=== PATIENT | male | born 1950 | race Caucasian/White ===

== ENCOUNTER → 2017-08-25 08:06 | Outpatient (CLI) | payer OTHER, MEDICARE, SELFPAY ==
--- NOTE | 2017-08-25 08:11 | RDU_ITS ---
Reason For Study: Stenosis Right Renal Artery Left Renal Artery Right renal artery ostium Left renal artery ostium 122.0/31.9 131.0/33.3 RSV/EDV. PSV/EDV. Right renal artery proximal Left renal artery proximal PSV/EDV 125.0/36.2 PSV/EDV. 124.0/42.9 . Right renal artery mid 130.0/35.6 Left renal artery mid 123.0/39.2 PSV/EDV. PSV/EDV . Right renal artery distal Left renal artery distal 126.0/50.2 121.0/37.4 PSV/EDV. PSV/EDV. Right Renal Parenchyma Left Renal Parenchyma Upper Pole Medula 52.4/14.1 Left upper pole medulla 44.7/15.5 PSV/EDV. PSV/EDV . Right upper pole medulla EDR .27 . Left upper pole medulla EDR .35 . Right upper pole medulla R.I. .73 . Left upper pole medulla R.I. .65 . Upper Andrey Cortx 32.1/9.5 PSV/EDV. UP Cortex 25.1/8.7 PSV/EDV. Right upper pole cortex EDR .30 . Left upper pole cortex EDR .35 . Right upper pole cortex R.I. .70 . Left upper pole cortex R.I. .65 . Right lower Pole medulla 44.0/11.3 Left lower Pole medulla 31.5/9.6 PSV/EDV . PSV/EDV . Right lower pole medulla EDR .26 . Left lower pole medulla EDR .30 . Right lower pole medulla R.I. .74 . Left lower pole medulla R.I. .70 . Lower Pole Cortex 29.6/7.6 PSV/EDV. Lower Pole Cortx 43.3/15.5 PSV/EDV. Right lower pole cortex EDR .26 . Left lower pole cortex EDR .36 . Right lower pole cortex R.I. .74 . Left lower pole cortex R.I. .64 . Right Renal Hilar Left Renal Hilar Right Hilar avg 61.6/21.4 PSV/EDV. LT Hilar avg 54.7/19.6 PSV/EDV . Right hilar acceleration time 59 Left hilar acceleration time 73 m/sec. m/sec. Right Renal Dimensions Left Renal Dimensions Right kidney size 9.1 cm . Left kidney size 9.0 cm . Right cortical dimension 1.5 cm . Left cortical dimension 1.5 cm . Procedures Technically difficult due to body habitus. Aorta not visualized. Interpretation Summary Renal artery velocities are bilaterally normal. Acceleration times are normal bilaterally. There is no evidence of hemodynamically significant renal artery stenosis on either side. Cortical dimensions are bilaterally normal. Kidneys appear normal in size bilaterally. The intra-abdominal aorta was not visualized. Ordering Physician: Tacos Sutton Performed By: Cheryl Benz RVT
== END ==
PROVIDERS: Family Provider Family Medicine; PCP Family Medicine; Visit Provider Family Medicine
DX: I70.1 Atherosclerosis of renal artery (principal); I71.4 Abdominal aortic aneurysm, without rupture
CPT/HCPCS: 93975

== ENCOUNTER → 2017-09-22 11:44 | Outpatient (CLI) | payer OTHER, MEDICARE, SELFPAY ==
[2017-09-22 15:48] LABS: Absolute Lymphocyte Count 1.04 X10^3/ul (0.83-4.51); Absolute Neutrophil Count 5.3 X10^3/uL (2.0-7.7); Basophil# 0.03 X10^3/uL; Basophil% 0.4 % (0-1); Eosinophil# 0.28 X10^3/uL; Eosinophils% 3.8 % (0-5); Hematocrit 40.9 % (40-54); Hemoglobin 13.5 g/dl (13.0-16.5); Lymphocyte # 1.04 X10^3/ul (4.0); Lymphocyte % 14.1 % (19-41); Mean Corpuscular Hgb 29.5 pg (27.0-32.0); Mean Corpuscular Volume 89.5 fL (80-94); Mean Platelet Vol. 9.4 fl (6.2-12.0); Monocyte# 0.72 X10^3/uL; Monocyte% 9.8 % (0-10); Neutrophil % 71.8 % (47-70); Platelet Count 334 K/mm3 (150-450); RBC Distribution Width CV 14.2 % (11.6-14.6); Red Blood Count 4.57 M/mm3 (4.6-6.2); White Blood Count 7.4 K/mm3 (4.4-11.0)
[2017-09-22 15:49] LABS: POSITIVE COUNT NO; POSITIVE DIFFERENTIAL NO; POSITIVE MORPHOLOGY NO
[2017-09-22 15:54] LABS: ALB/GLOB Ratio 0.7 RATIO (0.9-2.4); AST(SGOT) 12 U/L (15-37); Alanine Aminotransfer ALT/SGPT 21 U/L (16-61); Albumin, Serum 3.2 g/dL (3.2-5.0); Alkaline Phosphatase 93 U/L (45-117); Anion Gap 9 (5-15); BUN 26 mg/dL (7-18); BUN/Creat Ratio 17.7 RATIO (10-20); Calcium,Total 8.8 mg/dL (8.5-10.1); Chloride 104 mmol/L (98-107); Cholesterol 191 mg/dL (200); Creatinine, Serum 1.47 mg/dL (0.70-1.30); EST Glomerular Filtration Rate 51 mL/min (>60); Est Glom Filt Rate - Afr Amer 61 mL/min (>60); Globulin 4.3 g/dL (2.2-4.2); Glucose 128 mg/dL (74-106); High Density Lipoprotein 52 mg/dL; Potassium 3.6 mmol/L (3.5-5.1); Protein, Total 7.5 g/dL (6.4-8.2); Sodium Level 141 mmol/L (136-145); Triglycerides 109 mg/dL; Very Low Density Lipoprotein 22 mg/dL (5-40)
== END ==
PROVIDERS: Family Provider Family Medicine; PCP Family Medicine; Visit Provider Family Medicine
DX: I10 Essential (primary) hypertension (principal); E78.5 Hyperlipidemia, unspecified
CPT/HCPCS: 36415; 80053; 80061; 85025

== ENCOUNTER → 2018-03-08 06:54 | Outpatient (CLI) | payer MEDICARE, OTHER, SELFPAY ==
--- NOTE | 2018-03-08 13:50 | STRESSREP ---
Stress Test Report Date: 03/08/2018 Procedure: Pharmacologic stress nuclear imaging study Indications: Fatigue Consent: Per the patient Procedure: The patient underwent pharmacologic (Regadenoson) evaluation with a peak heart rate of 108 beats per minute (70 predicted maximal heart rate) and a peak blood pressure of 158/88 mmHg. The baseline ECG demonstrated normal sinus rhythm. The peak pharmacologic ECG demonstrated no obvious ECG changes. There were occasional PACs pretest. There was no complaint of chest discomfort during pharmacologic infusion or recovery. The examination was discontinued secondary to completion of protocol. Impression: 1. Pharmacologic (Regadenoson) evaluation 2. Peak pharmacologic ECG with with no obvious ECG changes. 3. There were no cardiac dysrhythmias pretest, during pharmacologic infusion, or recovery. 4. Nuclear images pending Myocardial perfusion imaging study: Technique: The patient was injected with 14.7 millicuries of technetium 99m Cardiolite and subsequently rest SPECT Cardiolite nuclear imaging was obtained in the horizontal long, vertical long, and short axis views. The patient underwent pharmacologic (Regadenoson) evaluation with a peak heart rate of 108 beats per minute (70 % percent predicted maximal heart rate) and a peak blood pressure of 158/88 mmHg. The patient was injected with 44.5 millicuries of technetium 99m Cardiolite and subsequently stress SPECT Cardiolite nuclear imaging was obtained in the horizontal long, vertical long, and short axis views. A gated Cardiolite study at peak stress was obtained. Interpretation: Rest and stress SPECT Cardiolite nuclear imaging status post realignment, normalization, and attenuation correction demonstrate extracardiac/gastrointestinal tracer uptake near the inferior segments and relative uniform tracer uptake and myocardial perfusion appearing within normal limits. There is end systolic thickening and brightening. The gated Cardiolite study demonstrates myocardial thickening and inward wall motion. The reported LVEF is 70 %. Impression: 1. Rest and stress SPECT Cardiolite nuclear imaging demonstrate relative uniform tracer uptake and myocardial perfusion appearing within normal limits. 2. The gated Cardiolite study reports an LVEF of 70 %. This note was generated with [email or web address] software. It may contain incorrect words, spelling, and punctuation that were not noted in checking the note before signing.
--- NOTE | 2018-03-08 13:53 | STRESSREP_ITS ---
Stress Test Report Date: 03/08/2018 Procedure: Pharmacologic stress nuclear imaging study Indications: Fatigue Consent: Per the patient Procedure: The patient underwent pharmacologic (Regadenoson) evaluation with a peak heart rate of 108 beats per minute (70 predicted maximal heart rate) and a peak blood pressure of 158/88 mmHg. The baseline ECG demonstrated normal sinus rhythm. The peak pharmacologic ECG demonstrated no obvious ECG changes. There were occasional PACs pretest. There was no complaint of chest discomfort during pharmacologic infusion or recovery. The examination was discontinued secondary to completion of protocol. Impression: 1. Pharmacologic (Regadenoson) evaluation 2. Peak pharmacologic ECG with with no obvious ECG changes. 3. There were no cardiac dysrhythmias pretest, during pharmacologic infusion, or recovery. 4. Nuclear images pending Myocardial perfusion imaging study: Technique: The patient was injected with 14.7 millicuries of technetium 99m Cardiolite and subsequently rest SPECT Cardiolite nuclear imaging was obtained in the horizontal long, vertical long, and short axis views. The patient underwent pharmacologic (Regadenoson) evaluation with a peak heart rate of 108 beats per minute (70 % percent predicted maximal heart rate) and a peak blood pressure of 158/88 mmHg. The patient was injected with 44.5 millicuries of technetium 99m Cardiolite and subsequently stress SPECT Cardiolite nuclear imaging was obtained in the horizontal long, vertical long, and short axis views. A gated Cardiolite study at peak stress was obtained. Interpretation: Rest and stress SPECT Cardiolite nuclear imaging status post realignment, normalization, and attenuation correction demonstrate extracardiac/enio rointestinal tracer uptake near the inferior segments and relative uniform tracer uptake and myocardial perfusion appearing within normal limits. There is end systolic thickening and brightening. The gated Cardiolite study demonstrates myocardial thickening and inward wall motion. The reported LVEF is 70 %. Impression: 1. Rest and stress SPECT Cardiolite nuclear imaging demonstrate relative uniform tracer uptake and myocardial perfusion appearing within normal limits. 2. The gated Cardiolite study reports an LVEF of 70 %. This note was generated with [email or web address] software. It may contain incorrect words, spelling, and punctuation that were not noted in checking the note before signing.
== END ==
PROVIDERS: Family Provider Family Medicine; PCP Family Medicine; Referring Provider Family Medicine; Visit Provider Family Medicine
DX: R07.9 Chest pain, unspecified (principal); I10 Essential (primary) hypertension; E78.5 Hyperlipidemia, unspecified
CPT/HCPCS: 78452; 93017; A9500; A4216; J2785

== ENCOUNTER → 2018-09-07 11:23 | Outpatient (CLI) | payer MEDICARE, OTHER, SELFPAY ==
[2013-07-17 12:47] VITALS: BMI 38.2
[2018-09-07 16:12] LABS: Absolute Lymphocyte Count 0.96 X10^3/ul (0.83-4.51); Absolute Neutrophil Count 5.3 X10^3/uL (2.0-7.7); Basophil# 0.05 X10^3/uL; Basophil% 0.7 % (0-1); Eosinophil# 0.21 X10^3/uL; Eosinophils% 2.9 % (0-5); Hematocrit 41.2 % (40-54); Hemoglobin 13.1 g/dl (13.0-16.5); Lymphocyte # 0.96 X10^3/ul (4.0); Lymphocyte % 13.1 % (19-41); Mean Corp Hgb Conc 31.8 g/gl (32-36); Mean Corpuscular Hgb 28.7 pg (27.0-32.0); Mean Corpuscular Volume 90.2 fL (80-94); Mean Platelet Vol. 9.1 fl (6.2-12.0); Monocyte# 0.78 X10^3/uL; Monocyte% 10.6 % (0-10); Neutrophil # 5.32 X10^3/uL (2.7-7.7); Neutrophil % 72.6 % (47-70); Platelet Count 334 K/mm3 (150-450); RBC Distribution Width CV 14.7 % (11.6-14.6); RBC Distribution Width SD 48.1 fl (35.1-43.9); Red Blood Count 4.57 M/mm3 (4.6-6.2); White Blood Count 7.3 K/mm3 (4.4-11.0)
[2018-09-07 16:20] LABS: POSITIVE COUNT NO; POSITIVE DIFFERENTIAL NO; POSITIVE MORPHOLOGY NO
[2018-09-07 16:22] LABS: ALB/GLOB Ratio 0.8 RATIO (0.9-2.4); AST(SGOT) 17 U/L (15-37); Alanine Aminotransfer ALT/SGPT 23 U/L (16-61); Albumin, Serum 3.3 g/dL (3.2-5.0); Alkaline Phosphatase 99 U/L (45-117); Anion Gap 6 (5-15); BUN 19 mg/dL (7-18); BUN/Creat Ratio 12.3 RATIO (10-20); Calcium,Total 8.7 mg/dL (8.5-10.1); Chloride 104 mmol/L (98-107); Creatinine, Serum 1.54 mg/dL (0.70-1.30); EST Glomerular Filtration Rate 48 mL/min (>60); Est Glom Filt Rate - Afr Amer 58 mL/min (>60); Globulin 4.4 g/dL (2.2-4.2); Glucose 111 mg/dL (74-106); Potassium 3.8 mmol/L (3.5-5.1); Protein, Total 7.7 g/dL (6.4-8.2); Sodium Level 140 mmol/L (136-145); Thyroid Stim Hormone (TSH) 1.25 uIU/mL (0.358-3.74)
[2018-09-07 16:29] LABS: Vitamin B12 1186 pg/mL (211-911)
[2018-09-07 16:49] LABS: Hemoglobin A1c 6.5 % (4.2-6.3)
== END ==
PROVIDERS: Family Provider Family Medicine; PCP Family Medicine; Visit Provider Family Medicine
DX: R20.2 Paresthesia of skin (principal); R09.89 Other specified symptoms and signs involving the circulatory and respiratory systems; R73.01 Impaired fasting glucose; G62.9 Polyneuropathy, unspecified
CPT/HCPCS: 36415; 80053; 82607; 83036; 84443; 85025

== ENCOUNTER → 2020-01-29 10:22 | Outpatient (CLI) | payer MEDICARE, OTHER, SELFPAY ==
[2013-07-17 12:47] VITALS: BMI 38.2
[2020-01-29 12:10] LABS: Absolute Lymphocyte Count 1.06 X10^3/uL (0.83-4.51); Absolute Neutrophil Count 5.6 X10^3/uL (2.0-7.7); Basophil# 0.05 X10^3/uL; Basophil% 0.6 % (0-1); Eosinophil# 0.26 X10^3/uL; Eosinophils% 3.4 % (0-5); Hematocrit 41.2 % (40-54); Hemoglobin 13.3 g/dL (13.0-16.5); Lymphocyte # 1.06 X10^3/ul (4.0); Lymphocyte % 13.7 % (19-41); Mean Corp Hgb Conc 32.3 g/dL (32-36); Mean Corpuscular Hgb 29.6 pg (27.0-32.0); Mean Corpuscular Volume 91.6 fL (80-94); Mean Platelet Vol. 9.4 fl (6.2-12.0); Monocyte# 0.71 X10^3/uL; Monocyte% 9.2 % (0-10); NRBC Flagged by Analyzer 0 % (0-5); Neutrophil # 5.64 X10^3/uL (2.7-7.7); Neutrophil % 72.7 % (47-70); Platelet Count 371 K/mm3 (150-450); RBC Distribution Width CV 13.5 % (11.6-14.6); RBC Distribution Width SD 44.8 fl (35.1-43.9); White Blood Count 7.8 K/mm3 (4.4-11.0)
[2020-01-29 12:31] LABS: Hemoglobin A1c 6.3 % (3.8-5.6)
[2020-01-29 12:35] LABS: ALB/GLOB Ratio 0.7 RATIO (0.9-2.4); AST(SGOT) 14 U/L (15-37); Alanine Aminotransfer ALT/SGPT 18 U/L (16-61); Albumin, Serum 3.3 g/dL (3.2-5.0); Alkaline Phosphatase 95 U/L (45-117); Anion Gap 4 (5-15); BUN 25 mg/dL (7-18); Calcium,Total 8.9 mg/dL (8.5-10.1); Chloride 106 mmol/L (98-107); Cholesterol 190 mg/dL (200); Creatinine, Serum 1.67 mg/dL (0.70-1.30); EST Glomerular Filtration Rate 44 mL/min (>60); Est Glom Filt Rate - Afr Amer 53 mL/min (>60); Globulin 4.8 g/dL (2.2-4.2); Glucose 103 mg/dL (74-106); High Density Lipoprotein 47 mg/dL; PSA,Total - Annual Screen 0.13 ng/mL (0.00-4.00); Potassium 4.1 mmol/L (3.5-5.1); Protein, Total 8.1 g/dL (6.4-8.2); Sodium Level 138 mmol/L (136-145); Triglycerides 174 mg/dL; Very Low Density Lipoprotein 35 mg/dL (5-40)
== END ==
PROVIDERS: PCP Family Medicine; Visit Provider Family Medicine
DX: E11.22 Type 2 diabetes mellitus with diabetic chronic kidney disease (principal); I12.9 Hypertensive chronic kidney disease with stage 1 through stage 4 chronic kidney disease, or unspecified chronic kidney disease; N18.3 Chronic kidney disease, stage 3 (moderate); Z12.5 Encounter for screening for malignant neoplasm of prostate; E78.5 Hyperlipidemia, unspecified
CPT/HCPCS: 36415; 80053; 80061; 83036; 84153; 85025; G0103

== ENCOUNTER 2020-03-29 14:38 | Inpatient (IN) | payer MEDICARE, OTHER, SELFPAY ==
[2020-03-29] VITALS (12 sets, daily range): BP systolic 131–180; BP diastolic 65–104; PULSE 92–121; RESP 18–21; TEMP 36.6–37.8; O2SAT 90–94; BMI 41.7; BMI 41.8
--- NOTE | 2020-03-29 14:51 | CT_ITS ---
STUDY: CT CERVICAL SPINE WITHOUT CONTRAST REASON FOR EXAM: Male, 69 years old. Syncope, fell off toilet, on blood thinners, neck pain. Hx hypertension, skin cancer. RADIATION DOSAGE (If Supplied By Facility): CTDIvol = ( 27.27 ) mGy, DLP = ( 539.73 ) mGycm TECHNIQUE: High resolution transaxial imaging was performed without contrast material. Sagittal and coronal images were reconstructed. Individualized dose optimization techniques were used for this CT. COMPARISON: None FINDINGS: Normal craniovertebral junction. Normal anterior atlantoaxial articulation. Normal odontoid process. Normal cervical lordosis. Normal vertebral bodies and posterior osseous elements. C2-3: Normal endplates. Normal disc height and morphology. Normal central canal and intervertebral neuroforamina. C3-4: Normal endplates. Normal disc height and morphology. Normal central canal and intervertebral neuroforamina. C4-5: Facet joint osteoarthritis on the right side. No significant stenosis seen. C5-6: There is evidence of uncovertebral arthrosis. Mild degree of bilateral neural foraminal stenosis. C6-7: Normal endplates. Normal disc height and morphology. Normal central canal and intervertebral neuroforamina. C7-T1: Normal endplates. Normal disc height and morphology. Normal central canal and intervertebral neuroforamina. Atherosclerotic plaque formation of the carotid bifurcations. CT/Spine Cervical without Contras IMPRESSION: Multilevel degenerative changes, as described above. Electronically Signed: Timothy Cruz, at 15:29 EDT , Service support ,
--- NOTE | 2020-03-29 14:51 | CT_ITS ---
STUDY: CT BRAIN WITHOUT CONTRAST REASON FOR EXAM: Male, 69 years old. Syncope, fell off toilet, on blood thinners, neck pain. Hx hypertension, skin cancer. RADIATION DOSAGE (If Supplied By Facility): CTDIvol = ( 44.99 ) mGy, DLP = ( 812.98 ) mGycm TECHNIQUE: Transaxial CT imaging of the brain was performed without administration of intravenous contrast material. Individualized dose optimization techniques were used for this CT. COMPARISON: 06/12/2013 FINDINGS: Normal soft tissue structures. Normal calvarium. There is mild cerebral atrophy with widening of the extra-axial spaces and ventricular dilatation. There are areas of decreased attenuation within the white matter tracts of the supratentorial brain, consistent with microvascular disease changes. There are small punctate calcifications of the basal ganglia which are seen in the aging brain as a normal variant. Normal brainstem. Normal cerebellum. There is no intracranial hemorrhage. There are no findings of an acute ischemic infarction. There is mucoperiosteal inflammatory disease of the paranasal sinuses consistent with moderate chronic sinusitis. CT/Brain/Head without Contrast IMPRESSION: Chronic involutional changes of the brain. Electronically Signed: Berry Teague MD at 15:34 EDT Tel , Service support ,
--- NOTE | 2020-03-29 14:53 | EKG12_ITS ---
Test Reason : Blood Pressure : / mmHG Vent. Rate : 112 BPM Atrial Rate : 112 BPM P-R Int : 150 ms QRS Dur : 074 ms QT Int : 324 ms P-R-T Axes : 047 -19 024 degrees QTc Int : 442 ms Sinus tachycardia Possible Inferior infarct , age undetermined Abnormal ECG Confirmed by CLIFF RODRIGUEZ, JARRETT ([id number]), material expeditor DEWEY MACHADO ([id number]) on 04/02/2020 11:14:20 AM Referred By: JACKY Confirmed By:JARRETT CORONADO MD
--- NOTE | 2020-03-29 14:54 | ED.DCSUM_ITS ---
History of Present Illness Informant: Patient Onset: Today Narrative: 69-year-old male with a past medical history of hypertension presents after syncopal episode. He was on the toilet having a bowel movement when he suddenly felt dizzy and fainted, falling forward and striking his head on the ground. He lost consciousness for an unknown duration. When he woke up he was dizzy for approximately 30 minutes. He called the squad to help him get up. He now has a mild headache, nausea, neck pain, and left-sided back pain. He states otherwise he is feeling well. He has had a productive cough for the last week. Denies fevers, chills, chest pain, shortness of breath, abdominal pain, diarrhea, or urinary symptoms. No focal neurological symptoms. <Leatha Silva - Last Filed: 03/29/20 17:53> <Victoriano Ann - Last Filed: 03/29/20 19:56> Chief Complaint: Syncope Past Medical History Past Medical History: - - hypertension Smoking Status: Former smoker <Leatha Silva - Last Filed: 03/29/20 17:53> - Family History Maternal Family History: Reports: Heart Disease Paternal Family History: Reports: Heart Disease <Victoriano Ann - Last Filed: 03/29/20 19:56> - Allergies and Home Meds Allergies/Adverse Reactions: Allergies Penicillins Allergy (Verified 07/05/13 14:39) Other DIFFICULTY BREATHING/ PASSED OUT Primary Care Physician: Tacos Sutton DO [Primary Care Provider] - Review of Systems General: Denies: Chills, Fever, Sweats Eyes: Denies: Visual changes - bilaterally, Diplopia ENT: Denies: Rhinorrhea, Sore throat Cardiovascular: Denies: Chest pain, Palpitations Respiratory: Reports: Cough, Sputum. Denies: Dyspnea, Dyspnea on exertion Gastrointestinal: Denies: Abdominal pain, Nausea, Vomiting, Diarrhea, Melena, Hematochezia Musculoskeletal: Reports: Neck pain, Back pain. Denies: Myalgias, Extremity Pain Skin: Denies: Abrasions, Wounds Neurological: Reports: Headache. Denies: Weakness, Parasthesia, Numbness <Leatha Silva - Last Filed: 03/29/20 17:53> Physical Exam Vital Signs/Narrative: Vital Signs Temp Pulse Resp BP Pulse Ox 03/29/20 14:49 100.1 F H 121 H 21 H 150/97 H 93 03/29/20 14:39 100.1 F H 120 H 20 H 150/97 H 92 General: Well nourished, Well developed, No Acute Distress Head: Normocephalic, Atraumatic - Head atraumatic, no deformity or crepitus. No racoon eyes, tabares sign, hemotympanum, septal hematoma, or CSF otorhhea/rhinorhhea. , - Eyes: Perrl, EOMI ENT: Moist mucous membranes, No rhinorrhea, TM's clear Neck: Supple, - - midline cervical tenderness, no step off or crepitus Cardiovascular: Regular rhythm, Tachycardia Respiratory: No distress, CTA bilaterally, Chest nontender Abdomen: Soft, Nontender, Nondistended Back: Normal Inspection, - - No midline spinal tenderness, no step off or crepitus. Tender over left trapezius . Negative for: Spinal tenderness Extremities: Nontender Skin: Normal color, No rash Neurological: Alert, Oriented x3, Cranial nerves II-XII grossly intact, Normal Strength, Normal Sensation Psychological: Normal affect, Normal Mood <Leatha Silva - Last Filed: 03/29/20 17:53> Vital Signs/Narrative: Vital Signs Pulse Resp BP Pulse Ox 03/29/20 19:05 99 18 141/65 H 90 03/29/20 18:10 110 H 18 168/104 H 93 03/29/20 17:03 109 H 19 H 92 03/29/20 16:18 109 H 18 177/103 H 90 03/29/20 15:58 110 H 20 H 180/100 H 92 <Victoriano Ann - Last Filed: 03/29/20 19:56> Diagnostic/Tx/Re-eval Clinical Impression(s) from Imaging Studies Brain CT 03/29/20 14:51 IMPRESSION: Chronic involutional changes of the brain. Electronically Signed: Berry Teague MD at 15:34 EDT Tel , Service support , Cervical Spine CT 03/29/20 14:51 IMPRESSION: Multilevel degenerative changes, as described above. Electronically Signed: Timothy Cruz, at 15:29 EDT , Service support , Chest X-Ray 03/29/20 15:17 IMPRESSION: Mild increased markings at the left lung base suggestive of either linear atelectasis and/or scarring. Electronically Signed: Timothy Cruz, at 15:30 EDT , Service support , Laboratory Data 03/29/20 03/29/20 03/29/20 15:30 15:30 15:30 WBC 9.3 RBC 5.10 Hgb 14.9 Hct 45.4 MCV 89.0 MCH 29.2 MCHC 32.8 RDW Std Deviation 44.0 H RDW Coeff of Ambreen 13.4 Plt Count 284 MPV 9.4 Immature Gran % (Auto) 0.200 Neut % (Auto) 82.3 H Lymph % (Auto) 7.9 L [place] % (Auto) 9.5 Eos % (Auto) 0.0 Baso % (Auto) 0.1 Absolute Neuts (auto) 7.7 Absolute Lymphs (auto) 0.74 L Nucleated RBC % 0 Sodium 136 Potassium 3.8 Chloride 100 Carbon Dioxide 30.0 Anion Gap 6 BUN 26 H Creatinine 2.03 H Estim Creat Clear Calc 34.34 Est GFR (MDRD) Af Amer 42 L Est GFR (MDRD) Non-Af 35 L BUN/Creatinine Ratio 12.8 Glucose 118 H Lactic Acid 1.1 Calcium 9.2 Troponin I < 0.015 Urine Color Urine Clarity Urine pH Ur Specific [place] Urine Protein Urine Glucose (UA) Urine Ketones Urine Occult Blood Urine Nitrite Urine Bilirubin Urine Urobilinogen Ur Leukocyte Esterase 03/29/20 16:55 WBC RBC Hgb Hct MCV MCH MCHC RDW Std Deviation RDW Coeff of [place] Plt Count MPV Immature Gran % (Auto) Neut % (Auto) Lymph % (Auto) [place] % (Auto) Eos % (Auto) Baso % (Auto) Absolute Neuts (auto) Absolute Lymphs (auto) Nucleated RBC % Sodium Potassium Chloride Carbon Dioxide Anion Gap BUN Creatinine Estim Creat Clear Calc Est GFR (MDRD) Af Amer Est GFR (MDRD) Non-Af BUN/Creatinine Ratio Glucose Lactic Acid Calcium Troponin I Urine Color Yellow Urine Clarity Clear Urine pH 6.5 Ur Specific [place] 1.010 Urine Protein 30 H Urine Glucose (UA) Normal Urine Ketones Negative Urine Occult Blood 10 H Urine Nitrite Negative Urine Bilirubin Negative Urine Urobilinogen Normal Ur Leukocyte Esterase Negative - Medical Decision Making Patient presented after syncopal episode with closed head injury and loss of consciousness with post syncopal dizziness. He appears well nontoxic. Vital signs show BP of 177/103, tachycardia in 120s, 90% on room air, 100.1 Fahrenheit. He is sitting comfortably in no respiratory distress. No signs of basilar skull fracture or obvious injuries on exam. Normal medical and neurological exam. Due to tachycardia and low grade fever, sepsis labs initiated. No leukocytosis and lactate is negative. Creatinine is 2 which is mildly elevated from 1.7 on 01/29/20. Urinalysis is normal. COVID-19 pending. EKG shows sinus tachycardia at rate of 112. No acute ischemic changes. Troponin negative. CT brain/C-spine are negative. Chest x-ray shows no acute process. Due to persistent tachycardia and 90% pulse ox, CTA will be obtained. <Leatha Silva - Last Filed: 03/29/20 17:53> Clinical Impression(s) from Imaging Studies Brain CT 03/29/20 14:51 IMPRESSION: Chronic involutional changes of the brain. Electronically Signed: Berry Teague MD at 15:34 EDT Tel , Service support , Cervical Spine CT 03/29/20 14:51 IMPRESSION: Multilevel degenerative changes, as described above. Electronically Signed: Timothy Cruz, at 15:29 EDT , Service support , Chest X-Ray 03/29/20 15:17 IMPRESSION: Mild increased markings at the left lung base suggestive of either linear atelectasis and/or scarring. Electronically Signed: Timothy Cruz, at 15:30 EDT , Service support , Chest CTA 03/29/20 17:52 IMPRESSION: Limited study. No central or segmental pulmonary embolus. No thoracic aortic aneurysm or dissection. No pulmonary infiltrates or pleural effusions. Atherosclerosis and coronary artery disease. Small hiatal hernia. Gallstones. Electronically Signed: Ehsan Alba, at 18:37 EDT Tel , Service support , - Medical Decision Making The patient presents with syncopal episode and tachycardia. He was initially borderline hypoxic with saturations of 90%. Head CT and C-spine were obtained which were negative. Patient does have mild renal insufficiency. With his low- grade fever, metabolic work-up was pursued. Labs are relatively unremarkable. I did obtain a CTA given his persistent tachycardia. This was negative. However, the patient's Covid was positive. With his borderline hypoxia and syncope, I do feel that he would benefit from admission. Impression 1. Syncope 2. Tachycardia 3. Covid infection <Victoriano Ann - Last Filed: 03/29/20 19:56> ED Disposition <Leatha Silva - Last Filed: 03/29/20 17:53> <Victoriano Ann - Last Filed: 03/29/20 19:56> - Plan for ED Patient: Disposition: Home or Assisted Living Referrals: Tacos Sutton DO [Primary Care Provider] -
--- NOTE | 2020-03-29 15:17 | RAD_ITS ---
STUDY: X-RAY CHEST REASON FOR EXAM: Male, 69 years old. SYNCOPE, DIZZINESS TECHNIQUE: Single AP portable view of the chest. COMPARISON: None. FINDINGS: EKG electrodes are seen. Minimal increased markings at the left lung base. This may represent either linear atelectasis and/or scarring. There is no demonstrated pleural abnormality. Normal size heart. Normal mediastinum and gabriela. Normal visualized pulmonary arteries. There is atherosclerotic calcification of the aortic arch with tortuosity. There are diffuse degenerative changes of the visualized thoracic spine. Normal visualized ribs, clavicles, and shoulders. There is no demonstrated abnormality of the visualized soft tissue structures of the upper abdomen. RAD/Chest 1 View (Portable) IMPRESSION: Mild increased markings at the left lung base suggestive of either linear atelectasis and/or scarring. Electronically Signed: Timothy Cruz, at 15:30 EDT , Service support ,
[2020-03-29 15:37] LABS: Absolute Lymphocyte Count 0.74 X10^3/uL (0.83-4.51); Absolute Neutrophil Count 7.7 X10^3/uL (2.0-7.7); Basophil# 0.01 X10^3/uL; Basophil% 0.1 % (0-1); Hematocrit 45.4 % (40-54); Hemoglobin 14.9 g/dL (13.0-16.5); Lymphocyte # 0.74 X10^3/ul (4.0); Lymphocyte % 7.9 % (19-41); Mean Corp Hgb Conc 32.8 g/dL (32-36); Mean Corpuscular Hgb 29.2 pg (27.0-32.0); Mean Platelet Vol. 9.4 fl (6.2-12.0); Monocyte# 0.89 X10^3/uL; Monocyte% 9.5 % (0-10); NRBC Flagged by Analyzer 0 % (0-5); Neutrophil # 7.67 X10^3/uL (2.7-7.7); Neutrophil % 82.3 % (47-70); Platelet Count 284 K/mm3 (150-450); RBC Distribution Width CV 13.4 % (11.6-14.6); White Blood Count 9.3 K/mm3 (4.4-11.0)
[2020-03-29 16:01] LABS: Anion Gap 6 (5-15); BUN 26 mg/dL (7-18); BUN/Creat Ratio 12.8 RATIO (10-20); Calcium,Total 9.2 mg/dL (8.5-10.1); Chloride 100 mmol/L (98-107); Creatinine, Serum 2.03 mg/dL (0.70-1.30); EST Glomerular Filtration Rate 35 mL/min (>60); Est Glom Filt Rate - Afr Amer 42 mL/min (>60); Estimated Creatinine Clearance 34.34 ml/min; Glucose 118 mg/dL (74-106); Potassium 3.8 mmol/L (3.5-5.1); Sodium Level 136 mmol/L (136-145)
[2020-03-29 16:08] LABS: Lactic Acid 1.1 mmol/L (0.4-1.9)
[2020-03-29] MEDS: Acetaminophen 500 MG Tablet 1000 MG PO (17:07)
[2020-03-29 17:19] LABS: Bacteria 0 SEEN /hpf (None Seen); Mucous, Urine 0 SEEN /hpf (<or=2+); Red Blood Cells-Urine 0 SEEN /hpf (0-5); Squamous Epithelial Cells - UA 0 SEEN /hpf (0-5); White Blood Cells 0 SEEN /hpf (0-5)
[2020-03-29 17:31] LABS: Color, Urine Yellow (Yellow); Glucose, Dipstick Normal (Normal); Ketone-Dipstick Negative (Negative); Leukocyte Esterase-Dipstick Negative /ul (Negative); Nitrite-Dipstick Negative (Negative); Occult Blood-Urine 10 /ul (Negative); Protein-Dipstick 30 mg/dl (Negative); Urine Bilirubin Dipstick Negative (Negative); Urine Clarity Clear (Clear); Urine Urobilinogen Normal (Normal); Urine pH 6.5 (5.0 - 8.0)
--- NOTE | 2020-03-29 17:52 | CT_ITS ---
STUDY: CTA CHEST REASON FOR EXAM: Male, 69 years old. PE/TACHYCARDIA/HYPOXIA. Per Dr. Mckeon (ER physician), inject even with creatinine of 2.03. Best images RADIATION DOSAGE (If Supplied By Facility): CTDIvol = ( 12.67 ) mGy, DLP = ( 567.05 ) mGycm TECHNIQUE: The examination was performed with the intravenous administration of IV 100mL [id number]. Post-processing of the angiographic images was performed, with multiplanar reformation and 3D reconstruction. Individualized dose optimization techniques were used for this CT. COMPARISON: None. FINDINGS: Evaluation for pulmonary embolus is limited by suboptimal contrast bolus. There is no central or segmental pulmonary embolus. The subsegmental branches are not well evaluated. There are no pulmonary infiltrates or pleural effusions. There is a calcified granuloma in the right lower lobe. The central airways are patent. There is no pneumothorax. There is no evidence of thoracic aortic aneurysm or dissection. There are atherosclerotic calcifications noted in the thoracic aorta. The heart and pericardium are within normal limits. There are coronary artery calcifications noted. Images through the upper abdomen demonstrate gallstones. There is a small hiatal hernia. There are no destructive osseous lesions. CT/CTA Chest W/WO Contrast IMPRESSION: Limited study. No central or segmental pulmonary embolus. No thoracic aortic aneurysm or dissection. No pulmonary infiltrates or pleural effusions. Atherosclerosis and coronary artery disease. Small hiatal hernia. Gallstones. Electronically Signed: Ehsan Alba, at 18:37 EDT Tel , Service support ,
--- NOTE | 2020-03-29 19:09 | ED.RN ---
called pt's and informed her that pt is being admitted.
--- NOTE | 2020-03-29 19:35 | HP.PCM_ITS ---
Problem List (1) SARS pneumonia Status: Acute (2) COVID-19 Status: Acute (3) Syncope and collapse Status: Acute (4) MADI (acute kidney injury) Status: Acute History of Present Illness Date of Admission: 03/29/20 Chief Complaint: SYNCOPE The patient is a 69 year old M with a significant history of hypertension who presents to the emergency department with syncope that occurred on the same day of presentation. Patient lost consciousness while sitting on the commode and fell forward hitting his left supraorbital area. He complains of pain at the left supraorbital area. Associated with symptoms is lightheadedness. Also he has been lethargic and fatigued for about a week. He feels nauseated. Also he has shortness of breath; chills, rigors and poor appetite. He denies a change in his smell sensation. However he has noticed a change in his taste. He reports a productive cough of greenish-yellow sputum. Patient did not check his temperature at home and is unsure whether he had a fever. Past Medical History Medical History: Medical History (Last Reviewed 03/29/20 @ 19:[address] Ajay Durham MD) Hypertension I10 Allergies Penicillins Allergy (Verified 07/05/13 14:39) Other DIFFICULTY BREATHING/ PASSED OUT Home Medications: Ambulatory Orders Medication Instructions Recorded Calcium (Elemental) [Os-Efe 500] 1,000 mg PO DAILY 07/05/13 Amlodipine [Norvasc] 10 mg PO DAILY 03/29/20 Hydrochlorothiazide [Hctz] 25 mg PO DAILY 03/29/20 Losartan Potassium [Cozaar] 100 mg PO DAILY 03/29/20 Magnesium Oxide [Magox 400] 400 mg PO DAILY 03/29/20 Vitamin E 400 units PO DAILY 03/29/20 Surgical History: total knee arthroplasty Smoking Status: Former smoker - *Family History Maternal History Items: Heart Disease Paternal History Items: Heart Disease Review of Systems Constitutional: Reports: Chills, Malaise, Weakness, Fatigue. Denies: Weight Change HEENT: Reports: Head Aches. Denies: Sinus Congestion, Sinus Drainage Cardiovascular: Reports: Light Headedness, Syncope. Denies: Chest Pain, Palpitations Respiratory: Reports: Cough, Shortness of Breath, Sputum production. Denies: Shortness of breath at rest Gastrointestinal: Reports: Nausea. Denies: Abdominal Pain, Vomiting Genitourinary: Denies: Dysuria Musculoskeletal: Denies: Joint Pain, Joint Tenderness Skin: Denies: Rash, Wounds Neurological: Denies: Numbness, Tingling, Focal weakness Psychiatric: Denies: Anxiety, Depression, Homicidal Ideations, Suicidal Ideations Hematologic/ Lymphatic: Denies: Easy Bruising, Easy Bleeding VTE Information - Inpt Only VTE Present on Admission: No VTE Mechan Device Prophylaxis: SCD's VTE Pharm Prophylaxis ordered?: No Patient Problems: Active and Suspected Problems (Last Updated 03/29/20 @ 19:[address] Ajay Durham MD) SARS pneumonia (Acute) COVID-19 (Acute) Syncope and collapse (Acute) MADI (acute kidney injury) (Acute) - Physical Exam Vitals/I&O's: Vital Signs Temp Pulse Resp BP Pulse Ox 100.1 F H 99 18 141/65 H 90 03/29/20 14:49 03/29/20 19:05 03/29/20 19:05 03/29/20 19:05 03/29/20 19:05 Oxygen Delivery Method Room Air Weight: 128.2 kg Body Mass Index (BMI) 41.7 General: Alert, Oriented x3, Cooperative HEENT: Atraumatic, PERRLA, EOMI, Normocephalic Neck: Supple, No JVD, Negative Carotid Bruits Lungs: Clear to auscultation, Normal air movement, No rhonchi, No wheeze, No rales Cardiovascular: Normal S1, Normal S2, No murmurs, Tachycardic Abdomen: Bowel Sounds Present, Soft, Non Tender Extremities: No edema, Capillary Refill Less than 3 Seconds Skin: No rashes, No breakdown, - - Ecchymosis at left periorbital area. Musculoskeletal: No Tenderness to Palpation of Joints or Extremities Neurological: Cranial nerves II-XII grossly intact Psych/Mental Status: Normal Affect, Appropriate Laboratory Results 03/29/20 15:30: WBC 9.3, RBC 5.10, Hgb 14.9, Hct 45.4, MCV 89.0, MCH 29.2, MCHC 32.8, RDW Std Deviation 44.0 H, RDW Coeff of Ambreen 13.4, Plt Count 284, MPV 9.4, Immature Gran % (Auto) 0.200, Neut % (Auto) 82.3 H, Lymph % (Auto) 7.9 L, [place] % (Auto) 9.5, Eos % (Auto) 0.0, Baso % (Auto) 0.1, Absolute Neuts (auto) 7.7, Absolute Lymphs (auto) 0.74 L, Nucleated RBC % 0 03/29/20 15:30: Sodium 136, Potassium 3.8, Chloride 100, Carbon Dioxide 30.0, Anion Gap 6, BUN 26 H, Creatinine 2.03 H, Estim Creat Clear Calc 34.34, Est GFR (MDRD) Af Amer 42 L, Est GFR (MDRD) Non-Af 35 L, BUN/Creatinine Ratio 12.8, Glucose 118 H, Calcium 9.2, Troponin I < 0.015 03/29/20 15:30: Lactic Acid 1.1 03/29/20 16:00: COVID-19 (SCOTT) Detected 03/29/20 16:55: Urine Color Yellow, Urine Clarity Clear, Urine pH 6.5, Ur Specific [place] 1.010, Urine Protein 30 H, Urine Glucose (UA) Normal, Urine Ketones Negative, Urine Occult Blood 10 H, Urine Nitrite Negative, Urine Bilirubin Negative, Urine Urobilinogen Normal, Ur Leukocyte Esterase Negative, Urine RBC 0 SEEN, Urine WBC 0 SEEN, Ur Squamous Epith Cells 0 SEEN, Urine Bacteria 0 SEEN, Urine Mucus 0 SEEN Current Medications Sodium Chloride () 1,000 mls @ 75 mls/hr IV .[id number] ROSALEE Assessment/Plan All Active Problems (Last Updated 03/29/20 @ 19:[address] Ajay Durham MD) SARS pneumonia (Acute) COVID-19 (Acute) Syncope and collapse (Acute) MADI (acute kidney injury) (Acute) SARS COVID-19 action Chest x-ray interpreted by radiologist and actual chest x-ray interpreted by mys elf: Mild increased markings at the left lung base suggestive of either linear atelectasis and/scarring. With tachycardia and hypoxia chest CTA was done at emergency department. Chest CTA did not show any aortic aneurysm or dissection. No pulmonary infiltrates or pleural effusion was noted. COVID-19 was positive. Discussed emergent department doctor to give Decadron IV. Decadron p.o. ordered. Infectious disease consult and pulmonology consult. Tylenol for fever and pain Mucinex for cough Incentive spirometer ordered. Syncope and collapse with concussion. Secondary to SARS Covid. Treatment of Covid as above. MADI Creatinine of 2.03 Baseline creatinine of 1.47-1.67. BUN of 26. BUN over creatinine is 12.8. Gentle IV hydration Trend BMP. Hypertension DVT prophylaxis Moderate to high risk of DVT/PE. Chest CT did not show PE. Because of concussion will avoid chemical chemoprophylaxis at this time. SCD ordered. Inpatient E&M: 48030 Init Hosp L3
[2020-03-29] MEDS: dexAMETHasone 10 MG/ML Vial 6 MG IV (20:30)
--- NOTE | 2020-03-29 21:01 | ED.RN ---
this nurse called pt's Saundra and informed her that pt was admitted to PCU 114.
[2020-03-29] MEDS: 0.9% Normal Saline 1,000 ML 75 ML IV (21:11)
[2020-03-30] MEDS: guaiFENesin 1,200 MG Tablet 1200 MG PO ×2 (00:15→10:33)
[2020-03-30 03:00] VITALS: PULSE 84
[2020-03-30 03:25] VITALS: BP 138/81; PULSE 81; RESP 20; TEMP 36.4; O2SAT 92
[2020-03-30 07:18] VITALS: PULSE 76
[2020-03-30 09:25] VITALS: BP 150/88; PULSE 87; RESP 18; TEMP 36.5; O2SAT 96
--- NOTE | 2020-03-30 10:20 | CASEMGMT ---
RN AUSTIN called patient in room for initial transition planning/care coordination assessment. RN AUSTIN introduced self and role at [facility]. Patient is alert and oriented. Patient willing to participate in assessment and is able to answer all questions appropriately. Care providers, pharmacy, and demographics verified. Patient wishes to discharge home, denies need for home health at this time. Patient states he has no further needs or concerns at this time. CM to follow for discharge planning needs that may arise. PCP: Herman Specialists: None Preferred Pharmacy: [facility] in [facility] retail ok at discharge Insurance: [facility] Prescription Benefit: yes Living Will/HPOA: yes, Saundra Zhu LNOK: Living Arrangements: Patient lives with in a 2 story condo with bed and bath on main level. No steps to enter the home. Patient states he is independent at home. Patient and able to self isolate at home. Transportation: self/ DME/HHC: Patient states he has shower chair, raised toilet, cane, walker, grab bars at home. Will monitor for need for home oxygen. Disposition Plan: Patient to discharge home with family support and follow-up plans in place. Geovanna HAMILTON, RN, CM
[2020-03-30 10:22] VITALS: BP 131/85; BP 150/88; BP 151/93; PULSE 101; PULSE 87; PULSE 93
[2020-03-30] MEDS: Calcium (Elemental) 500 MG Tablet 1000 MG PO (10:34)
[2020-03-30] MEDS: Magnesium Chloride 64 MG Delay Rel.Tablet 128 MG PO (10:34)
[2020-03-30] MEDS: Vitamin E 400 UNITS Capsule PO (10:34)
[2020-03-30] MEDS: dexAMETHasone 4 MG Tablet 6 MG PO (10:34)
[2020-03-30] MEDS: amLODIPine 10 MG Tablet PO (10:35)
[2020-03-30] MEDS: 0.9% Normal Saline 1,000 ML 75 ML IV (10:36)
--- NOTE | 2020-03-30 11:28 | DCINST_ITS ---
- Discharge Diagnoses Current Active Problems: Current Active and Chronic Problems (Last Reviewed 03/29/20 @ 19:[address] Ajay Duhram MD) SARS pneumonia (Acute) COVID-19 (Acute) Syncope and collapse (Acute) MADI (acute kidney injury) (Acute) You will use the following diet at home:: No restrictions Your food should be the consistency of: Regular Discharge Activity: Return to Normal Activity, - - get up slowly Call your doctor if you observe: Fever of 101 or Higher, Shortness of breath Additional Instructions: Self isolate for at least 10 days since symptoms began or the first postive COVID-19 test AND at least one day (24 hours) have passed since resolution of fever without the use of fever-reducing agents AND improvement of symptoms (e.g., cough, shortness of breath) When around people in the same room, wear a face mask. Individuals also in the room should wear a mask. If possible, use a different bathroom and bedroom. Perform adequate hand hygiene. Avoid sharing dishes, glasses, etc. Family members with close contact with you and/or postive for COVID-19 should follow these instructions. Allergies/Adverse Reactions: Allergies Penicillins Allergy (Verified 07/05/13 14:39) Other DIFFICULTY BREATHING/ PASSED OUT Medications to take at Discharge Calcium (Elemental) [Os-Efe 500] 1,000 mg PO DAILY 07/05/13 Amlodipine [Norvasc] 10 mg PO DAILY 03/29/20 Magnesium Oxide [Magox 400] 400 mg PO DAILY 03/29/20 Vitamin E 400 units PO DAILY 03/29/20 Primary Care Physician: Tacos Sutton DO [Primary Care Provider] - Within 2 Weeks Test Results: Test results from this visit will be discussed in further detail at your follow- up appointment, if applicable. Proposed Discharge Date: 03/30/20
--- NOTE | 2020-03-30 11:30 | DS.PCM_ITS ---
Discharge Date and Diagnosis - Problem List Patient Problems: Active and Suspected Problems (Last Reviewed 03/29/20 @ 19:[address] Ajay Durham MD) SARS pneumonia (Acute) COVID-19 (Acute) Syncope and collapse (Acute) MADI (acute kidney injury) (Acute) Date of Admission: 03/29/20 Date of Discharge: 03/30/20 - Primary Discharge Diagnosis Acute Problems: Active Problems (Last Reviewed 03/29/20 @ 19:[address] Ajay Durham MD) SARS pneumonia (Acute) COVID-19 (Acute) Syncope and collapse (Acute) MADI (acute kidney injury) (Acute) Hospital Course and Treatment Imaging Results: Clinical Impression(s) from Imaging Studies Brain CT 03/29/20 14:51 IMPRESSION: Chronic involutional changes of the brain. Electronically Signed: Berry Teague MD at 15:34 EDT Tel , Service support , Cervical Spine CT 03/29/20 14:51 IMPRESSION: Multilevel degenerative changes, as described above. Electronically Signed: Timothy Cruz, at 15:29 EDT , Service support , Chest X-Ray 03/29/20 15:17 IMPRESSION: Mild increased markings at the left lung base suggestive of either linear atelectasis and/or scarring. Electronically Signed: Timothy Cruz, at 15:30 EDT , Service support , Chest CTA 03/29/20 17:52 IMPRESSION: Limited study. No central or segmental pulmonary embolus. No thoracic aortic aneurysm or dissection. No pulmonary infiltrates or pleural effusions. Atherosclerosis and coronary artery disease. Small hiatal hernia. Gallstones. Electronically Signed: Ehsan Alba, at 18:37 EDT Tel , Service support , Operations: None Procedures: None Summary of Care Provided: The patient is a 69 year old M presents with a syncopal episode. Patient was on the toilet and passed out hitting his head. Patient not been feeling well for about a week was having nausea and not eating well. Patient presented she and underwent work-up, including a head CT, CTA of his chest and CT spine that were all unremarkable. Patient was positive for COVID-19. Orthostatics were checked and blood pressure did drop from sitting to standing, however, patient was otherwise asymptomatic. Creatinine is up from baseline around 2, baseline being around 1.5-1.6. Patient advised to hold off and his HCTZ and losartan for now but to continue with his amlodipine. Patient is here to follow-up with his primary care doctor in 2 weeks for further evaluation. It is felt that this episode was probably a vasovagal due to patient being on the commode but also being ill. Patient is otherwise feeling well and is comfortable returning home. Patient's also has similar symptoms. Instructions have been provided in regards to self-isolation for the COVID-19. [] From COVID-19 standpoint, patient is doing well and has no respiratory issues. Patient advised to be aware that is possible that his symptoms could get worse in the coming days and if he is having increasing shortness of breath to let his primary care doctor know or to come to the emergency room. Patient Problems: Active and Suspected Problems (Last Reviewed 03/29/20 @ 19:[address] Ajay Durham MD) SARS pneumonia (Acute) COVID-19 (Acute) Syncope and collapse (Acute) MADI (acute kidney injury) (Acute) - Physical Exam Vitals/I&O's: Vital Signs Temp Pulse Resp BP Pulse Ox 36.5 C L 87 18 150/88 H 96 03/30/20 09:25 03/30/20 10:22 03/30/20 09:25 03/30/20 10:22 03/30/20 09:25 Oxygen Delivery Method Room Air Weight: 128.4 kg Body Mass Index (BMI) 41.8 Orthostatic Vital Signs Start: 03/30/20 10:22 Freq: q24h Status: Active Protocol: Activity Type Activity Date Activity User E-Sign Co-Sign Detail Recorded Client Recorded Date Recorded By Document 03/30/20 10[id number] 03/30/20 10:24 03/30/20 10:22 Orthostatic Vitals Standing -Blood Pressure (90/60-120/80) 131/85 H -Extremity Use Right Arm -Pulse Rate (60-100) 101 H Sitting -Blood Pressure (90/60-120/80) 151/93 H -Extremity Use Right Arm -Pulse Rate (60-100) 93 Lying -Blood Pressure (90/60-120/80) 150/88 H -Extremity Use Right Arm -Pulse Rate (60-100) 87 Intake and Output for Last 24 Hours 03/28/20 03/29/20 03/30/20 23:59 23:59 23:59 Intake Total 740 / 740 1240 / 1240 Output Total 200 / 200 Balance 740 / 740 1040 / 1040 General: Alert, Cooperative, No apparent distress HEENT: Atraumatic, Normocephalic Oral: Moist Mucosa, No Gingival or Mucosal Lesions/ Ulcerations Neck: No Nodes, Thyroid Normal Size and Texture Lungs: Clear to auscultation, Normal air movement, No rhonchi, No wheeze, No rales Neurological: - - When patient was stood up, he was otherwise steady on his feet and did not sway. Laboratory Results 03/29/20 15:30: WBC 9.3, RBC 5.10, Hgb 14.9, Hct 45.4, MCV 89.0, MCH 29.2, MCHC 32.8, RDW Std Deviation 44.0 H, RDW Coeff of Ambreen 13.4, Plt Count 284, MPV 9.4, Immature Gran % (Auto) 0.200, Neut % (Auto) 82.3 H, Lymph % (Auto) 7.9 L, [place] % (Auto) 9.5, Eos % (Auto) 0.0, Baso % (Auto) 0.1, Absolute Neuts (auto) 7.7, Absolute Lymphs (auto) 0.74 L, Nucleated RBC % 0 03/29/20 15:30: Sodium 136, Potassium 3.8, Chloride 100, Carbon Dioxide 30.0, Anion Gap 6, BUN 26 H, Creatinine 2.03 H, Estim Creat Clear Calc 34.34, Est GFR (MDRD) Af Amer 42 L, Est GFR (MDRD) Non-Af 35 L, BUN/Creatinine Ratio 12.8, Glucose 118 H, Calcium 9.2, Troponin I < 0.015 03/29/20 15:30: Lactic Acid 1.1 03/29/20 16:00: COVID-19 (SCOTT) Detected 03/29/20 16:55: Urine Color Yellow, Urine Clarity Clear, Urine pH 6.5, Ur Specific [place] 1.010, Urine Protein 30 H, Urine Glucose (UA) Normal, Urine Ketones Negative, Urine Occult Blood 10 H, Urine Nitrite Negative, Urine Bilirubin Negative, Urine Urobilinogen Normal, Ur Leukocyte Esterase Negative, Urine RBC 0 SEEN, Urine WBC 0 SEEN, Ur Squamous Epith Cells 0 SEEN, Urine Bacteria 0 SEEN, Urine Mucus 0 SEEN Current Medications Acetaminophen (Acetaminophen 325 Mg Tablet) 650 mg PO Q6H PRN PRN PRN Reason: Pain Score 1-10/Temp > 100.7 F Amlodipine Besylate (Amlodipine 10 Mg Tablet) 10 mg PO DAILY [facility] Last Admin: 03/30/20 10:35 Dose: 10 mg Documented by: Calcium Carbonate (Calcium (Elemental) 500 Mg Tablet) 1,000 mg PO DAILY [facility] Last Admin: 03/30/20 10:34 Dose: 1,000 mg Documented by: Dexamethasone (Dexamethasone 4 Mg Tablet) 6 mg PO DAILY [facility] Last Admin: 03/30/20 10:34 Dose: 6 mg Documented by: Guaifenesin (Guaifenesin 1,200 Mg Tablet) 1,200 mg PO BID [facility] Last Admin: 03/30/20 10:33 Dose: 1,200 mg Documented by: Sodium Chloride () 1,000 mls @ 75 mls/hr IV .[id number] [facility] Last Admin: 03/30/20 10:36 Dose: 75 mls/hr Documented by: Labetalol HCl (Labetalol (Prefilled) 20 Mg/4 Ml) 10 mg IV Q6 PRN PRN Reason: SBP > 160 OR DBP > 120 Magnesium Chloride (Magnesium Chloride 64 Mg Delay Rel.Tablet) 128 mg PO DAILY [facility] Last Admin: 03/30/20 10:34 Dose: 128 mg Documented by: Melatonin (Melatonin 3 Mg Tablet) 3 mg PO QHS PRN PRN PRN Reason: INSOMNIA Sodium Chloride (0.9% Saline Lock 10 Ml Syringe) 10 - 40 ml IV UD PRN PRN Reason: SALINE FLUSH Vitamin E (Vitamin E 400 Units Capsule) 400 units PO DAILY [facility] Last Admin: 03/30/20 10:34 Dose: 400 units Documented by: Discharge Diet: No Restrictions Discharge Activity: Return to Normal Activity, - - get up slowly Call your doctor if you observe: Fever of 101 or Higher, Shortness of breath Home Medications: Medications to take at Discharge Calcium (Elemental) [Os-Efe 500] 1,000 mg PO DAILY 07/05/13 Amlodipine [Norvasc] 10 mg PO DAILY 03/29/20 Magnesium Oxide [Magox 400] 400 mg PO DAILY 03/29/20 Vitamin E 400 units PO DAILY 03/29/20 Primary Care Physician: Tacos Sutton DO [Primary Care Provider] - Within 2 Weeks Disposition: Home Minutes spent on discharge:: 32 Patient Condition:: Good Medical Necessity - Tobacco Use Smoking Status: Former smoker Tobacco Use: Cigarettes Meaningful Use Info Meaningful Use Diagnoses (Choose all that apply): None applicable Inpatient E&M: 65613 Disch Hosp
[2020-03-30 12:25] VITALS: BP 147/71; PULSE 80; RESP 18; TEMP 36.6; O2SAT 97
--- NOTE | 2020-04-02 16:12 | CASEMGMT ---
PAWEL AVILA COVID F/U Phone Call Discharge date: 03/30/2020 Call date: 04/02/2020 Call time: [id number] Admission dx: Dizziness, SARS COVID 19 w/ syncope Pt states 'i could be doing better' since he was discharged. Pt states he is tired and has been sleeping a lot. Pt speaks in full sentences in no distress at this time. Pt states no questions regarding discharge instructions/medications at this time. Pt states has not been symptomatic. Pt states BP was 133/80 this am and heart rate was 104 but pt did have a low grade fever still of 100. Pt states pulse ox has been running lower but pt states he was coughing a lot this am. Pt c/o no SOB at this time while at rest and states cough is now productive of yellow/green sputum and has alleviated some. Pt states has f/u phone call with Dr. Sutton tomorrow and plans to keep. Pt aware to continue to monitor vitals and notify Dr. Sutton during call, voices understanding. Pt voices no further questions/concerns/needs at this time. [place] PAWEL AVILA
== END 2020-03-30 13:22 | disposition home or self-care (01) | DRG 178 ==
LOC: ED 19:46 → PCU 20:03
PROVIDERS: Emergency Medicine; Admitting Provider Hospitalist; Emergency Provider Physician Assistant; PCP Family Medicine
DX: U07.1 COVID-19 (principal); S06.0X9A Concussion with loss of consciousness of unspecified duration, initial encounter; N17.9 Acute kidney failure, unspecified; Z68.41 Body mass index [BMI] 40.0-44.9, adult; I10 Essential (primary) hypertension; E66.01 Morbid (severe) obesity due to excess calories; W18.11XA Fall from or off toilet without subsequent striking against object, initial encounter; Y93.9 Activity, unspecified; Y92.9 Unspecified place or not applicable; Z79.899 Other long term (current) drug therapy; Z87.891 Personal history of nicotine dependence
CPT/HCPCS: 70450; 71045; 71275; 72125; 80048; 81001; 83605; 84484; 85025; 87635; 93005; 97162; 97166; 99251; 99285; J7030; J7040; Q9967; A4216; G0463; U0002

== ENCOUNTER → 2020-08-07 14:19 | Outpatient (CLI) | payer MEDICARE, OTHER, SELFPAY ==
[2020-03-29 20:55] VITALS: BMI 41.8
[2020-08-07 16:56] LABS: Absolute Lymphocyte Count 1.77 X10^3/uL (0.83-4.51); Absolute Neutrophil Count 6.7 X10^3/uL (2.0-7.7); Basophil# 0.08 X10^3/uL; Basophil% 0.8 % (0-1); Eosinophil# 0.31 X10^3/uL; Eosinophils% 3.2 % (0-5); Hematocrit 45.5 % (40-54); Hemoglobin 14.6 g/dL (13.0-16.5); Lymphocyte # 1.77 X10^3/ul (4.0); Lymphocyte % 18.3 % (19-41); Mean Corp Hgb Conc 32.1 g/dL (32-36); Mean Corpuscular Hgb 28.9 pg (27.0-32.0); Mean Corpuscular Volume 90.1 fL (80-94); Mean Platelet Vol. 9.4 fl (6.2-12.0); Monocyte# 0.84 X10^3/uL; Monocyte% 8.7 % (0-10); NRBC Flagged by Analyzer 0 % (0-5); Neutrophil # 6.65 X10^3/uL (2.7-7.7); Neutrophil % 68.8 % (47-70); Platelet Count 360 K/mm3 (150-450); RBC Distribution Width CV 13.4 % (11.6-14.6); Red Blood Count 5.05 M/mm3 (4.6-6.2); White Blood Count 9.7 K/mm3 (4.4-11.0)
[2020-08-07 17:36] LABS: ALB/GLOB Ratio 0.7 RATIO (0.9-2.4); AST(SGOT) 14 U/L (15-37); Alanine Aminotransfer ALT/SGPT 24 U/L (16-61); Albumin, Serum 3.3 g/dL (3.2-5.0); Alkaline Phosphatase 106 U/L (45-117); Anion Gap 8 (5-15); BUN 16 mg/dL (7-18); BUN/Creat Ratio 11.3 RATIO (10-20); CRP 8.41 mg/L (0.0-3.0); Chloride 103 mmol/L (98-107); Creatinine, Serum 1.41 mg/dL (0.70-1.30); EST Glomerular Filtration Rate 53 mL/min (>60); Est Glom Filt Rate - Afr Amer 64 mL/min (>60); Globulin 4.6 g/dL (2.2-4.2); Glucose 144 mg/dL (74-106); Lipase 106 U/L (73-393); Potassium 3.4 mmol/L (3.5-5.1); Protein, Total 7.9 g/dL (6.4-8.2); Sodium Level 139 mmol/L (136-145)
== END ==
PROVIDERS: PCP Family Medicine; Visit Provider Family Medicine
DX: R10.9 Unspecified abdominal pain (principal)
CPT/HCPCS: 36415; 80053; 83690; 85025; 86140

== ENCOUNTER 2020-08-12 11:14 | Emergency (ER) | payer MEDICARE, OTHER, SELFPAY ==
[2020-03-29 20:55] VITALS: BMI 41.8
[2020-08-12 11:14] VITALS: BP 183/93; PULSE 111; RESP 17; TEMP 36.2; O2SAT 96; BMI 41.3
--- NOTE | 2020-08-12 11:45 | CT_ITS ---
STUDY: CT ABDOMEN AND PELVIS WITH CONTRAST REASON FOR EXAM: Male, 70 years old. Abd pain for weeks RADIATION DOSAGE (If Supplied By Facility): CTDIvol = ( 23.75 ) mGy, DLP = ( 1649.54 ) mGycm TECHNIQUE: Transaxial images were obtained from the dome of the diaphragm to the symphysis pubis without oral contrast. IV 100mL Isovue-300 was administered. Sagittal and coronal images were reconstructed. Individualized dose optimization techniques were used for this CT. COMPARISON: None. FINDINGS: The visualized lung bases are unremarkable. The visualized portions of the heart are within normal limits. There is decreased attenuation of the liver consistent with steatosis. There are multiple gallstones. Normal spleen. Normal pancreas. Normal bilateral adrenal glands. Normal right kidney. Normal left kidney. Normal visualized stomach. Normal small intestine. Normal colon. The appendix is visualized and appears normal. Appendix best seen on coronal recon images 68 through 77 There is diffuse atherosclerotic calcification of the abdominal aorta, without a demonstrated aneurysm. Normal inferior vena cava. Normal retroperitoneum. Normal urinary bladder. There are prostatic calcifications. Normal abdominal wall. There are diffuse degenerative changes of the visualized lumbar spine, and pelvis. CT/Abdomen/Pelvis W IV Cont ONLY IMPRESSION: Fatty liver, no discrete lesion Cholelithiasis, no CT evidence of acute cholecystitis No free intraperitoneal fluid, air, or suspicious adenopathy Normal appendix visualized Diffuse atherosclerosis Electronically Signed: Jonathan Klein MD at 12:35 EDT , Service support ,
--- NOTE | 2020-08-12 11:47 | ED.DCSUM_ITS ---
- ER Visit Summary Date of Service: 08/12/20 Chief Complaint: Diffuse abdominal pain for weeks History of Present Illness: The patient is a 70 M history of hypertension, renal insufficiency and skin cancer. Patient states he has had abdominal pain for 2 to 3 weeks. Initially started the left lower quadrant and now is using. He complains of nausea and vomiting. 10 pound weight loss. Denies any dysuria. Denies any constipation nor diarrhea. No melena. Last bowel movement today. No fever or chills. No abdominal trauma. He is never had any abdominal surgeries. Physical Examination: Older male accompanied by his vital signs stable afebrile. H EENT exam unremarkable. Nontender. Lungs clear to auscultation. Heart regular rhythm rate about 110 no murmur. Abdomen soft. Diffusely tender. Left upper and lower quadrant. Epigastric region. No signs of obstruction. No pulsatile mass. No obvious hernia. No signs of trauma. Right lower quadrant is nontender. No peritoneal signs. Positive bowel sounds. Patient moving all 4 extremities. Neurovascular intact. No edema. Neurologically is awake and alert with no focal motor deficits. The Test Results: CBC normal white count of 7. Hemoglobin 14. Chemistries show mild renal insufficiency creatinine 1.5 he has been higher than that before. Normal gap. Liver enzymes normal. Lipase normal. UA normal. CAT scan abdomen pelvis with IV contrast shows cholelithiasis. Otherwise no acute abnormality. Normal appendix. This is read by the radiologist and reviewed by me. Exam unchanged at 1320. No peritoneal signs. Discussed with the patient and his . They stated been having symptoms for 2 to 3 weeks. Has had a 10 pound weight loss and they were hoping to see if at all possible he could be admitted to have this done. I will discuss with the surgeon [employer] manufacturing consultant. Emergency Department Course and Treatment: Patient treated with IV fluids and IV Zofran for nausea. Will have a CAT scan and labs. He did not want a thing right now for pain. Treatment Plan: I spoke to the general surgeon on-call Dr. Joseph Gold. He will see the patient tomorrow in his office at 9:45 AM and if appropriate patient do a cholecystectomy on him this week. Disposition: dc Impression: Acute abdominal pain Acute biliary colic secondary to cholelithiasis. This note was generated with [employer] dictation software. It may contain incorrect words, spelling, and punctuation that were not noted in review of the chart prior to signing ED Disposition - Plan for ED Patient: Referrals: Tacos Sutton DO [Primary Care Provider] -
[2020-08-12] MEDS: Ondansetron 4 MG/2 ML Vial IV (12:04)
[2020-08-12] MEDS: 0.9% Normal Saline 1,000 ML 1000 ML IV (12:04)
[2020-08-12 12:15] LABS: Bacteria 0 SEEN /hpf (None Seen); Mucous, Urine 0 SEEN /hpf (<or=2+); Squamous Epithelial Cells - UA 0 SEEN /hpf (0-5); White Blood Cells 0 SEEN /hpf (0-5)
[2020-08-12 12:22] LABS: Absolute Lymphocyte Count 1.37 X10^3/uL (0.83-4.51); Absolute Neutrophil Count 5.2 X10^3/uL (2.0-7.7); Basophil# 0.06 X10^3/uL; Basophil% 0.8 % (0-1); Color, Urine Yellow (Yellow); Eosinophil# 0.15 X10^3/uL; Glucose, Dipstick Normal (Normal); Hematocrit 46.6 % (40-54); Hemoglobin 14.9 g/dL (13.0-16.5); Ketone-Dipstick 5 mg/dl (Negative); Leukocyte Esterase-Dipstick Negative /ul (Negative); Lymphocyte # 1.37 X10^3/ul (4.0); Lymphocyte % 18.2 % (19-41); Mean Corpuscular Hgb 28.6 pg (27.0-32.0); Mean Corpuscular Volume 89.4 fL (80-94); Mean Platelet Vol. 9.2 fl (6.2-12.0); Monocyte# 0.68 X10^3/uL; Monocyte% 9.1 % (0-10); NRBC Flagged by Analyzer 0 % (0-5); Neutrophil # 5.23 X10^3/uL (2.7-7.7); Neutrophil % 69.6 % (47-70); Nitrite-Dipstick Negative (Negative); Occult Blood-Urine 10 /ul (Negative); Platelet Count 324 K/mm3 (150-450); Protein-Dipstick 30 mg/dl (Negative); RBC Distribution Width CV 13.2 % (11.6-14.6); RBC Distribution Width SD 43.2 fl (35.1-43.9); Red Blood Count 5.21 M/mm3 (4.6-6.2); Specific Gravity, Urine 1.025 (1.002-1.030); Urine Bilirubin Dipstick Negative (Negative); Urine Clarity Clear (Clear); Urine Urobilinogen Normal (Normal); White Blood Count 7.5 K/mm3 (4.4-11.0)
[2020-08-12 12:29] LABS: Red Blood Cells-Urine 0-5 SEEN /hpf (0-5)
[2020-08-12 12:39] LABS: AST(SGOT) 14 U/L (15-37); Alanine Aminotransfer ALT/SGPT 22 U/L (16-61); Albumin, Serum 3.2 g/dL (3.2-5.0); Alkaline Phosphatase 105 U/L (45-117); Anion Gap 6 (5-15); BUN 19 mg/dL (7-18); BUN/Creat Ratio 12.7 RATIO (10-20); Bilirubin, Direct 0.09 mg/dL (0.00-0.30); Calcium,Total 9.1 mg/dL (8.5-10.1); Chloride 103 mmol/L (98-107); EST Glomerular Filtration Rate 49 mL/min (>60); Est Glom Filt Rate - Afr Amer 59 mL/min (>60); Estimated Creatinine Clearance 45.82 ml/min; Globulin 4.7 g/dL (2.2-4.2); Glucose 158 mg/dL (74-106); Lipase 114 U/L (73-393); Potassium 3.7 mmol/L (3.5-5.1); Protein, Total 7.9 g/dL (6.4-8.2); Sodium Level 137 mmol/L (136-145)
--- NOTE | 2020-08-12 13:26 | DCINST.ED_ITS ---
ED Disposition - Plan for ED Patient: Disposition: Home or Assisted Living Instructions: ED Gallstones with Biliary Colic Referrals: Joseph Gold MD [STAFF PHYSICIAN] - 1 Day Additional Instructions: Dr. Joseph Gold's office tomorrow at 9:45 in the morning. He is going to evaluate you and if possible he will get you on the surgery schedule for Wednesday to have your gallbladder taken out. [place] diet. Tylenol for pain.
[2020-08-12 13:42] VITALS: BP 170/96; PULSE 87; RESP 16; TEMP 36.2; O2SAT 95
--- NOTE | 2020-08-12 13:44 | ED.RN ---
received approx 500 ml of fluids at dc
== END 2020-08-12 13:44 | disposition home or self-care (01) ==
PROVIDERS: Emergency Provider Emergency Medicine; PCP Family Medicine
DX: K80.70 Calculus of gallbladder and bile duct without cholecystitis without obstruction (principal); I10 Essential (primary) hypertension; N28.9 Disorder of kidney and ureter, unspecified; I25.10 Atherosclerotic heart disease of native coronary artery without angina pectoris; Z85.828 Personal history of other malignant neoplasm of skin; Z79.899 Other long term (current) drug therapy
CPT/HCPCS: 74177; 80048; 80076; 81001; 83690; 85025; 96361; 96374; 99284; J7030; Q9967; A4216; J2405

== ENCOUNTER 2020-08-30 06:40 | Day surgery (SDC) | payer MEDICARE, OTHER, SELFPAY ==
[2020-08-13 09:55] VITALS: BMI 42.7
[2020-08-30] VITALS (8 sets, daily range): BP systolic 102–161; BP diastolic 68–83; PULSE 84–94; RESP 18–20; TEMP 36.4–36.9; O2SAT 93–95; BMI 41.6
[2020-08-30] MEDS: Lactated Ringers 1,000 ML 100 ML IV (07:33)
--- NOTE | 2020-08-30 07:56 | PCM.HP.BLA ---
Problem List (1) Epigastric pain Status: Acute (2) Lower abdominal pain Status: Acute History and Physical Date of Admission: 08/30/20 Intake Vital Signs 08/13/20 Height 5 ft 9 in 08/13/20 Weight: 289 lb 4 oz 08/13/20 BMI 42.7 08/13/20 BP 173/93 H 08/13/20 Blood Pressure Location Rt brachial 08/13/20 Position Sitting 08/13/20 Respiration 18 08/13/20 Pulse 105 H 08/13/20 Pulse Source NIBP 08/13/20 Temp 97.7 F L 08/13/20 Temp Source Temporal 08/13/20 Pulse Oximetry (%) 94 08/13/20 Oxygen Delivery Method room air Intake Visit Reasons: Gallstones Chief Complaint: gallstones Billing And Accounting Staff Assistant Required: No Is patient in pain?: No Allergies Penicillins Adverse Reaction (Verified 08/13/20 09:57) Other Medications Calcium (Elemental) [Os-Efe 500] 1,000 mg PO DAILY 07/05/13 [History Confirmed 08/13/20] Amlodipine [Norvasc] 10 mg PO DAILY 03/29/20 [History Confirmed 08/13/20] Magnesium Oxide [Magox 400] 400 mg PO DAILY 03/29/20 [History Confirmed 08/13/20] Vitamin E 400 units PO DAILY 03/29/20 [History Confirmed 08/13/20] omeprazole 40 mg capsule,delayed release 40 mg PO DAILY #30 cap 08/13/20 [Rx Confirmed 08/13/20] [facility] Medical History (Updated 08/13/20 @ 16:[address] Joseph Gold MD) Gallstones (Acute) Melanoma in situ (Acute) Hypertension (Chronic) Surgical History (Updated 08/13/20 @ 09:53 by Yanelis Zelaya) History of colonoscopy (Acute) History of foot surgery (Acute) History of left-sided carotid endarterectomy (Acute) History of total left knee replacement (Acute) Family History (Updated 08/13/20 @ 09:55 by Yanelis Zelaya) Father Heart disease Mother Heart disease Brother Heart disease Social History (Updated 08/13/20 @ 16:[address] Joseph Gold MD) Smoking Status: Former smoker HPI HPI HPI: EDIL DONALDSON, is a 70 M who presents to the office today for HPI HPI Surgical H&P: Yes HPI: EDIL DONALDSON, is a 70 M who presents to the office today for abdominal pain. The patient reports has been having abdominal pain which have been very diffuse. He has pain in his lower abdomen and his upper abdomen. He says is been going on for about a month. The patient reports pain with eating as well as vomiting. His pain does not localize anywhere and is not localized to the right upper quadrant. Patient is not experiencing any diarrhea. He reports his last colonoscopy was in 2009 and was normal. ROS General General: No weight change, appetite, fatigue, colon cancer, breast cancer or weakness HEENT HEENT: No difficulty swallowing, eye injury, eye surgery, swollen glands or hoarseness Endo Endocrine: No thyroid disease, diabetes mellitus, thyroid cancer, Hair loss, heat intolerance or cold intolerance Musc Musculoskeletal: No back problems, arthritis, rheumatoid arthritis, gout or joint pain Cardio Cardiovascular: Yes high blood pressure; no murmur, pacemaker, heart disease, atrial fibrillation, heart attack, heart stent, palpitations, shortness of breat with exertion or chest pain Psych Psychiatric: No depression, anxiety or hearing voices Resp Respiratory: No shortness of breath, No sleep apnea, No cough, No COPD, No asthma, No emphysema, No wheezing Gastro Gastrointestinal: Yes abdominal pain, Yes nausea or vomiting, No diarrhea, No constipation, No blood in stool, No acid reflux, No hemorrhoids, No ulcers, Yes gallbladder problem, No black,tarry stools Gino Hematologic: No blood thinners, No blood disorders, No bleeding, No anemia, No blood clots Neuro Neurologic: No weakness Exam Const General: cooperative Orientation: alert, oriented x3 Resp Effort & Inspection: normal respiratory effort Auscultation: clear to auscultation bilaterally Cardio Rate: regular rate Rhythm: regular rhythm Heart Sounds: no murmurs GI Inspection: non-distended Palpation: soft, nontender Assessment & Plan Problems 1. Epigastric pain R10.13 2. Lower abdominal pain R10.30 Plan The patient is having abdominal pain which is diffuse. He is also having vomiting occasionally but his pain does not suggestive of cholecystitis. The patient reports that his pain is diffuse and is in his lower abdomen as well. I do not believe a cholecystectomy would benefit him. I would recommend starting with EGD and colonoscopy. EGD would allow me to ensure he is not having any gastritis and I have asked him to start a PPI and Carafate as well. The patient is overdue for colonoscopy his last one was 11 years ago. The patient needs a colonoscopy as well this will clarify if any of his lower abdominal pain is due to his colon and will also serve as a screening colonoscopy. I explained endoscopy in detail to the patient. I explained the risks including but not limited to stroke or heart attack with anesthesia, perforation of the GI tract, bleeding, infection. I explained that any of these could necessitate further emergency surgery. The patient understands and all questions were answered sufficiently. The patient wishes to proceed with procedure. Joseph Gold MD Pager: [facility] [address] [place] [address], [address] [place] [address] Office: I have re-examined the patient. There are no clinical changes since date of exam.
--- NOTE | 2020-08-30 08:00 | EGD_PTH ---
PATIENT: EDIL DONALDSON LOC: EN U#:[id number] AGE/SX: 70/M ROOM: RE08/30/[address]: Dr. Joseph Gold MD : 1950 BED: DIS: 08/30/2020 SPEC #: [id number] RECD: 08/30/20 12:11 STATUS: MARIO MATTEO #: [id number] MINE: 08/30/20 08:[address]: Joseph Gold DEPT: SURGICAL PATHOLOGY RECD BY: Aida Whitmore ENTERED: 08/30/20 12:33 SP TYPE: EGD BIOPSY OT DR: Dr. Tacos Sutton, DO Tissues: A - Gastric mucous membrane B - Gastric mucous membrane Procedures: Surgery Specimen Level IV HEADER OPERATION: Colonoscopy, EGD ([facility] [place]) PRE-OP DIAGNOSIS: Epigastric pain, lower abdominal pain TISSUE SUBMITTED: A - Antrum biopsy and H. pylori and path, B - Gastric body MICROSCOPIC DIAGNOSIS A. Antrum biopsy: Mild gastritis. See microscopic description and comment. B. Gastric body, biopsy: Minimal gastritis. See microscopic description. SJ:donya 09/02/2020 COMMENT A. The results of immunohistochemistry for Helicobacter pylori will be reported separately ([id number]). MICROSCOPIC DESCRIPTION Slides are reviewed. A. The specimen shows fragments of gastric mucosa with chronic inflammatory cell infiltrates in the lamina propria consisting of lymphocytes and plasma cells, consistent with mild chronic gastritis. A few lymphoid aggregates are noted, favor benign. B. The specimen shows fragments of gastric mucosa with chronic inflammatory cell infiltrates in the lamina propria consisting of lymphocytes and plasma cells, consistent with minimal chronic gastritis. GROSS DESCRIPTION A - Received in fixative is one container labeled with the patient's name and designated antrum biopsy. The specimen consists of multiple irregular fragments of light gupta soft tissue that in aggregate measure 0.5 x 0.3 x 0.1 cm. The specimen is totally submitted in one cassette. B - Received in fixative is one container labeled with the patient's name and designated gastric body. The specimen consists of multiple irregular fragments of light gupta soft tissue that in aggregate measure 0.6 x 0.5 x 0.1 cm. The specimen is totally submitted in one cassette. / ISIDRO:donya 08/30/20 TC:3 CPT: 99061 x2
--- NOTE | 2020-08-30 08:00 | IMM_PTH ---
PATIENT: EDIL DONALDSON LOC: EN U#:[id number] AGE/SX: 70/M ROOM: RE08/30/[address]: Dr. Joseph Gold MD : 1950 BED: DIS: 08/30/2020 SPEC #: [id number] RECD: 08/30/20 12:57 STATUS: MARIO RECarolina #: [id number] MINE: 08/30/20 08:[address]: Joseph Gold DEPT: IMMUNOHISTOCHEMISTRY RECD BY: Hellen Rich ENTERED: 08/30/20 12:57 SP TYPE: IMMUNO OTHR DR: Dr. Tacos Sutton, DO Tissues: A - Stomach, NOS Procedures: H Pylori (initial) PHYSICIAN & INSTITUTION [place] [address] SPECIMEN INFORMATION: Tissue Source: Colonoscopy, EGD ([facility] [place] Clinical Info: Epigastric pain, lower abdominal pain Specimen Number: [id number] CPT code: 70455 METHODOLOGY: Deparaffinized sections of prefer/formalin-fixed tissue or PAP/DQ stained slides are incubated with monoclonal/polyclonal antibodies/oligonucleotide probes. Localization is made via biotin free immunoperoxidase method. Appropriate controls are performed and reacted as expected. Results on target cell population are indicated in the following table: RESULTS: ANTIBODY / CLONE RESULT Block A H Pylori (polyclonal) negative These tests were developed and their performance characteristics determined by [facility]. They may not have been cleared or approved by the U.S. Food and Drug Administration. The FDA has determined that such clearance or approval is not necessary. INTERPRETATION: A. Antrum biopsy: Negative for Helicobacter pylori organisms. SJ:donya 09/02/2020
--- NOTE | 2020-08-30 08:35 | OP.CCLET_ITS ---
08/30/2020 Tacos Sutton [address] [place] [address] Re : Upper GI endoscopy procedure for Bethel Zhu Dear Dr. Sutton This procedure was performed on Sunday, August 30, 2020. My impressions and recommendations are as follows: Impressions : - Normal esophagus. - Normal examined duodenum. - Gastritis. Biopsied. Recommendations : - Await pathology results. - Return to my office in 4 weeks. - Discharge patient to home. - Resume previous diet. - Continue present medications. My findings are described in the full procedure note, which is enclosed. If I can be of further assistance, please feel free to contact me at Doctor phone number(s): , Work: . Sincerely, Joseph Gold MD 08/30/2020 8:34:57 AM This report has been signed electronically.
--- NOTE | 2020-08-30 08:35 | OP.EGD_ITS ---
Patient Name: Bethel Zhu Procedure Date: 08/30/2020 7:59 AM Date of : 1950 Age: 70 Procedure: Upper GI endoscopy Indications: Epigastric abdominal pain Providers: Joseph Gold MD Referring MD: Tacos Sutton Medicines: Monitored Anesthesia Care Patient Profile: This is a 70 year old male. Refer to note in patient chart for documentation of history and physical. Complications: No immediate complications. Estimated blood loss: Minimal. Procedure: Pre-Anesthesia Assessment: - Prior to the procedure, a History and Physical was performed, and patient medications and allergies were reviewed. The patient's tolerance of previous anesthesia was also reviewed. The risks and benefits of the procedure and the sedation options and risks were discussed with the patient. All questions were answered, and informed consent was obtained. Prior Anticoagulants: The patient has taken no previous anticoagulant or antiplatelet agents. After reviewing the risks and benefits, the patient was deemed in satisfactory condition to undergo the procedure. After obtaining informed consent, the endoscope was passed under direct vision. Throughout the procedure, the patient's blood pressure, pulse, and oxygen saturations were monitored continuously. The gastroscope was introduced through the mouth, and advanced to the second part of duodenum. The upper GI endoscopy was accomplished without difficulty. The patient tolerated the procedure well. Scope In: 8:10:10 AM Scope Out: 8:13:50 AM Total Procedure Duration Time 0 hours 3 minutes 40 seconds Findings: The esophagus was normal. The examined duodenum was normal. Diffuse moderate inflammation characterized by erythema and friability was found in the stomach. Biopsies were taken with a cold forceps for Helicobacter pylori testing. Impression: - Normal esophagus. - Normal examined duodenum. - Gastritis. Biopsied. Recommendation: - Await pathology results. - Return to my office in 4 weeks. - Discharge patient to home. - Resume previous diet. - Continue present medications. Procedure Code(s): --- Professional --- 90728, Esophagogastroduodenoscopy, flexible, transoral; with biopsy, single or multiple Diagnosis Code(s): --- Professional --- K29.70, Gastritis, unspecified, without bleeding R10.13, Epigastric pain CPT copyright 2017 [employer]. All rights reserved. The codes documented in this report are preliminary and upon pipe smoker machine operator review may be revised to meet current compliance requirements. Joseph Gold MD 08/30/2020 8:34:57 AM This report has been signed electronically. Number of Addenda: 0 Note Initiated On: 08/30/2020 7:59 AM
--- NOTE | 2020-08-30 08:39 | OP.CCLET_ITS ---
08/30/2020 Tacos Sutton [address] [place] [address] Re : Colonoscopy procedure for Bethel Zhu Dear Dr. Sutton This procedure was performed on Sunday, August 30, 2020. My impressions and recommendations are as follows: Impressions : - The entire examined colon is normal on direct and retroflexion views. - Stricture in the sigmoid colon. - The examination was otherwise normal. - No specimens collected. Recommendations : - Discharge patient to home. - Resume previous diet. - Continue present medications. - Repeat colonoscopy is not recommended due to current age (66 years or older) for screening purposes. My findings are described in the full procedure note, which is enclosed. If I can be of further assistance, please feel free to contact me at Doctor phone number(s): , Work: . Sincerely, Joseph Gold MD 08/30/2020 8:39:04 AM This report has been signed electronically.
--- NOTE | 2020-08-30 08:39 | OP.COLON_ITS ---
Patient Name: Bethel Zhu Procedure Date: 08/30/2020 8:15 AM Date of : 1950 Age: 70 Procedure: Colonoscopy Indications: Generalized abdominal pain Providers: Joseph Gold MD Referring MD: Tacos Sutton Medicines: Monitored Anesthesia Care Patient Profile: This is a 70 year old male. Refer to note in patient chart for documentation of history and physical. Last Colonoscopy: 10 years ago. Complications: No immediate complications. Estimated blood loss: Minimal. Procedure: Pre-Anesthesia Assessment: - Prior to the procedure, a History and Physical was performed, and patient medications and allergies were reviewed. The patient's tolerance of previous anesthesia was also reviewed. The risks and benefits of the procedure and the sedation options and risks were discussed with the patient. All questions were answered, and informed consent was obtained. Prior Anticoagulants: The patient has taken no previous anticoagulant or antiplatelet agents. After reviewing the risks and benefits, the patient was deemed in satisfactory condition to undergo the procedure. After I obtained informed consent, the scope was passed under direct vision. Throughout the procedure, the patient's blood pressure, pulse, and oxygen saturations were monitored continuously. The colonoscope was introduced through the anus and advanced to the cecum, identified by appendiceal orifice and ileocecal valve. The colonoscopy was performed without difficulty. The patient tolerated the procedure well. The quality of the bowel preparation was good. Scope In: 8:15:53 AM Scope Withdrawal Time 0 hours 6 minutes 24 seconds Scope Out: 8:26:09 AM Total Procedure Duration Time 0 hours 10 minutes 16 seconds Findings: The entire examined colon appeared normal on direct and retroflexion views. A benign-appearing, intrinsic mild stenosis was found in the sigmoid colon and was traversed. The exam was otherwise without abnormality. Impression: - The entire examined colon is normal on direct and retroflexion views. - Stricture in the sigmoid colon. - The examination was otherwise normal. - No specimens collected. Recommendation: - Discharge patient to home. - Resume previous diet. - Continue present medications. - Repeat colonoscopy is not recommended due to current age (66 years or older) for screening purposes. Procedure Code(s): --- Professional --- 93824, Colonoscopy, flexible; diagnostic, including collection of specimen(s) by brushing or washing, when performed (separate procedure) Diagnosis Code(s): --- Professional --- K56.699, Other intestinal obstruction unspecified as to partial versus complete obstruction R10.84, Generalized abdominal pain CPT copyright 2017 [employer]. All rights reserved. The codes documented in this report are preliminary and upon behavioral intervention specialist review may be revised to meet current compliance requirements. Joseph Gold MD 08/30/2020 8:39:04 AM This report has been signed electronically. Number of Addenda: 0 Note Initiated On: 08/30/2020 8:15 AM
== END 2020-08-30 09:22 | disposition home or self-care (01) ==
LOC: EN 06:40 → AC 06:40
PROVIDERS: PCP Family Medicine; Referring Provider Family Medicine; Visit Provider Surgery
PROC: 0DJD8ZZ Inspection of Lower Intestinal Tract, Via Natural or Artificial Opening Endoscopic (ICD-10-PCS; CPT 45378; principal; 2020-08-30 07:55)
DX: K29.70 Gastritis, unspecified, without bleeding (principal); K56.699 Other intestinal obstruction unspecified as to partial versus complete obstruction; Z20.828 Contact with and (suspected) exposure to other viral communicable diseases; I10 Essential (primary) hypertension; K21.9 Gastro-esophageal reflux disease without esophagitis; Z87.19 Personal history of other diseases of the digestive system; Z86.73 Personal history of transient ischemic attack (TIA), and cerebral infarction without residual deficits; Z85.828 Personal history of other malignant neoplasm of skin; Z79.899 Other long term (current) drug therapy; Z87.891 Personal history of nicotine dependence
CPT/HCPCS: 43239; 45378; 87426; 88305; 88342; C9803; J7120; J2405

== ENCOUNTER 2020-09-18 11:12 | Day surgery (SDC) | payer MEDICARE, OTHER, SELFPAY ==
[2020-09-11 13:59] VITALS: BMI 41.5
--- NOTE | 2020-09-17 11:54 | EKG12_ITS ---
Test Reason : PRE OP Blood Pressure : / mmHG Vent. Rate : 104 BPM Atrial Rate : 104 BPM P-R Int : 156 ms QRS Dur : 080 ms QT Int : 360 ms P-R-T Axes : 052 000 006 degrees QTc Int : 473 ms Sinus tachycardia Otherwise normal ECG Confirmed by JERALD RODRIGUEZ, SENG ([id number]), purchase request editor TAMIKA GOODMAN ([id number]) on 09/18/2020 9:58:02 AM Referred By: Joseph Gold Confirmed By:SENG MARQUES MD
[2020-09-17 13:42] LABS: Partial Thromboplast Time 27.5 Seconds (24.1-36.2)
[2020-09-18] VITALS (11 sets, daily range): BP systolic 148–181; BP diastolic 61–89; PULSE 85–98; RESP 16–20; TEMP 36.3–37.2; O2SAT 92–98; BMI 41.1
--- NOTE | 2020-09-18 | GALL_PTH ---
PATIENT: EDIL DONALDSON LOC: [facility] [place] U#:[id number] AGE/SX: 70/M ROOM: RE09/18/[address]: Dr. Joseph Gold MD : 1950 BED: DIS: 09/18/2020 SPEC #: [id number] RECD: 09/18/20 15:21 STATUS: MARIO RECarolina #: [id number] MINE: 09/18/20 00:[address]: Joseph Gold DEPT: SURGICAL PATHOLOGY RECD BY: Howie Li ENTERED: 09/19/20 07:43 SP TYPE: ARACELIS SALGADO DR: Dr. Tcaos Sutton DO Tissues: Gallbladder, NOS Procedures: Surgery Specimen Level III HEADER OPERATION: Laparoscopic cholecystectomy with IOC PRE-OP DIAGNOSIS: Cholelithiasis TISSUE SUBMITTED: Gallbladder MICROSCOPIC DIAGNOSIS Gallbladder, cholecystectomy: Chronic cholecystitis and cholelithiasis. AM:donya 09/20/2020 MICROSCOPIC DESCRIPTION Slides are reviewed. GROSS DESCRIPTION Received is one container labeled with the patient's name and designated gallbladder. The specimen consists of a gallbladder measuring 8 cm in length and up to 4 cm in diameter. The external surface is pink-gupta, smooth and glistening for the most part. Focally it is granular, hemorrhagic and contains cautery artifact. The gallbladder contains green-yellow mucoid bile and multiple greenish-yellow stones measuring in aggregate 2.5 x 1.5 x 1 cm and 0.2 to 1 cm in greatest dimension. The mucosa is bile-stained and without any mass lesions. The gallbladder wall measures up to 0.5 cm in thickness. A focal area shows increased amount of subserosal fat. Entry Level Accounting Clerk sections from the gallbladder and the cystic duct are submitted in one cassette. / SJ:donya 09/19/20 TC:3 CPT: 78090
[2020-09-18] MEDS: Lactated Ringers 1,000 ML 100 ML IV (12:12)
--- NOTE | 2020-09-18 12:36 | HP.PCM_ITS ---
Problem List (1) Cholelithiasis Status: Acute Qualifiers: Cholelithiasis location: gallbladder Cholecystitis presence: without cholecystitis Biliary obstruction: without biliary obstruction Qualified Code(s): K80.20 - Calculus of gallbladder without cholecystitis without obstruction (2) Epigastric pain Status: Acute History and Physical Date of Admission: 09/18/20 Intake Vital Signs 09/11/20 Height 5 ft 9 in 09/11/20 Weight: 281 lb 09/11/20 BMI 41.5 09/11/20 Respiration 16 Intake Visit Reasons: DISCUSS CHOLECYSTECTOMY Chief Complaint: gallstones Dining Room Helper Required: No Is patient in pain?: Yes (abdomen) Allergies Penicillins Adverse Reaction (Verified 09/11/20 13:59) Other Medications Calcium (Elemental) [Os-Efe 500] 1,000 mg PO DAILY 07/05/13 [History Confirmed 09/11/20] Amlodipine [Norvasc] 10 mg PO DAILY 03/29/20 [History Confirmed 09/11/20] Magnesium Oxide [Magox 400] 400 mg PO DAILY 03/29/20 [History Confirmed 09/11/20] Vitamin E 400 units PO DAILY 03/29/20 [History Confirmed 09/11/20] Sucralfate 1 gm PO BID 08/26/20 [History Confirmed 09/11/20] omeprazole 40 mg capsule,delayed release See Rx Instructions .ROUTE .COMPLEX #30 cap 09/09/20 [Rx Confirmed 09/11/20] [facility] Medical History (Updated 08/30/20 @ 07:[address] Joseph Gold MD) Gallstones (Acute) Melanoma in situ (Acute) Hypertension (Chronic) Surgical History (Updated 08/30/20 @ 07:[address] Joseph Gold MD) History of colonoscopy (Acute) History of foot surgery (Acute) History of left-sided carotid endarterectomy (Acute) History of total left knee replacement (Acute) Family History (Updated 08/13/20 @ 09:55 by Yanelis Zelaya) Father Heart disease Mother Heart disease Brother Heart disease Social History (Updated 09/11/20 @ 15:[address] Joseph Gold MD) Smoking Status: Former smoker HPI HPI HPI: EDIL DONALDSON, is a 70 M who presents to the office today for HPI HPI Surgical H&P: Yes HPI: EDIL DONALDSON, is a 70 M who presents to the office today for right abdominal pain. The patient reports that he is still having ongoing right upper quadrant pain which radiates to the back. He says this especially happens postprandial. The patient has been on a PPI and Carafate now and has not had any relief. I did perform an EGD and colonoscopy on him which were normal. The patient does not have any vomiting. The pain radiates to the back. ROS General General: No weight change, appetite, fatigue, colon cancer, breast cancer or we akness HEENT HEENT: No difficulty swallowing, eye injury, eye surgery, swollen glands or hoarseness Endo Endocrine: No thyroid disease, diabetes mellitus, thyroid cancer, Hair loss, heat intolerance or cold intolerance Musc Musculoskeletal: No back problems, arthritis, rheumatoid arthritis, gout or joint pain Cardio Cardiovascular: Yes high blood pressure; no murmur, pacemaker, heart disease, atrial fibrillation, heart attack, heart stent, palpitations, shortness of breat with exertion or chest pain Psych Psychiatric: No depression, anxiety or hearing voices Resp Respiratory: No shortness of breath, No sleep apnea, No cough, No COPD, No asthm a, No emphysema, No wheezing Gastro Gastrointestinal: Yes abdominal pain, Yes nausea or vomiting, No diarrhea, No constipation, No blood in stool, No acid reflux, No hemorrhoids, No ulcers, Yes gallbladder problem, No black,tarry stools Gino Hematologic: No blood thinners, No blood disorders, No bleeding, No anemia, No blood clots Neuro Neurologic: No weakness Exam Const General: cooperative Orientation: alert, oriented x3 Resp Effort & Inspection: normal respiratory effort Auscultation: clear to auscultation bilaterally Cardio Rate: regular rate Rhythm: regular rhythm Heart Sounds: no murmurs GI Inspection: non-distended Palpation: soft, nontender Assessment & Plan Problems 1. Calculus of gallbladder without cholecystitis without obstruction K80.20 2. Biliary colic K80.50 Plan The patient has right upper quadrant pain suggestive of biliary colic. The patient has had a trial of PPI and Carafate with no improvement. I also perf ormed an EGD and colonoscopy. The patient does have gallstones on CT scan and I recommend laparoscopic cholecystectomy. discussed the procedure in detail with the patient. I discussed the risks, benefits, and alternatives of the procedure. I discussed the risks including but not limited to bleeding, infection, injury to surrounding organs such as the liver, bile duct, bowels. I did discuss the possibility of having to convert to an open procedure as well as the possibility that if any injuries occurred this may necessitate further surgery at a tertiary care center. Joseph Gold MD Pager: [facility] [address] [place] [address], [address] [place] [address] Office: I have seen and reexamined the patient and there are no changes.
--- NOTE | 2020-09-18 13:25 | RAD_ITS ---
STUDY: INTRAOPERATIVE GLANDULAR. REASON FOR EXAM: Male, 70 years old. PAIN FLUOROSCOPY TIME (if supplied): ( 12 seconds ) minutes/seconds. A single loop of 66 images was submitted. TECHNIQUE: And intrahepatic glandular was performed by the surgeon. Imaging was submitted. COMPARISON: None. FINDINGS: The intra and extrahepatic biliary ducts are unremarkable. No intraluminal filling defect is seen. There is free flow of contrast into the duodenum. RAD/Cholangiogram/ O R,Initial IMPRESSION: Unremarkable intraoperative cholangiogram. Electronically Signed: Timothy Cruz MD at 15:30 EDT , Service support ,
[2020-09-18] MEDS: Bupiv/Epi 0.25% 30 ML Vial (14:00)
--- NOTE | 2020-09-18 14:11 | OP.PCM_ITS ---
Problem List (1) Cholelithiasis Status: Acute Qualifiers: Cholelithiasis location: gallbladder Cholecystitis presence: without cholecystitis Biliary obstruction: without biliary obstruction Qualified Code(s): K80.20 - Calculus of gallbladder without cholecystitis without obstruction (2) Epigastric pain Status: Acute Report of Operation Date of Procedure: 09/18/20 Pre-Operative Diagnosis: Cholelithiasis and biliary colic Post-Operative Diagnosis: Same Surgery/Procedure Performed:: Laparoscopic cholecystectomy with cholangiogram Specimen's removed: Gallbladder and contents Description of Procedure: After obtaining informed consent patient was brought back to the operating room. General anesthesia was induced. The abdomen was prepped and draped in usual sterile fashion. A small midline incision was made superior to the umbilicus. Using a 5 mm port a Visiport technique was used to enter the abdomen. The abdomen was inflated to 15 mmHg. Next a camera was reintroduced into the abdomen and the abdomen was inspected. There were no injuries from entry. Next under direct visualization three 5-mm ports were placed one subxiphoid and 2 subcostal. The umbilical port was upsized to a 12 mm port. Next the gallbladder was elevated and retracted toward the right shoulder. The peritoneum was stripped from the gallbladder. There were adhesions from the omentum to the gallbladder wall. The infundibulum was located and retracted laterally. Next the triangle of Calot was dissected and the cystic duct and cystic artery were identified. Cholangiograms were performed. The Perez clamp was used to clamp across the infundibulum and the catheter needle was inserted into the gallbladder. Under fluoroscopy contrast was instilled into the gallbladder and the common duct, cystic duct as well as proximal hepatic ducts were identified. There was good filling of the duodenum. There were no filling defects noted in the common bile duct. The clamp was removed as well as the needle and the infundibulum was grasped once more. Three hemolock clips were placed across the cystic duct. The cystic duct was then divided leaving 2 clips on the stump. The cystic artery was clipped and divided in the same fashion. The hook cautery was then used to take the gallbladder off of the gallbladder bed. Hemostasis was obtained. Gallbladder fossa was irrigated and no active bleeding or bile leakage was noted. Next the camera was introduced in the subxiphoid port. An Endopouch bag was placed through the umbilical port and the gallbladder was placed into it. The gallbladder was then removed through the umbilical incision. The camera was then reinserted through the umbilical port. The gallbladder fossa was inspected once more and noted to be hemostatic with no leaking bile. The abdomen was suctioned dry. The 5 mm ports were removed under direct visualization. The umbilical port was then removed and the air was removed from the abdomen. Next using an 0 Vicryl suture the umbilical fascia was closed in a [id number] fashion. The umbilical port site was irrigated local anesthetic was administered to all the incisions. All the incisions were closed with interrupted subcuticular 4-0 Monocryl sutures followed by Steri- Strips and dressings. The patient was awoken and taken to PACU in stable condition. - Admit VTE Documentation VTE Mechan Device Prophylaxis: SCD's
--- NOTE | 2020-09-18 14:16 | PCM.DC.GB ---
Discharge Diet: Light diet - advance as tolerated Discharge Activity: Return to Normal Activity, May Not Drive - for 2-3 days or while taking narcotic pain medicataions., - - Do not drive, work heavy equipment or sign legal documents for 24 hours. May shower in (days): 1 - with the bandage in place. Lifting Restrictions: 20 lbs for 3 weeks Additional Activity Instructions:: Pain medication may cause nausea. You should typically eat light foods as you take your pain medications. Pain medication may also cause constipation. If this is a problem for you, please discuss with your doctor. Call your doctor if your incision/area has: Continuous Slow Oozing, Sudden Increased Bleeding, Increased Pain/ Swelling, Increased Redness, Foul Smelling Discharge, Fever of 101 or Higher Call your doctor if you observe: Fever of 101 or Higher Suture Line Care: Avoid Pulling/Pushing, Avoid Pinching/Bending Additional Dressing/Incision Instructions:: Leave operative bandaids on for 2 days. When you remove dressing, leave Steri-Strips on until your follow-up appointment, or until the Steri-Strips fall off on their own. Allergies/Adverse Reactions: Allergies Penicillins Adverse Reaction (Verified 09/16/20 11:13) Other PASSED OUT Medications to take at Discharge Calcium (Elemental) [Os-Efe 500] 1,000 mg PO DAILY 07/05/13 Amlodipine [Norvasc] 10 mg PO DAILY 03/29/20 Magnesium Oxide [Magox 400] 400 mg PO DAILY 03/29/20 Vitamin E 400 units PO DAILY 03/29/20 Sucralfate 1 gm PO BID 08/26/20 omeprazole 40 mg capsule,delayed release See Rx Instructions .ROUTE .COMPLEX #30 cap 09/09/20 Acetaminophen/Codeine #3 [Tylenol#3] 1 - 2 tablet PO Q4H PRN PRN 5 Days #20 tablet 09/18/20 The following prescriptions were given: Acetaminophen/Codeine #3 [Tylenol#3] 1 - 2 tablet PO Q4H PRN PRN 5 Days #20 tablet PRN Reason: Pain Score 4-10 Transmission Status: Sent to [facility] Primary Care Physician: Tacos Sutton DO [Primary Care Provider] - Test Results: Test results from this visit will be discussed in further detail at your follow-up appointment, if applicable. Please Follow Up With: Joseph Gold MD When: Please call to schedule 2 week follow up appointment. [phone]
== END 2020-09-18 17:59 | disposition home or self-care (01) ==
LOC: SDC 11:13 → AC 11:15
PROVIDERS: Anesthesiology; PCP Family Medicine; Referring Provider Surgery; Visit Provider Surgery
PROC: (CPT 47610; principal; 2020-09-18 12:45)
DX: K80.64 Calculus of gallbladder and bile duct with chronic cholecystitis without obstruction (principal); Z20.822 Contact with and (suspected) exposure to COVID-19; I10 Essential (primary) hypertension; K21.9 Gastro-esophageal reflux disease without esophagitis; Z86.73 Personal history of transient ischemic attack (TIA), and cerebral infarction without residual deficits; Z79.899 Other long term (current) drug therapy; Z87.891 Personal history of nicotine dependence
CPT/HCPCS: 47563; 36415; 74300; 76000; 85610; 85730; 87426; 88304; 93005; C9803; J7120; J2405

== ENCOUNTER → 2020-11-06 11:14 | Outpatient (CLI) | payer MEDICARE, OTHER, SELFPAY ==
[2020-09-18 11:45] VITALS: BMI 41.1
[2020-11-04 15:01] LABS: CREATININE FINGERSTICK 2.3 mg/dL (0.70-1.30)
--- NOTE | 2020-11-06 11:20 | CT_ITS ---
STUDY: CT ABDOMEN AND PELVIS WITH CONTRAST REASON FOR EXAM: Male, 70 years old. GENERALIZED ABD PAIN, ABNORMAL WEIGHT LOSS RADIATION DOSAGE (If Supplied By Facility): CTDIvol = ( 29.53 ) mGy, DLP = ( 1213.06 ) mGycm TECHNIQUE: Transaxial images were obtained from the dome of the diaphragm to the symphysis pubis without oral contrast. IV 75mL Isovue-370 was administered. Sagittal and coronal images were reconstructed. Individualized dose optimization techniques were used for this CT. COMPARISON: Comparison is made with prior examination dated 08/12/2020. FINDINGS: There is a 5.7 mm calcified granuloma in the posterior medial segment of the right lower lobe. There is also evidence of a 5.4 mm calcified granuloma in the medial posterior aspect of the lingular segment of the left upper lobe. Coronary artery calcification. Normal liver. The patient is status post cholecystectomy. Normal spleen. Normal pancreas. Normal bilateral adrenal glands. Normal right kidney. Normal left kidney. There is a small hiatal hernia. Normal small intestine. There is a fusiform infrarenal abdominal aortic aneurysm with a transverse dimension of 3.3 cm. Densely calcified plaque seen at the origin of the celiac artery. There is decreased size of the splenic artery as well as the common hepatic artery. Dense calcific plaque is also seen at the origin of the superior mesenteric artery. Atherosclerotic calcific plaque seen throughout the branches of the superior mesenteric artery. Decreased flow in the distal branches. There is evidence of mural thrombus. Calcific plaque seen in the right and left common iliac arteries. Normal colon. The appendix is visualized and appears normal. There is diffuse atherosclerotic calcification of the abdominal aorta.Normal inferior vena cava. Normal retroperitoneum. Normal urinary bladder. There are prostatic calcifications. Normal abdominal wall. Normal osseous structures. CT/CT ANGIO ABD&PEL W/O&W/DYE IMPRESSION: Fusiform infrarenal abdominal aortic aneurysm with a transverse dimension of 3.3 cm. There is evidence of a mural thrombus. Stenotic plaque at the origin of the superior mesenteric artery and celiac artery with narrowing of the distal branches. Mesenteric ischemia should BE ruled out. The patient is status post cholecystectomy. Electronically Signed: Timothy Cruz MD at 13:42 EDT , Service support ,
[2020-11-06 11:39] VITALS: BP 184/88; PULSE 90; RESP 18; TEMP 37; O2SAT 96; BMI 38.2
== END ==
PROVIDERS: PCP Family Medicine; Referring Provider Internal Medicine; Visit Provider Internal Medicine
DX: R10.84 Generalized abdominal pain (principal); R63.4 Abnormal weight loss
CPT/HCPCS: 74174; J7040; Q9967

== ENCOUNTER → 2020-11-07 11:09 | Outpatient (CLI) | payer MEDICARE, OTHER, SELFPAY ==
[2020-09-18 11:45] VITALS: BMI 41.1
[2020-11-06 11:39] VITALS: BMI 38.2
--- NOTE | 2020-11-07 11:10 | NM_ITS ---
Gastric imaging study INDICATION: Abdominal pain, weight loss. TECHNIQUE: After the ministration 1.1 mCi of technetium 99m sulfur colloid in a meal of oatmeal orally, multiple scintigraphic images of the abdomen were obtained. Furthermore, counts were obtained and a gastric emptying curve was plotted. FINDINGS: Normal uptake within the stomach with passage through the duodenum into the small bowel. Next After 1 hour, there is 85 % emptying, which is normal. Next T1 half is 30 minutes which is a the lower limits of normal. IMPRESSION: Normal gastric emptying. Electronically Signed: Berry Teague MD at 14:05 EDT Tel , Service support , NM/Gastric Emptying Study
== END ==
PROVIDERS: PCP Family Medicine; Referring Provider Internal Medicine; Visit Provider Internal Medicine
DX: R10.84 Generalized abdominal pain (principal); R63.4 Abnormal weight loss
CPT/HCPCS: 78264; A9541

== ENCOUNTER → 2022-07-27 | Outpatient (CLI) | payer MEDICARE, OTHER, SELFPAY ==
[2022-07-27 11:57] LABS: Absolute Lymphocyte Count 1.32 X10^3/uL (0.83-4.51); Absolute Neutrophil Count 5.6 X10^3/uL (2.0-7.7); Basophil# 0.05 X10^3/uL; Basophil% 0.6 % (0-1); Eosinophil# 0.29 X10^3/uL; Eosinophils% 3.6 % (0-5); Hematocrit 44.3 % (40-54); Lymphocyte # 1.32 X10^3/ul (0.83-4.51); Lymphocyte % 16.4 % (19-41); Mean Corp Hgb Conc 31.6 g/dL (32-36); Mean Corpuscular Hgb 29.2 pg (27.0-32.0); Mean Corpuscular Volume 92.5 fL (80-94); Mean Platelet Vol. 9.7 fl (6.2-12.0); Monocyte# 0.78 X10^3/uL; Monocyte% 9.7 % (0-10); NRBC Flagged by Analyzer 0 % (0-5); Neutrophil # 5.58 X10^3/uL (2.7-7.7); Neutrophil % 69.5 % (47-70); Platelet Count 313 K/mm3 (150-450); RBC Distribution Width CV 14.6 % (11.6-14.6); RBC Distribution Width SD 50.1 fl (35.1-43.9); Red Blood Count 4.79 M/mm3 (4.6-6.2)
[2022-07-27 12:22] LABS: ALB/GLOB Ratio 0.8 RATIO (0.9-2.4); AST(SGOT) 16 U/L (15-37); Alanine Aminotransfer ALT/SGPT 17 U/L (16-61); Albumin, Serum 3.3 g/dL (3.2-5.0); Alkaline Phosphatase 93 U/L (45-117); Anion Gap 7 (5-15); BUN 20 mg/dL (7-18); BUN/Creat Ratio 15.9 RATIO (10-20); Chloride 106 mmol/L (98-107); Cholesterol 189 mg/dL (200); Creatinine, Serum 1.26 mg/dL (0.70-1.30); EST Glomerular Filtration Rate 60 mL/min (>60); Est Glom Filt Rate - Afr Amer 72 mL/min (>60); Globulin 4.4 g/dL (2.2-4.2); Glucose 115 mg/dL (74-106); High Density Lipoprotein 54 mg/dL; Potassium 4.4 mmol/L (3.5-5.1); Protein, Total 7.7 g/dL (6.4-8.2); Sodium Level 141 mmol/L (136-145); Thyroid Stim Hormone (TSH) 1.34 uIU/mL (0.358-3.74); Triglycerides 87 mg/dL; Very Low Density Lipoprotein 17 mg/dL (5-40)
[2022-07-27 12:25] LABS: Hemoglobin A1c 5.8 % (3.8-5.6)
[2022-07-27 12:26] LABS: BNP,B-Type NATRIURETIC PEPTIDE 110.9 pg/mL (0-100)
== END | disposition home or self-care (01) ==
LOC: BFHLAB 09:39
PROVIDERS: PCP Family Medicine; Visit Provider Family Medicine
DX: E11.9 Type 2 diabetes mellitus without complications (principal); I10 Essential (primary) hypertension; R06.09 Other forms of dyspnea
CPT/HCPCS: 36415; 80053; 80061; 83036; 83880; 84443; 85025

== ENCOUNTER → 2022-07-29 | Outpatient (CLI) | payer MEDICARE, OTHER, SELFPAY ==
--- NOTE | 2022-07-29 10:03 | RAD_ITS ---
STUDY: X-RAY CHEST REASON FOR EXAM: Male, 72 years old. Cough. TECHNIQUE: Frontal and lateral views of the chest. COMPARISON: February 2020. FINDINGS: Mild hyperinflation unchanged. There is no demonstrated pleural abnormality. Stable cardiomegaly. Normal mediastinum and gabriela. Normal visualized pulmonary arteries. Stable aortic tortuosity with calcification. Thoracic osteopenia with spondylosis, anterior wedge compression deformities and increased kyphosis. Normal visualized ribs, clavicles, and shoulders. There is no demonstrated abnormality of the visualized soft tissue structures of the upper abdomen. RAD/Chest PA and Lateral IMPRESSION: Cardiomegaly with hyperinflation. No active or acute cardiopulmonary disease. Electronically Signed: Liborio Ceja, at 10:39 EST ,
== END | disposition home or self-care (01) ==
LOC: MTRAD 10:02
PROVIDERS: PCP Family Medicine; Visit Provider Family Medicine
DX: R06.09 Other forms of dyspnea (principal); R05.9 Cough, unspecified
CPT/HCPCS: 71046

== ENCOUNTER 2022-07-31 14:21 | Emergency (ER) | payer MEDICARE, OTHER, SELFPAY ==
[2022-07-31 14:22] VITALS: BP 163/97; PULSE 95; RESP 16; TEMP 36.4; O2SAT 98
--- NOTE | 2022-07-31 14:51 | EKG12_ITS ---
Test Reason : PALP Blood Pressure : / mmHG Vent. Rate : 090 BPM Atrial Rate : 090 BPM P-R Int : 156 ms QRS Dur : 078 ms QT Int : 358 ms P-R-T Axes : 059 -11 022 degrees QTc Int : 437 ms Normal sinus rhythm Low voltage QRS (Precordial Leads) Cannot rule out Inferior infarct , age undetermined Abnormal ECG Confirmed by JERALD RODRIGUEZ, SENG ([id number]), market editor DEWEY MACHADO ([id number]) on 08/03/2022 1:48:35 PM Referred By: TORIBIO Confirmed By:SENG MARQUES MD
[2022-07-31 15:23] VITALS: O2SAT 94
[2022-07-31 15:24] VITALS: BMI 45.3
[2022-07-31 15:28] LABS: Absolute Lymphocyte Count 1.08 X10^3/uL (0.83-4.51); Absolute Neutrophil Count 6.1 X10^3/uL (2.0-7.7); Basophil# 0.06 X10^3/uL; Basophil% 0.7 % (0-1); Eosinophil# 0.15 X10^3/uL; Eosinophils% 1.8 % (0-5); Hemoglobin 14.9 g/dL (13.0-16.5); Lymphocyte # 1.08 X10^3/ul (0.83-4.51); Lymphocyte % 13.3 % (19-41); Mean Corp Hgb Conc 31.7 g/dL (32-36); Mean Corpuscular Hgb 28.9 pg (27.0-32.0); Mean Corpuscular Volume 91.1 fL (80-94); Mean Platelet Vol. 9.2 fl (6.2-12.0); Monocyte# 0.73 X10^3/uL; NRBC Flagged by Analyzer 0 % (0-5); Neutrophil # 6.07 X10^3/uL (2.7-7.7); Neutrophil % 74.8 % (47-70); Platelet Count 301 K/mm3 (150-450); RBC Distribution Width CV 14.5 % (11.6-14.6); RBC Distribution Width SD 48.4 fl (35.1-43.9); Red Blood Count 5.16 M/mm3 (4.6-6.2); White Blood Count 8.1 K/mm3 (4.4-11.0)
--- NOTE | 2022-07-31 15:40 | RAD_ITS ---
EXAM: XR CHEST, 1 VIEW CLINICAL INDICATION: chest pain TECHNIQUE: Frontal view of the chest. This report was created using [employer] report generation technology. COMPARISON: 07/29/2022 FINDINGS: LUNGS AND PLEURAL SPACES: There is mild left basilar scarring. There is no focal consolidation or effusion. No pneumothorax. HEART: Unremarkable. Cardiac silhouette not enlarged. MEDIASTINUM: Central airways and mediastinal contour are unremarkable. BONES/JOINTS: See above. SOFT TISSUES: Unremarkable. RAD/Chest 1 View (Portable) IMPRESSION: Mild scarring with no acute pulmonary abnormality. Electronically Signed: Reece Henry MD at 16:50 EST ,
--- NOTE | 2022-07-31 15:42 | EDS_ITS ---
HPI History of Present Illness Chief Complaint: Palpitations Narrative Narrative: Patient presenting from cardiology after having a stress test done today as an outpatient. He states this was ordered by his primary care physician. Apparently during his stress test he went into atrial fibrillation/a flutter. He states that this is resolved now. He never reported any chest pain. He does state that he has been short of breath for the last few weeks. He describes dyspnea on exertion. He has some lower extremity edema. He believes he has gained about 15 to 20 pounds over the last month. He does not have orthopnea. He is not having chest pain. He does not have a history of A-fib. He is not on any anticoagulation. He states his only medical problem is hypertension and he takes amlodipine 10 mg. He also takes aspirin 325 mg daily. [facility] Medical History COVID-19 Gallstones Hypertension Melanoma in situ SARS pneumonia Home Medications amlodipine 10 mg tablet 10 mg PO DAILY bp 03/29/20 [History Last Taken 09/18/20] apixaban 5 mg (74 tabs) tablets in a dose pack (Eliquis DVT-PE Treat 30D Start) 5 mg PO BID #74 tabs 07/31/22 [Rx Last Taken Unknown] aspirin 325 mg tablet 325 mg PO DAILY 07/31/22 [History Last Taken Unknown] furosemide 20 mg tablet (Lasix) 20 mg PO QODAY #30 tabs 07/31/22 [Rx Last Taken Unknown] metoprolol tartrate 25 mg tablet 25 mg PO BID #60 tabs 07/31/22 [Rx Last Taken Unknown] Allergy/AdvReac Type Severity Reaction Status Date / Time Penicillins AdvReac Other Verified 07/31/22 14:22 Family History Father Heart disease Mother Heart disease Brother Heart disease Surgical History History of colonoscopy History of foot surgery History of left-sided carotid endarterectomy History of total left knee replacement S/P cholecystectomy Social History Smoking Status: Former smoker ROS ROS ED Constitutional Constitutional ED: Denies chills, fever(s) or sweats Eyes Eyes: Denies blurry vision or change in vision ENT ENT ED: Denies ear pain or sore throat Cardiovascular Cardiovascular: Reports racing heartbeat; Denies chest pain, orthopnea or palpitations Respiratory/Chest Respiratory/Chest: Reports dyspnea on exertion; Denies dyspnea or orthopnea Gastrointestinal Gastrointestinal: Denies abdominal pain, constipation, diarrhea, nausea or vomiting Genitourinary Genitourinary ED: Denies dysuria, hematuria or urinary frequency Musculoskeletal Musculoskeletal: Denies arthralgias, myalgias or neck pain Integumentary Denies abscess, Abrasions or rash Neurologic Neurologic: Denies headache(s), paresthesias or weakness Psychiatric Psychiatric: Denies anxiety, depression, suicidal ideation or suicidal thoughts Endocrine Endocrinology: Denies polydipsia or polyuria EXAM Physical Exam Const Vital Signs: 07/31/22 14:22 07/31/22 15:23 Temperature 97.6 F L Temperature Source Temporal Pulse Rate 95 Respiratory Rate 16 Blood Pressure 163/97 H Blood Pressure Mean 119 Pulse Ox 98 94 Oxygen Delivery Method Room Air Room Air Positive well nourished and obese General Appearance ED: NAD Nutritional Appearance: obese HEENT Reports moist mucous membranes atraumatic Eyes PERRL and EOMs intact bilaterally Resp normal respiratory effort and clear to auscultation bilaterally Auscultation: Negative for rales, rhonchi or wheezes Cardio regular rate and regular rhythm GI non-tender Extremity Extremity Narrative: 1+ pitting edema bilaterally. Calves are soft. No cords palpated. Neuro oriented x3 Skin no wounds MDM MDM MDM Narrative Medical decision making narrative: Well-appearing 72-year-old male presenting after having episode of atrial fibrillation/flutter during a stress test. He states that stress test was or dered because he has dyspnea on exertion which has been ongoing for about a month. He also complains of lower extremity edema and 15 to 20 pound weight gain. Differential diagnosis includes but not limited to ACS, CHF, pneumonia, PE, pneumothorax. CBC to assess white blood cell count, hemoglobin, differential. BMP to assess renal function, electrolytes, glucose, anion gap. High-sensitivity troponin and BNP will be assessed since he is giving a history consistent with CHF. Patient currently is not tachycardic but given he has new onset A-fib I will obtain D-dimer because I cannot PERC him out chest x-ray is also obtained. EKG was performed on my interpretation shows a normal sinus rhythm with a ventricular rate of 90 bpm without sign of ischemic change. There is no evidence of A-fib on this EKG. CBC shows a normal white blood cell count of 8.1. Hemoglobin stable at 14.9. Platelets normal at 301. Creatinine slightly elevated today at 1.33 which is not far off the patient's baseline. There is no prerenal azotemia. High-sensitivity troponin 16. BNP 104.1 delta troponin came back at 33 and the patient is not having any chest pain. This is likely due to going into A-fib/flutter but it does not meet criteria for admission. Age-adjusted D-dimer is normal. I spoke with Dr. Thibodeaux regarding the patient. He did state that his stress test did not show any obvious wall motion abnormalities or reversible ischemia. He states that he watched him for 45 minutes or so and he continually was in A-fib and flutter but when he was sent to the emergency room he has been in a normal sinus rhythm here. He is not tachycardic. He is well-appearing. Dr. Thibodeaux did feel as if this is a good candidate for outpatient follow-up with cardiology. Dr. Thibodeaux did state that he was not sure if this is why the patient was getting short of breath with exertion because it seemed as if while he was walking he went into A-fib and flutter. I did discuss with him that his story is more consistent with CHF with weight gain, lower extremity edema, dyspnea on exertion. He will need a formal echocardiogram. Dr. Thibodeaux recommended a Holter monitor which was placed. This will be for 24 hours. He recommended putting the patient on metoprolol tartrate 25 mg p.o. twice daily, Eliquis, Lasix 20 mg daily. Patient was given the first dose of each in the ER. I discussed this with Dr. Sutton so he was aware. Patient will follow-up with both Dr. Sutton and Dr. Thibodeaux on an outpatient basis. Patient given thorough education on anticoagulation and bleeding and reasons to return to the ER for this. He was also given return precautions otherwise. Patient stable for discharge at this time. Impression: 1. Paroxysmal A-fib 2. Paroxysmal atrial flutter 3. Dyspnea on exertion Lab Data Attestation: I reviewed the patient's lab results. Labs: Laboratory Results - last 24 hr 07/31/22 07/31/22 07/31/22 15:15 15:15 15:15 WBC 8.1 RBC 5.16 Hgb 14.9 Hct 47.0 MCV 91.1 MCH 28.9 MCHC 31.7 L RDW Std Deviation 48.4 H RDW Coeff of Ambreen 14.5 Plt Count 301 MPV 9.2 Immature Gran % (Auto) 0.400 Neut % (Auto) 74.8 H Lymph % (Auto) 13.3 L Banner % (Auto) 9.0 Eos % (Auto) 1.8 Baso % (Auto) 0.7 Absolute Neuts (auto) 6.1 Absolute Lymphs (auto) 1.08 Nucleated RBC % 0 D-Dimer Quant (PE/DVT) Sodium 141 Potassium 4.2 Chloride 105 Carbon Dioxide 27.0 Anion Gap 9 BUN 18 Creatinine 1.33 H Estim Creat Clear Calc 50.20 Est GFR (MDRD) Af Amer 68 Est GFR (MDRD) Non-Af 56 L BUN/Creatinine Ratio 13.5 Glucose 112 H Calcium 8.9 Troponin I High Sens 16 B-Natriuretic Peptide 104.1 H 07/31/22 07/31/22 15:51 18:13 WBC RBC Hgb Hct MCV MCH MCHC RDW Std Deviation RDW Coeff of Ambreen Plt Count MPV Immature Gran % (Auto) Neut % (Auto) Lymph % (Auto) Banner % (Auto) Eos % (Auto) Baso % (Auto) Absolute Neuts (auto) Absolute Lymphs (auto) Nucleated RBC % D-Dimer Quant (PE/DVT) 0.65 H* Sodium Potassium Chloride Carbon Dioxide Anion Gap BUN Creatinine Estim Creat Clear Calc Est GFR (MDRD) Af Amer Est GFR (MDRD) Non-Af BUN/Creatinine Ratio Glucose Calcium Troponin I High Sens 33 B-Natriuretic Peptide Radiography Diagnostic Testing: Clinical Impression(s) from Imaging Studies Chest X-Ray 07/31/22 15:40 IMPRESSION: Mild scarring with no acute pulmonary abnormality. Electronically Signed: Reece Henry MD at 16:50 EST , Discharge Plan Triage Chief Complaint: Palpitations Other Complaint: Shortness of Breath ED Provider: Pete Vargas Dx/Rx/DC Orders Clinical Impression: A-fib Instructions: ED AFIB, ED Atrial Flutter, ED Heart Failure, Congestive (CHF), ED Holter Monitor Prescriptions: New Eliquis DVT-PE Treat 30D Start 5 mg (74 tabs) tablets,dose pack 5 mg PO BID Qty: 74 0RF metoprolol tartrate 25 mg tablet 25 mg PO BID Qty: 60 0RF furosemide [Lasix] 20 mg tablet 20 mg PO QODAY Qty: 30 0RF No Action amlodipine 10 MG tablet 10 mg PO DAILY aspirin 325 mg Tablet 325 mg PO DAILY Primary Care Provider: Tacos Sutton Referrals: Tacos Sutton DO [Primary Care Provider] - Yoel Thibodeaux MD [Med Staff - Active Staff] - As soon as possible Disposition Disposition: Home, Self Care
[2022-07-31 15:45] LABS: Anion Gap 9 (5-15); BUN 18 mg/dL (7-18); BUN/Creat Ratio 13.5 RATIO (10-20); Calcium,Total 8.9 mg/dL (8.5-10.1); Chloride 105 mmol/L (98-107); Creatinine, Serum 1.33 mg/dL (0.70-1.30); EST Glomerular Filtration Rate 56 mL/min (>60); Est Glom Filt Rate - Afr Amer 68 mL/min (>60); Glucose 112 mg/dL (74-106); Potassium 4.2 mmol/L (3.5-5.1); Sodium Level 141 mmol/L (136-145); Troponin-I HS 16 pg/mL (3.0-78.0)
[2022-07-31 16:30] LABS: D-Dimer Quantitative (DVT/PE) 0.65 FEU/ug/m (0.27-0.49)
[2022-07-31 16:31] LABS: BNP,B-Type NATRIURETIC PEPTIDE 104.1 pg/mL (0-100)
[2022-07-31 18:38] LABS: Troponin-I HS 33 pg/mL (3.0-78.0)
[2022-07-31] MEDS: Metoprolol Tartrate 25 MG Tablet PO (19:27)
[2022-07-31] MEDS: APIXABAN 5 MG TABLET 10 MG PO (19:27)
[2022-07-31] MEDS: Furosemide 20 MG/2 ML VIAL IV (19:28)
[2022-07-31 19:39] VITALS: BP 179/100; PULSE 83; RESP 18; O2SAT 94
== END 2022-07-31 19:45 | disposition home or self-care (01) ==
PROVIDERS: Emergency Provider Student in an Organized Health Care Education/Training Program; PCP Family Medicine; Visit Provider Student in an Organized Health Care Education/Training Program
DX: I48.0 Paroxysmal atrial fibrillation (principal); I48.92 Unspecified atrial flutter; I10 Essential (primary) hypertension; R06.09 Other forms of dyspnea; E66.9 Obesity, unspecified; Z79.82 Long term (current) use of aspirin; Z79.899 Other long term (current) drug therapy; Z87.891 Personal history of nicotine dependence
CPT/HCPCS: 71045; 80048; 83880; 84484; 85025; 85379; 93005; 93017; 93225; 93226; 93350; 96374; 99283; Q9957; A4216; C8928; J1940

== ENCOUNTER → 2022-07-31 | Outpatient (CLI) | payer MEDICARE, OTHER, SELFPAY | END | disposition home or self-care (01) | LOC: CVS 19:01 | PROVIDERS: PCP Family Medicine; Visit Provider Student in an Organized Health Care Education/Training Program | DX: I49.9 Cardiac arrhythmia, unspecified (principal) | CPT/HCPCS: 93225; 93226 ==

== ENCOUNTER → 2022-07-31 | Outpatient (CLI) | payer MEDICARE, OTHER, SELFPAY ==
--- NOTE | 2022-07-31 12:31 | STEWCON_ITS ---
Reason For Study: SOB Stress Results Protocol: Mario Protocol WITH DEFINITY Maximum Predicted HR: 148 bpm Target HR: 126 bpm % Maximum Predicted HR: 101 % Heart Stage Duration Rate BP Comment (mm:ss) (bpm) BASELINE 95 152/76 3 ml Definity STAGE 1 3:00 135 182/1002 ml Definity STAGE 2 0:25 136 / LEG HEAVINESS, SOB ARIAL FIB/FLUTTER NOTED ON ECG,DR MARQUES AT BEDSIDE, TRANSFERRED RECOVERY 150 138/82 TO ER VIA WHEELCHAIR. REPORT GIVEN TO NURSE Stress Duration: 3:25 mm:ss Maximum Stress HR: 150 bpm METS: 4 Baseline Echocardiogram Findings Stress Echo Wall motion Data Resting WM Intermediate WM Stress WM Stress Results Heart rate response: Technically adequate: Percent predicted maximal heart rate greater than 85%) Blood pressure response: Resting hypertension-appropriate response Cardiac rhythm: Rare PVC during exercise and recovery; atrial flutter with rapid ventricular response during recovery with intermittent return to sinus rhythm with subsequent return to atrial flutter with rapid ventricular response Functional capacity: Fair Stopped secondary to: Dyspnea and leg fatigue. EKG Data Baseline ECG: Sinus rhythm. Peak exercise ECG: Somatic/motion artifact with no obvious ECG changes. Symptoms with Stress No complaint of chest discomfort during exercise or recovery. ECHO/Stress Test Echo W/Contrast Interpretation Summary 1: Contrast injection performed 2. Negative (technically adequate: Percent predicted maximal heart rate greater than 85%) stress echocardiogram 3. Cardiac dysrhythmia: Recovery ECG demonstrating atrial flutter with rapid ve ntricular response with intermittent episodes of sinus rhythm with subsequent return to atrial flu tter with rapid ventricular response Comment: The patient's case was discussed and reviewed with the patient. Based upon the patient's ongoing atrial dysrhythmia the recommendation was made for the patient to be fu rther evaluated by the [facility] emergency department staff. The patient was subs equently transported to the [facility] emergency department by the cardiovascular nu rsing staff. Ordering Physician: Herman, Tacos Performed By: Enriqueta Mcghee RCS
== END | disposition home or self-care (01) ==
LOC: CVS 12:29
PROVIDERS: PCP Family Medicine; Visit Provider Family Medicine
DX: R06.09 Other forms of dyspnea (principal)
CPT/HCPCS: 93017; 93350; Q9957; A4216; C8928

== ENCOUNTER → 2022-09-03 | Outpatient (CLI) | payer MEDICARE, OTHER, SELFPAY ==
--- NOTE | 2022-09-03 09:51 | ECHOCS_ITS ---
Reason For Study: Afib Procedure This was a 2D Doppler, Color Flow transthoracic echocardiogram. The study was technically difficult. Contrast injection was performed. Exam performed in department. Left Ventricle Normal size and thickness. The left ventricular ejection fraction is 60 %. Normal diastology for age. Right Ventricle Normal right ventricle. Atria The left and right atria are normal. Mitral Valve Mild mitral annular calcification. Mild mitral valve stenosis. Mild (1+) mitral valve insufficiency. Tricuspid Valve Mild tricuspid valve insufficiency. Pulmonary artery systolic pressure is 41 mmHg. Mild pulmonary hypertension. Aortic Valve The aortic valve is not well visualized in the short axis view. Moderate diffuse aortic valve calcification. Mild aortic stenosis. Pulmonic Valve The pulmonic valve is not well visualized. Great Vessels The aortic root is not well visualized. Pericardium/Pleural No pericardial effusion. Medication 22 gauge I.V. with prn adaptor inserted into right arm. Diluted definity 3.5ml given slow IV push to enhance endocardial definition. MMode/2D Measurements & Calculations RVDd: 3.5 cm LVOT diam: 2.0 cm LA dimension: 4.2 cm LVOT area: 3.1 cm2 LAV(MOD-bp): 65.9 ml LA A4 area: 24.3 cm2 RA A4 area: 18.1 cm2 LAV(MOD-bp) Indexed: 26.6 ml/m2 LAV(MOD-sp2): 61.1 ml LAV(MOD-sp4): 70.5 ml Time Measurements MV dec time: 0.22 sec Doppler Measurements & Calculations MV E max bola: 145.4 cm/sec Lat Peak E' Bola: 8.9 cm/sec Med Peak E' Bola: 11.3 cm/sec MV A max bola: 120.8 cm/sec E/E' lat: 16.4 E/E' med: 12.9 MV E/A: 1.2 MV V2 max: 158.8 cm/sec MV P1/2t max bola: 160.1 cm/sec Ao V2 max: 224.3 cm/sec MV max P.1 mmHg MV P1/2t: 80.9 msec Ao max P.2 mmHg MV V2 mean: 94.0 cm/sec Ao V2 mean: 155.7 cm/sec MV mean P.1 mmHg MV dec slope: 579.9 cm/sec2 Ao mean P.9 mmHg MV V2 VTI: 48.0 cm MVA(P1/2t): 2.7 cm2 Ao V2 VTI: 56.1 cm AV (velocity ratio): 0.44 MVA(VTI): 1.6 cm2 NOA(I,D): 1.3 cm2 NOA(V,D): 1.4 cm2 LV V1 max: 100.7 cm/sec SV(LVOT): 75.3 ml PA V2 max: 96.8 cm/sec LV V1 max P.1 mmHg LV V1 mean P.1 mmHg LV V1 mean: 68.5 cm/sec LV V1 VTI: 24.5 cm TR max bola: 301.5 cm/sec TR max P.4 mmHg ECHO/Echo Complete W/ Contrast Interpretation Summary The study was technically difficult. The left ventricular ejection fraction is 60 %. Mild mitral annular calcification. Mild (1+) mitral valve insufficiency. Mild mitral valve stenosis. Mild tricuspid valve insufficiency. Mild pulmonary hypertension. Mild aortic stenosis. Ordering Physician: Alexandrea Anderson Referring Physician: Tacos Sutton Performed By: Fernando Way RCS
== END | disposition home or self-care (01) ==
LOC: CVS 09:50
PROVIDERS: PCP Family Medicine; Referring Provider Internal Medicine Cardiovascular Disease; Visit Provider Internal Medicine Cardiovascular Disease
DX: R06.09 Other forms of dyspnea (principal)
CPT/HCPCS: 93306; Q9957; A4216; C8929

== ENCOUNTER → 2022-12-02 | Outpatient (CLI) | payer MEDICARE, OTHER, SELFPAY ==
[2022-12-02 17:53] LABS: Absolute Lymphocyte Count 1.23 X10^3/uL (0.83-4.51); Absolute Neutrophil Count 5.3 X10^3/uL (2.0-7.7); Basophil# 0.07 X10^3/uL; Basophil% 0.9 % (0-1); Eosinophil# 0.36 X10^3/uL; Eosinophils% 4.6 % (0-5); Hematocrit 42.8 % (40-54); Hemoglobin 13.9 g/dL (13.0-16.5); Lymphocyte # 1.23 X10^3/ul (0.83-4.51); Lymphocyte % 15.8 % (19-41); Mean Corp Hgb Conc 32.5 g/dL (32-36); Mean Corpuscular Hgb 29.1 pg (27.0-32.0); Mean Corpuscular Volume 89.7 fL (80-94); Mean Platelet Vol. 9.6 fl (6.2-12.0); Monocyte% 10.3 % (0-10); NRBC Flagged by Analyzer 0 % (0-5); Neutrophil # 5.33 X10^3/uL (2.7-7.7); Neutrophil % 68.3 % (47-70); Platelet Count 312 K/mm3 (150-450); RBC Distribution Width CV 14.2 % (11.6-14.6); RBC Distribution Width SD 46.4 fl (35.1-43.9); Red Blood Count 4.77 M/mm3 (4.6-6.2); White Blood Count 7.8 K/mm3 (4.4-11.0)
[2022-12-02 18:36] LABS: ALB/GLOB Ratio 0.7 RATIO (0.9-2.4); AST(SGOT) 11 U/L (15-37); Alanine Aminotransfer ALT/SGPT 17 U/L (16-61); Albumin, Serum 3.1 g/dL (3.2-5.0); Alkaline Phosphatase 92 U/L (45-117); Anion Gap 5 (5-15); BUN 35 mg/dL (7-18); BUN/Creat Ratio 18.5 RATIO (10-20); Calcium,Total 8.9 mg/dL (8.5-10.1); Chloride 108 mmol/L (98-107); Creatinine, Serum 1.89 mg/dL (0.70-1.30); EST Glomerular Filtration Rate 37 mL/min (>60); Est Glom Filt Rate - Afr Amer 45 mL/min (>60); Globulin 4.7 g/dL (2.2-4.2); Glucose 97 mg/dL (74-106); Magnesium 2.3 mg/dL (1.6-2.6); PSA,Total - Annual Screen 0.14 ng/mL (0.00-4.00); Potassium 4.7 mmol/L (3.5-5.1); Protein, Total 7.8 g/dL (6.4-8.2); Sodium Level 139 mmol/L (136-145)
== END | disposition home or self-care (01) ==
LOC: BFHLAB 14:32
PROVIDERS: PCP Nurse Practitioner Family; Referring Provider Nurse Practitioner Family; Visit Provider Nurse Practitioner Family
DX: I10 Essential (primary) hypertension (principal); Z12.5 Encounter for screening for malignant neoplasm of prostate; R35.0 Frequency of micturition
CPT/HCPCS: 36415; 80053; 83735; 84153; 85025; G0103

== ENCOUNTER → 2023-03-16 | Outpatient (CLI) | payer MEDICARE, OTHER, SELFPAY | END | disposition home or self-care (01) | LOC: SL 19:36 | PROVIDERS: PCP Family Medicine; Referring Provider Nurse Practitioner Acute Care; Visit Provider Nurse Practitioner Acute Care | DX: G47.10 Hypersomnia, unspecified (principal) | CPT/HCPCS: 95811 ==

== ENCOUNTER → 2023-03-31 | Outpatient (CLI) | payer MEDICARE, OTHER, SELFPAY | END | disposition home or self-care (01) | LOC: SL 11:52 | PROVIDERS: PCP Family Medicine; Visit Provider Nurse Practitioner Acute Care | DX: G47.33 Obstructive sleep apnea (adult) (pediatric) (principal) ==

== ENCOUNTER → 2023-04-27 | Outpatient (CLI) | payer MEDICARE, OTHER, SELFPAY ==
[2023-04-27 11:43] LABS: AST(SGOT) 8 U/L (15-37); Alanine Aminotransfer ALT/SGPT 15 U/L (16-61); Alkaline Phosphatase 98 U/L (45-117); Bilirubin, Direct 0.09 mg/dL (0.00-0.30); Cholesterol 195 mg/dL (200); Globulin 4.5 g/dL (2.2-4.2); High Density Lipoprotein 49 mg/dL; Protein, Total 7.5 g/dL (6.4-8.2); Triglycerides 103 mg/dL; Very Low Density Lipoprotein 21 mg/dL (5-40)
== END | disposition home or self-care (01) ==
LOC: LAB 10:13
PROVIDERS: PCP Family Medicine; Referring Provider Internal Medicine Cardiovascular Disease; Visit Provider Internal Medicine Cardiovascular Disease
DX: E78.00 Pure hypercholesterolemia, unspecified (principal)
CPT/HCPCS: 36415; 80061; 80076

== ENCOUNTER → 2023-05-11 | Outpatient (CLI) | payer MEDICARE, OTHER, SELFPAY ==
[2023-05-11 17:41] LABS: Absolute Lymphocyte Count 1.03 X10^3/uL (0.83-4.51); Absolute Neutrophil Count 8.2 X10^3/uL (2.0-7.7); Basophil# 0.11 X10^3/uL; Eosinophil# 0.32 X10^3/uL; Lymphocyte # 1.03 X10^3/ul (0.83-4.51); Lymphocyte % 9.6 % (19-41); Mean Corp Hgb Conc 31.4 g/dL (32-36); Mean Corpuscular Hgb 28.1 pg (27.0-32.0); Mean Corpuscular Volume 89.5 fL (80-94); Mean Platelet Vol. 9.4 fl (6.2-12.0); Monocyte# 1.05 X10^3/uL; Monocyte% 9.8 % (0-10); NRBC Flagged by Analyzer 0 % (0-5); Neutrophil # 8.18 X10^3/uL (2.7-7.7); Neutrophil % 76.4 % (47-70); Platelet Count 354 K/mm3 (150-450); RBC Distribution Width CV 13.3 % (11.6-14.6); RBC Distribution Width SD 43.8 fl (35.1-43.9); Red Blood Count 3.91 M/mm3 (4.6-6.2); White Blood Count 10.7 K/mm3 (4.4-11.0)
[2023-05-11 18:10] LABS: BNP,B-Type NATRIURETIC PEPTIDE 411.9 pg/mL (0-100)
[2023-05-11 18:25] LABS: Anion Gap 7 (5-15); BUN 23 mg/dL (7-18); BUN/Creat Ratio 11.1 RATIO (10-20); Calcium,Total 8.6 mg/dL (8.5-10.1); Chloride 104 mmol/L (98-107); Creatinine, Serum 2.08 mg/dL (0.70-1.30); EST Glomerular Filtration Rate 33 mL/min (>60); Est Glom Filt Rate - Afr Amer 41 mL/min (>60); Glucose 96 mg/dL (74-106); Potassium 3.7 mmol/L (3.5-5.1); Sodium Level 138 mmol/L (136-145)
== END | disposition home or self-care (01) ==
LOC: MTLAB 13:28
PROVIDERS: PCP Family Medicine; Referring Provider Family Medicine; Visit Provider Family Medicine
DX: R06.00 Dyspnea, unspecified (principal); I42.9 Cardiomyopathy, unspecified; N18.32 Chronic kidney disease, stage 3b
CPT/HCPCS: 36415; 80048; 83880; 85025

== ENCOUNTER → 2023-11-02 | Outpatient (CLI) | payer MEDICARE, OTHER, SELFPAY | END | disposition home or self-care (01) | LOC: PSN 12:19 | PROVIDERS: PCP Family Medicine; Referring Provider Nurse Practitioner Acute Care; Visit Provider Nurse Practitioner Acute Care | DX: R06.09 Other forms of dyspnea (principal) | CPT/HCPCS: 94060; 94726; 94729 ==

== ENCOUNTER → 2023-11-08 | Outpatient (CLI) | payer MEDICARE, OTHER, SELFPAY ==
--- NOTE | 2023-11-08 14:25 | RAD_ITS ---
STUDY: X-RAY CHEST REASON FOR EXAM: Male, 73 years old. Shortness of breath and cough TECHNIQUE: PA and lateral views of the chest. COMPARISON: 07/31/2022 FINDINGS: Lungs are hyperexpanded, show chronic interstitial changes with superimposed diffuse interstitial edema. There are small bilateral pleural effusions. Findings suggest CHF. Follow-up recommended to ensure complete resolution. Normal size heart. Normal mediastinum and gabriela. Normal visualized pulmonary arteries. There is atherosclerotic calcification of the aortic arch with tortuosity. There are diffuse degenerative changes of the visualized thoracic spine. There is degenerative osteoarthritis of the bilateral shoulders. There is no demonstrated abnormality of the visualized soft tissue structures of the upper abdomen. RAD/Chest PA and Lateral IMPRESSION: Hyperexpanded lungs with chronic interstitial changes and superimposed interstitial edema with bilateral pleural effusions. Follow-up recommended to ensure complete resolution Electronically Signed: Jonathan Klein MD at 23:21 EDT ,
[2023-11-08 15:58] LABS: Absolute Lymphocyte Count 0.67 X10^3/uL (0.83-4.51); Absolute Neutrophil Count 7.1 X10^3/uL (2.0-7.7); Basophil# 0.08 X10^3/uL; Basophil% 0.9 % (0-1); Eosinophil# 0.22 X10^3/uL; Eosinophils% 2.5 % (0-5); Hematocrit 26.7 % (40-54); Hemoglobin 7.8 g/dL (13.0-16.5); Lymphocyte # 0.67 X10^3/ul (0.83-4.51); Lymphocyte % 7.5 % (19-41); Mean Corp Hgb Conc 29.2 g/dL (32-36); Mean Corpuscular Hgb 24.8 pg (27.0-32.0); Mean Corpuscular Volume 84.8 fL (80-94); Mean Platelet Vol. 8.9 fl (6.2-12.0); Monocyte# 0.89 X10^3/uL; NRBC Flagged by Analyzer 0 % (0-5); Neutrophil # 7.05 X10^3/uL (2.7-7.7); Neutrophil % 78.8 % (47-70); Platelet Count 455 K/mm3 (150-450); RBC Distribution Width CV 15.8 % (11.6-14.6); RBC Distribution Width SD 48.4 fl (35.1-43.9); Red Blood Count 3.15 M/mm3 (4.6-6.2); White Blood Count 8.9 K/mm3 (4.4-11.0)
[2023-11-08 16:22] LABS: BNP,B-Type NATRIURETIC PEPTIDE 435.5 pg/mL (0-100)
[2023-11-08 16:38] LABS: Anion Gap 5 (5-15); BUN 27 mg/dL (7-18); BUN/Creat Ratio 12.8 RATIO (10-20); Calcium,Total 8.9 mg/dL (8.5-10.1); Chloride 104 mmol/L (98-107); Creatinine, Serum 2.11 mg/dL (0.70-1.30); EST Glomerular Filtration Rate 33 mL/min (>60); Est Glom Filt Rate - Afr Amer 40 mL/min (>60); Glucose 102 mg/dL (74-106); Potassium 3.8 mmol/L (3.5-5.1); Sodium Level 137 mmol/L (136-145)
== END | disposition home or self-care (01) ==
PROVIDERS: PCP Family Medicine; Referring Provider Nurse Practitioner Family; Visit Provider Nurse Practitioner Family
DX: M79.89 Other specified soft tissue disorders (principal); I48.0 Paroxysmal atrial fibrillation; R05.8 Other specified cough; R06.02 Shortness of breath; I25.10 Atherosclerotic heart disease of native coronary artery without angina pectoris; R06.09 Other forms of dyspnea
CPT/HCPCS: 36415; 71046; 80048; 83880; 85025

== ENCOUNTER 2023-11-10 10:29 | Inpatient (IN) | payer MEDICARE, OTHER, SELFPAY ==
[2023-11-10] VITALS (17 sets, daily range): BP systolic 102–201; BP diastolic 80–99; PULSE 80–92; RESP 18–24; TEMP 36.4–37; O2SAT 92–98; BMI 43.5; BMI 44.6
--- NOTE | 2023-11-10 10:48 | EKG12_ITS ---
Test Reason : Blood Pressure : / mmHG Vent. Rate : 083 BPM Atrial Rate : 083 BPM P-R Int : 156 ms QRS Dur : 084 ms QT Int : 402 ms P-R-T Axes : 060 014 108 degrees QTc Int : 472 ms Normal sinus rhythm Possible Inferior infarct (cited on or before 31-JUL-2022) Abnormal ECG Confirmed by CLIFF RODRIGUEZ, JARRETT ([id number]), editorial specialist ALISSA PÉREZ ([id number]) on 11/12/2023 7:28:12 AM Referred By: GEOFF Confirmed By:JARRETT CORONADO MD
--- NOTE | 2023-11-10 10:49 | EDS_ITS ---
HPI History of Present Illness Chief Complaint: Shortness of Breath Narrative Narrative: 72-year-old male, past medical history of obstructive sleep apnea, presents from Dr. Sutton's office with increasing shortness of breath and hypoxia. He relates history that he wears oxygen at night to help him sleep for his sleep apnea. Over the last few weeks, he has had increasing shortness of breath. He quit smoking remotely around 2005. He has occasional cough with white phlegm production. He complains of bilateral leg swelling as well but denies any history of CHF. No chest pain. It was reported that his pulse ox was in the 60s at his primary care provider's office. [facility] Medical History Daytime hypersomnia Morbid obesity Carotid artery disease Paroxysmal atrial fibrillation Atrial fibrillation CAD (coronary artery disease) Dyspnea on exertion Melanoma in situ Gallstones Hypertension MADI (acute kidney injury) Syncope and collapse COVID-19 SARS pneumonia Home Medications ?Medication ?Instructions ?Recorded ?Last Taken ?Type amlodipine 10 mg tablet 10 mg PO DAILY bp 03/29/20 09/18/20 History magnesium 250 mg tablet 250 mg PO QPM 08/14/22 Unknown History vitamin E mixed 400 unit tablet 400 unit PO DAILY 08/14/22 Unknown History psyllium husk 0.4 gram capsule 0.4 g PO BID 08/24/22 Unknown History (Metamucil) metoprolol succinate 25 mg 25 mg PO DAILY #90 tabs 02/08/23 Unknown Rx tablet,extended release 24 hr albuterol sulfate 90 mcg/actuation inhalation 10/28/23 Unknown History aerosol inhaler aspirin 81 mg tablet,delayed 81 mg PO DAILY 10/28/23 Unknown History release potassium chloride 10 mEq 10 meq PO BID 10/28/23 Unknown History tablet,extended release umeclidinium 62.5 mcg-vilanterol 1 ea inhalation QDAY #60 ea 10/28/23 Unknown Rx 25 mcg/actuation powdr for inhalation (Anoro Ellipta) furosemide 20 mg tablet 40 mg PO QDAY 11/08/23 Unknown History Allergy/AdvReac Type Severity Reaction Status Date / Time shellfish derived Allergy Severe Other Verified 10/28/23 07:53 Penicillins AdvReac Severe Other Verified 10/28/23 07:53 lisinopril AdvReac Intermediate Other Verified 10/28/23 07:53 beclomethasone (From Qvar) AdvReac Mild Nausea Verified 10/28/23 07:53 Family History Father Heart disease Mother Heart disease Brother Heart disease Surgical History Hx of bilateral cataract extraction S/P cholecystectomy History of colonoscopy History of foot surgery History of total left knee replacement History of left-sided carotid endarterectomy (~11/10/15) Social History Smoking Status: Former smoker Tobacco: How many years used: 40 how long ago did patient quit smokin alcohol intake: current alcohol intake frequency: a few times a month substance use type: does not use caffeine: Yes (very little) ROS ROS ED ROS Narrative Constitutional: No fever, no chills. HEENT: No sore throat. No neck pain. No loss of vision. No rhinorrhea. Cardiovascular: No chest pain. No palpitations. Bilateral pedal edema. Respiratory: Occasionally productive cough, increasing shortness of breath. Abdominal: No abdominal pain. No nausea. No vomiting. Genitourinary: No dysuria. No hematuria. Musculoskeletal: No myalgias. No arthralgias. Neurologic: No headaches. No dizziness. No lightheadedness. Skin: No rash. No change in color. Psychiatric: No depression. No anxiety. EXAM Physical Exam Narrative Exam Narrative: Afebrile. Vital signs noted. HEENT: Normocephalic. Atraumatic. PERRL, EOMI. Neck soft and supple. No point tenderness or step off. Cardiovascular: Regular rate and rhythm. No murmurs, rubs, or gallops appreciated. Respiratory: Mild tachypnea. Decreased breath sounds bilateral bases. Moving a fair amount of air. No overt wheezing or stridor. Prolonged expiratory phase. Gastrointestinal: Abdomen soft, nontender, with normoactive bowel sounds. No rebound or guarding. Neurological: Awake. Alert. Nonfocal, nonlateralizing. Skin: No rash. Normal color. No pallor. Musculoskeletal: No pedal edema. Full range of motion extremities. Const Vital Signs: 11/10/23 10:30 11/10/23 10:35 11/10/23 10:42 Temperature 98.3 F 98.3 F Temperature Source Temporal Temporal Pulse Rate 88 88 Respiratory Rate 24 H 24 H Respiratory Effort Short of Breath Respiratory Pattern Tachypnea Blood Pressure 201/88 H 201/88 H Blood Pressure Mean 125 125 Pulse Ox 95 95 Oxygen Delivery Method Room Air Room Air Room Air Oxygen Flow Rate (L/min) 11/10/23 10:43 11/10/23 10:48 11/10/23 10:58 Temperature Temperature Source Pulse Rate 89 Respiratory Rate 20 H Respiratory Effort Respiratory Pattern Normal Blood Pressure Blood Pressure Mean Pulse Ox 93 98 Oxygen Delivery Method Nasal Cannula Nasal Cannula Oxygen Flow Rate (L/min) 3 3 11/10/23 11:27 11/10/23 11:45 11/10/23 11:56 Temperature Temperature Source Pulse Rate 81 84 80 Respiratory Rate 19 H 18 18 Respiratory Effort Respiratory Pattern Blood Pressure 132/82 H 142/85 H 143/88 H Blood Pressure Mean 98 104 106 Pulse Ox 98 98 98 Oxygen Delivery Method Nasal Cannula Nasal Cannula Nasal Cannula Oxygen Flow Rate (L/min) 3 3 3 11/10/23 13:00 Temperature 97.6 F L Temperature Source Temporal Pulse Rate 87 Respiratory Rate 21 H Respiratory Effort Respiratory Pattern Blood Pressure 150/87 H Blood Pressure Mean 108 Pulse Ox 94 Oxygen Delivery Method Nasal Cannula Oxygen Flow Rate (L/min) 3 MDM MDM MDM Narrative Medical decision making narrative: In the differential diagnosis is COPD exacerbation versus CHF versus a combination. Also in the differential would be pneumonia versus pneumothorax. History and physical does not necessarily support pneumothorax and possibly pneumonia but he has not had fever or yellow phlegm production. Comprehensive workup was pursued. He was given a DuoNeb aerosolized treatment and Solu-Medrol 125 mg intravenously. I do feel chest x-ray in 1 view is indicated along with basic laboratory work including CBC, CMP, troponin, and BNP, EKG was obtained and interpreted by myself as normal sinus rhythm at 83 bpm without ectopy or acute ST changes. No STEMI. I reviewed his laboratory work and he has normal white count of 10.8, his hemoglobin is low at 8.0 but I do not feel he requires transfusion. He was anemic a few days ago as well, but it has improved slightly. He has had significant drop from a hemoglobin of around 11, but this was in 2022, last year. Platelet count is elevated at 474 which I think is nonspecific may be acute phase reactant. Coagulation studies were negative with an INR of 1.2 and a PTT of 28.5. These were obtained because of an elevated troponin of 199. While this may be considered an NSTEMI, he does have a history of CKD with a creatinine today of 2.1. However, in comparison to prior laboratory values said troponins of the single digits with only slightly elevated creatinine. Patient was administered aspirin orally. Chest x-ray 1 view interpreted by myself independently shows mild CHF but no evidence of pneumonia or pneumothorax. I reviewed the radiology report which confirms my independent interpretation. Further review of his CMP shows slightly low sodium of 135. BUN of 24 and glucose of 126. His BNP is elevated above 400, but this appears to be his baseline. Given his elevated troponin and mild CHF, I discussed patient with Dr. Petersen, who will admit the patient to the PCU. The elevated troponin may be secondary to his CKD as he was not having chest pain so heparin was deferred in discussion with the hospitalist. Disposition is admit in stable condition. History & Record Review Discussion w/independent historian: Patient Additional record(s) reviewed:: Prior inpatient record (Echocardiogram from 2022 shows mild pulmonary hypertension with an ejection fraction of 60%.) and Prior ED visit Lab Data Attestation: I reviewed the patient's lab results. Labs: Laboratory Results - last 24 hr 11/10/23 10:45 WBC 10.6 RBC 3.28 L Hgb 8.0 L Hct 26.9 L MCV 82.0 MCH 24.4 L MCHC 29.7 L RDW Std Deviation 46.5 H RDW Coeff of Ambreen 15.6 H Plt Count 474 H MPV 8.7 Immature Gran % (Auto) 0.400 Neut % (Auto) 79.5 H Lymph % (Auto) 7.2 L [place] % (Auto) 9.5 Eos % (Auto) 2.4 Baso % (Auto) 1.0 Absolute Neuts (auto) 8.4 H Absolute Lymphs (auto) 0.76 L Nucleated RBC % 0 PT 15.0 H INR 1.2 APTT 28.5 Sodium 135 L Potassium 3.5 Chloride 103 Carbon Dioxide 27.0 Anion Gap 5 BUN 24 H Creatinine 2.19 H Estim Creat Clear Calc 40.77 Est GFR (MDRD) Af Amer 38 L Est GFR (MDRD) Non-Af 32 L BUN/Creatinine Ratio 11.0 Glucose 126 H Calcium 8.6 Total Bilirubin 0.50 AST 15 ALT 16 Alkaline Phosphatase 125 H Troponin I High Sens 199 H* B-Natriuretic Peptide 419.1 H Total Protein 7.9 Albumin 3.1 L Globulin 4.8 H Albumin/Globulin Ratio 0.6 L Radiography Chest X-Ray - ED: 1 View, Read by ED Physician and Read by Radiologist Diagnostic Testing: Clinical Impression(s) from Imaging Studies Chest X-Ray 11/10/23 11:20 IMPRESSION: Mild degree of CHF. There has been improvement as compared to prior study. Borderline cardiomegaly. Electronically Signed: Timothy Cruz MD at 12:12 EDT , Management Discussion w/another healthcare provider: Hospitalist (Dr. Gerardo) Discharge Plan Dx/Rx/DC Orders Clinical Impression: Non-ST elevation IL (NSTEMI), SOB (shortness of breath), CKD (chronic kidney disease), Anemia Disposition Disposition: Acute Care Hospital [facility]
[2023-11-10] MEDS: MethylPREDNISolone 125 MG/2 ML Vial IV (10:55)
[2023-11-10 10:56] LABS: Absolute Lymphocyte Count 0.76 X10^3/uL (0.83-4.51); Absolute Neutrophil Count 8.4 X10^3/uL (2.0-7.7); Basophil# 0.11 X10^3/uL; Eosinophil# 0.25 X10^3/uL; Eosinophils% 2.4 % (0-5); Hematocrit 26.9 % (40-54); Lymphocyte # 0.76 X10^3/ul (0.83-4.51); Lymphocyte % 7.2 % (19-41); Mean Corp Hgb Conc 29.7 g/dL (32-36); Mean Corpuscular Hgb 24.4 pg (27.0-32.0); Mean Platelet Vol. 8.7 fl (6.2-12.0); Monocyte# 1.01 X10^3/uL; Monocyte% 9.5 % (0-10); NRBC Flagged by Analyzer 0 % (0-5); Neutrophil # 8.42 X10^3/uL (2.7-7.7); Neutrophil % 79.5 % (47-70); Platelet Count 474 K/mm3 (150-450); RBC Distribution Width CV 15.6 % (11.6-14.6); RBC Distribution Width SD 46.5 fl (35.1-43.9); Red Blood Count 3.28 M/mm3 (4.6-6.2); White Blood Count 10.6 K/mm3 (4.4-11.0)
[2023-11-10] MEDS: Ipratropium/Albuterol Sulfate 3 ML AMPUL.NEB INHALATION ×2 (10:58→19:25)
--- NOTE | 2023-11-10 11:20 | RAD_ITS ---
STUDY: X-RAY CHEST REASON FOR EXAM: Male, 73 years old. Shortness of breath TECHNIQUE: Single AP portable view of the chest. COMPARISON: Comparison is made with prior study dated November 08, 2023. FINDINGS: EKG electrodes are seen. Increased bilateral interstitial markings slightly improved. Residual CHF persists. Blunting of both costophrenic angles. There is borderline cardiomegaly. Normal mediastinum and gabriela. Normal visualized pulmonary arteries. There is atherosclerotic calcification of the aortic arch with tortuosity. There are diffuse degenerative changes of the visualized thoracic spine. Normal visualized ribs, clavicles, and shoulders. Hiatal hernia. RAD/Chest 1 View (Portable) IMPRESSION: Mild degree of CHF. There has been improvement as compared to prior study. Borderline cardiomegaly. Electronically Signed: Timothy Cruz MD at 12:12 EDT ,
[2023-11-10 11:25] LABS: BNP,B-Type NATRIURETIC PEPTIDE 419.1 pg/mL (0-100)
--- NOTE | 2023-11-10 12:15 | ED.RN ---
This RN called lab to inquire about delay in CMP and trop result. Lab stated they were training an they are still working on it.
[2023-11-10 12:34] LABS: ALB/GLOB Ratio 0.6 RATIO (0.9-2.4); AST(SGOT) 15 U/L (15-37); Alanine Aminotransfer ALT/SGPT 16 U/L (16-61); Albumin, Serum 3.1 g/dL (3.2-5.0); Alkaline Phosphatase 125 U/L (45-117); Anion Gap 5 (5-15); BUN 24 mg/dL (7-18); Calcium,Total 8.6 mg/dL (8.5-10.1); Chloride 103 mmol/L (98-107); Creatinine, Serum 2.19 mg/dL (0.70-1.30); EST Glomerular Filtration Rate 32 mL/min (>60); Est Glom Filt Rate - Afr Amer 38 mL/min (>60); Estimated Creatinine Clearance 40.77 ml/min; Globulin 4.8 g/dL (2.2-4.2); Glucose 126 mg/dL (74-106); Potassium 3.5 mmol/L (3.5-5.1); Protein, Total 7.9 g/dL (6.4-8.2); Sodium Level 135 mmol/L (136-145); Troponin-I HS 199 pg/mL (3.0-78.0)
--- NOTE | 2023-11-10 12:40 | ED.RN ---
Dr. Evelyn palmer notified of critical trop of 199
[2023-11-10] MEDS: Aspirin 81 MG TAB.CHEW 324 MG PO (12:48)
[2023-11-10 12:58] LABS: International Normalized Ratio 1.2
[2023-11-10 12:59] LABS: Partial Thromboplast Time 28.5 Seconds (24.1-36.2)
--- NOTE | 2023-11-10 13:22 | CT_ITS ---
STUDY: CTA CHEST REASON FOR EXAM: Male, 73 years old. Back pain, r/o aortic dissection RADIATION DOSAGE (If Supplied By Facility): CTDIvol = ( 11.47 ) mGy, DLP = ( 525.90 ) mGycm TECHNIQUE: The examination was performed with the intravenous administration of IV 100mL Isovue-370. Post-processing of the angiographic images was performed, with multiplanar reformation and 3D reconstruction. Individualized dose optimization techniques were used for this CT. COMPARISON: Comparison is made with prior examination dated March 29, 2020. FINDINGS: Normal enhancement of the main pulmonary artery and right and left pulmonary arteries. Normal enhancement of the bilateral peripheral pulmonary arteries. There is no demonstrated pulmonary embolism. There is atherosclerotic calcification of the aortic arch with tortuosity. There is no demonstrated aortic dissection. There are calcifications of the coronary arteries. Prior aortic valve replacement. There are visualized small mediastinal lymph nodes, which are within normal size limits, and with normal morphology. Normal hilar regions. Normal visualized trachea and bronchi. Bilateral pleural effusions with bibasilar pulmonary infiltrates slightly worse on the left side. Increased interstitial markings. An element of CHF should be ruled out. Calcified granuloma in the right middle lobe. Normal pleura. Normal chest wall structures. There are degenerative changes of thoracic spine. Normal visualized upper abdomen. CT/CTA Chest W/WO Contrast IMPRESSION: Bilateral pleural effusions with bibasilar pulmonary infiltration and/or atelectasis. Mild degree of CHF. Electronically Signed: Timothy Cruz MD at 14:37 EDT ,
[2023-11-10] MEDS: Furosemide 20 MG/2 ML VIAL IV ×2 (13:26→21:43)
--- NOTE | 2023-11-10 13:28 | EKG12_ITS ---
Test Reason : Blood Pressure : / mmHG Vent. Rate : 113 BPM Atrial Rate : 113 BPM P-R Int : 094 ms QRS Dur : 074 ms QT Int : 334 ms P-R-T Axes : -11 030 023 degrees QTc Int : 458 ms Sinus tachycardia with short AL with Premature supraventricular complexes Confirmed by CLIFF RODRIGUEZ, JARRETT ([id number]), editor city ALISSA PÉREZ ([id number]) on 11/15/2023 11:35:33 AM Referred By: ANDRESSA Confirmed By:JARRETT CORONADO MD
--- NOTE | 2023-11-10 13:28 | EKG12_ITS ---
Test Reason : REPEAT Blood Pressure : / mmHG Vent. Rate : 099 BPM Atrial Rate : 099 BPM P-R Int : 142 ms QRS Dur : 084 ms QT Int : 392 ms P-R-T Axes : 026 023 061 degrees QTc Int : 503 ms Normal sinus rhythm Possible Inferior infarct , age undetermined Confirmed by CLIFF RODRIGUEZ, JARRETT ([id number]), newspaper or periodical editor ALISSA PÉREZ ([id number]) on 11/15/2023 11:35:11 AM Referred By: Confirmed By:JARRETT CORONADO MD
[2023-11-10] MEDS: Morphine 4 MG/ML Syringe IV (13:44)
--- NOTE | 2023-11-10 15:14 | ECHOCS_ITS ---
Reason For Study: DYSPNEA Procedure This was a 2D Doppler, Color Flow transthoracic echocardiogram. The study was technically difficult. Contrast injection was performed. Exam performed portable in patient room. Left Ventricle Normal LV size. Left ventricular systolic function is normal. Stage 1 diastolic dysfunction. The left ventricular ejection fraction is 60 %. No regional wall motion abnormalities noted. Right Ventricle Normal RV size. Normal systolic function. Atria Normal left atrium. Normal right atrium. Mitral Valve Normal mitral valve. Tricuspid Valve Normal tricuspid valve. Mild to moderate (1-2+) tricuspid valve insufficiency. Pulmonary artery systolic pressure is 40 mmHg. Great Vessels Normal aortic root. The pulmonary artery is normal size. Normal inferior vena cava. Pericardium/Pleural No pericardial effusion. Medication Diluted definity 2.5ml given slow IV push to enhance endocardial definition. MMode/2D Measurements & Calculations RVDd: 3.7 cm LVOT diam: 2.0 cm Ao root diam: 3.4 cm LVOT area: 3.2 cm2 LAV(MOD-bp): 81.2 ml LVAd ap4: 39.8 cm2 LVAd ap2: 32.2 cm2 LAV(MOD-bp) Indexed: 33.3 ml/m2 LVLd ap4: 9.5 cm LVLd ap2: 8.7 cm LAV(MOD-sp2): 114.6 ml EDV(MOD-sp4): 133.9 ml EDV(MOD-sp2): 95.4 ml LAV(MOD-sp4): 56.6 ml EDV(sp4-el): 142.0 ml EDV(sp2-el): 101.4 ml LVAs ap4: 22.8 cm2 LVAs ap2: 19.7 cm2 LVLs ap4: 8.7 cm LVLs ap2: 7.5 cm ESV(MOD-sp4): 48.3 ml ESV(MOD-sp2): 42.8 ml ESV(sp4-el): 51.0 ml ESV(sp2-el): 43.7 ml EF(MOD-sp4): 63.9 % EF(MOD-sp2): 55.1 % EF(sp4-el): 64.1 % SV(MOD-sp4): 85.6 ml SV(MOD-sp2): 52.6 ml SV(sp4-el): 91.0 ml LA A4 area: 21.9 cm2 LA dimension(2D): 5.1 cm RA A4 area: 19.6 cm2 TAPSE: 2.2 cm Doppler Measurements & Calculations Lat Peak E' Bola: 11.2 cm/sec Med Peak E' Bola: 7.4 cm/sec MV V2 max: 174.9 cm/sec MV max P.2 mmHg MV V2 mean: 118.5 cm/sec MV mean P.0 mmHg MV V2 VTI: 35.4 cm MVA(VTI): 2.3 cm2 Ao V2 max: 235.3 cm/sec LV V1 max: 97.4 cm/sec SV(LVOT): 82.5 ml Ao max P.2 mmHg LV V1 max P.8 mmHg Ao V2 mean: 178.0 cm/sec LV V1 mean P.2 mmHg Ao mean P.6 mmHg LV V1 mean: 70.5 cm/sec Ao V2 VTI: 56.1 cm LV V1 VTI: 26.0 cm AV (velocity ratio): 0.46 NOA(I,D): 1.5 cm2 NOA(V,D): 1.3 cm2 PA V2 max: 77.6 cm/sec TR max bola: 298.1 cm/sec TR max P.5 mmHg ECHO/Echo Complete W/ Contrast Interpretation Summary Normal LV size. Left ventricular systolic function is normal. Stage 1 diastolic dysfunction. The left ventricular ejection fraction is 60 %. Contrast injection was performed. Ordering Physician: Tacos Gerardo Referring Physician: Tacos Sutton Performed By: Kika Freed RDCS and Student
[2023-11-10 17:19] LABS: Troponin-I HS 202 pg/mL (3.0-78.0)
[2023-11-10] MEDS: Potassium Chloride Oral Tablet 20 MEQ PO (17:27)
--- NOTE | 2023-11-10 17:57 | PCM.HP.STD ---
HPI - General General Date of Admission: 11/10/23 Date of Service: 11/10/23 Chief Complaint: Shortness of breath HPI Narrative EDIL DONALDSON, is a 73 M who presents to the emergency room at [facility] after being sent from his PCPs office due to shortness of breath and hypoxia. Patient states he wears oxygen at night to help him sleep due to sleep apnea, over the last few weeks he has had increasing dyspnea. Patient is an ex-smoker, he has not smoked since 2005. The report the emergency room received was that the patient's pulse ox was in the 60s on room air at his primary care's office. Workup in the emergency room included a CBC which showed normal white blood cell count, hemoglobin was 8, patient's chemistry panel was remarkable for creatinine of 2.19 and a BUN of 24. Patient's troponin was 199, his beta natruretic peptide was 419. Patient's EKG showed no evidence of ischemic changes. Chest x-ray showed mild degree of CHF, patient also had a CTA of the chest performed due to complaints of mid back pain in the thoracic area and increased shortness of breath while in the emergency room, CT of the chest did not show any evidence of pulmonary embolism or aortic dissection, there was noted to be pulmonary congestion. Patient will be admitted to PCU for acute CHF, echocardiogram will be ordered, patient will be given IV Lasix and labs will be monitored. Patient also has an anemia which is unexplained, I will place him on a PPI and he will ultimately need to undergo endoscopic procedures to verify he does not have any GI pathology. I will recheck patient's CBC tomorrow morning. I feel the patient's troponin is elevated due to demand ischemia, I do not feel the patient has had a type II SD. [facility] Medical History Daytime hypersomnia Morbid obesity Carotid artery disease Paroxysmal atrial fibrillation Atrial fibrillation CAD (coronary artery disease) Dyspnea on exertion Melanoma in situ Gallstones Hypertension MADI (acute kidney injury) Syncope and collapse COVID-19 SARS pneumonia Home Medications ?Medication ?Instructions ?Recorded ?Last Taken ?Type amlodipine 10 mg tablet 10 mg PO DAILY bp 03/29/20 11/10/23 History vitamin E mixed 400 unit tablet 400 unit PO DAILY 08/14/22 11/10/23 History psyllium husk 0.4 gram capsule 0.4 g PO BID 08/24/22 11/10/23 History (Metamucil) metoprolol succinate 25 mg 25 mg PO DAILY #90 tabs 02/08/23 11/10/23 Rx tablet,extended release 24 hr albuterol sulfate 90 mcg/actuation inhalation 10/28/23 Unknown History aerosol inhaler aspirin 81 mg tablet,delayed 81 mg PO DAILY 10/28/23 11/10/23 History release potassium chloride 10 mEq 10 meq PO BID 10/28/23 Unknown History tablet,extended release umeclidinium 62.5 mcg-vilanterol 1 ea inhalation QDAY #60 ea 10/28/23 11/10/23 Rx 25 mcg/actuation powdr for inhalation (Anoro Ellipta) furosemide 20 mg tablet 40 mg PO QDAY 11/08/23 Unknown History Allergy/AdvReac Type Severity Reaction Status Date / Time shellfish derived Allergy Severe Other Verified 10/28/23 07:53 Penicillins AdvReac Severe Other Verified 10/28/23 07:53 lisinopril AdvReac Intermediate Other Verified 10/28/23 07:53 beclomethasone (From Qvar) AdvReac Mild Nausea Verified 10/28/23 07:53 Family History Father Heart disease Mother Heart disease Brother Heart disease Surgical History Hx of bilateral cataract extraction S/P cholecystectomy History of colonoscopy History of foot surgery History of total left knee replacement History of left-sided carotid endarterectomy (~11/10/15) Social History Smoking Status: Former smoker Tobacco: How many years used: 40 how long ago did patient quit smokin alcohol intake: current alcohol intake frequency: a few times a month substance use type: does not use caffeine: Yes (very little) ROS Constitutional Constitutional: Reports fatigue; Denies anorexia, change in weight, chills, fever(s), night sweats or weakness Eyes Eyes: Denies blurry vision, change in vision, discharge from eye(s) or eye pain Cardiovascular Cardiovascular: Reports dyspnea on exertion; Denies chest pain, claudication, edema or palpitations Respiratory/Chest Respiratory/Chest: Reports shortness of breath at rest and shortness of breath with exertion; Denies cough or hemoptysis Gastrointestinal Gastrointestinal: Denies abdominal pain, constipation, diarrhea, hematemesis, hematochezia, melena, nausea or vomiting Genitourinary Genitourinary: Denies dysuria, hematuria, urinary frequency, urinary hesitancy, urinary incontinence or urinary urgency Musculoskeletal Musculoskeletal: Denies back pain, joint pain, joint stiffness, joint swelling, myalgias or neck pain Neurologic Neurologic: Denies abnormal gait, abnormal speech, dizziness, focal weakness, headache(s), loss of vision, numbness, other visual disturbances, paresthesias, syncope or tingling Psychiatric Psychiatric: Denies anxiety, cognitive impairment, depression, irritability, mood swings or suicidal ideation Endocrine Endocrinology: Denies change in body appearance, cold intolerance, excessive sweating, heat intolerance, polydipsia or polyuria Hematologic/Lymphatic Hematologic/Lymphatic: Denies none, anemia, easy bleeding, easy bruising or lymphadenopathy Allergic/Immunologic Allergic/Immunologic: Denies rhinitis, urticaria, eczemia or asthma Vital Signs Vital Signs Vital Signs: 11/10/23 10:30 11/10/23 10:35 11/10/23 10:42 Temperature 98.3 F 98.3 F Temperature Source Temporal Temporal Pulse Rate 88 88 Respiratory Rate 24 H 24 H Respiratory Effort Short of Breath Respiratory Depth Respiratory Pattern Tachypnea Blood Pressure 201/88 H 201/88 H Blood Pressure Mean 125 125 Blood Pressure Source Blood Pressure Position Blood Pressure Location Pulse Ox 95 95 Oxygen Delivery Method Room Air Room Air Room Air Oxygen Flow Rate (L/min) 11/10/23 10:43 11/10/23 10:48 11/10/23 10:58 Temperature Temperature Source Pulse Rate 89 Respiratory Rate 20 H Respiratory Effort Respiratory Depth Respiratory Pattern Normal Blood Pressure Blood Pressure Mean Blood Pressure Source Blood Pressure Position Blood Pressure Location Pulse Ox 93 98 Oxygen Delivery Method Nasal Cannula Nasal Cannula Oxygen Flow Rate (L/min) 3 3 11/10/23 11:27 11/10/23 11:45 11/10/23 11:56 Temperature Temperature Source Pulse Rate 81 84 80 Respiratory Rate 19 H 18 18 Respiratory Effort Respiratory Depth Respiratory Pattern Blood Pressure 132/82 H 142/85 H 143/88 H Blood Pressure Mean 98 104 106 Blood Pressure Source Blood Pressure Position Blood Pressure Location Pulse Ox 98 98 98 Oxygen Delivery Method Nasal Cannula Nasal Cannula Nasal Cannula Oxygen Flow Rate (L/min) 3 3 3 11/10/23 13:00 11/10/23 13:31 11/10/23 13:31 Temperature 97.6 F L 98 F Temperature Source Temporal Oral Pulse Rate 87 88 88 Respiratory Rate 21 H 22 H 22 H Respiratory Effort Respiratory Depth Respiratory Pattern Blood Pressure 150/87 H 143/99 H 143/99 H Blood Pressure Mean 108 113 113 Blood Pressure Source Blood Pressure Position Blood Pressure Location Pulse Ox 94 97 97 Oxygen Delivery Method Nasal Cannula Nasal Cannula Nasal Cannula Oxygen Flow Rate (L/min) 3 6 6 11/10/23 13:32 11/10/23 15:00 11/10/23 15:29 Temperature 98.6 F 97.6 F L Temperature Source Oral Pulse Rate 88 87 Respiratory Rate 20 H 18 Respiratory Effort Normal Non-Labored Respiratory Depth Normal Respiratory Pattern Normal Blood Pressure 143/97 H 177/83 H Blood Pressure Mean 112 114 Blood Pressure Source Blood Pressure Position Blood Pressure Location Pulse Ox 97 96 Oxygen Delivery Method Nasal Cannula Nasal Cannula Oxygen Flow Rate (L/min) 3 3 11/10/23 16:15 Temperature Temperature Source Pulse Rate 87 Respiratory Rate Respiratory Effort Respiratory Depth Respiratory Pattern Blood Pressure 102/88 H Blood Pressure Mean 92 Blood Pressure Source Monitor Blood Pressure Position Supine Blood Pressure Location Right Arm Pulse Ox Oxygen Delivery Method Oxygen Flow Rate (L/min) Weight Weight: 133 kg Body Mass Index (BMI) 44.6 Physical Exam Const alert, oriented x3 and no apparent distress Constitutional Narrative: Patient is morbidly obese General Appearance: cooperative, well kempt and well developed Orientation / Consciousness: awake, oriented to person, oriented to place and oriented to time HEENT normocephalic, head/scalp atraumatic, hearing grossly normal bilaterally and moist oral mucous membranes Eyes PERRL, EOMs intact bilaterally and conjunctivae normal Neck supple, no JVD, thyroid normal and no carotid bruits General: trachea midline Resp normal respiratory effort, no retractions and no use of accessory muscles Resp Narrative: Patient appears comfortable on supplemental oxygen, auscultation of lungs reveals inspiratory rales scattered over both lung ortiz Auscultation: rales bilateral; Negative for rhonchi or wheezes Cardio regular rate, regular rhythm, S1 normal heart sound, S2 normal heart sound, no murmurs, no rub and no gallops GI normal to inspection, nondistended, normoactive bowel sounds, soft to palpation, non-tender and non-distended Extremity Extremity Narrative: Moderate bilateral lower extremity edema is noted in the lower legs Skin no rashes or lesions noted General Skin Exam: no breakdown Neuro oriented x3, CN's II-XII intact bilaterally, moves all extremities, no focal motor deficits and no sensory deficits noted Sensorium / Orientation: awake and alert Speech: speech normal Psych affect normal Results Lab / Micro Data 11/10/23 10:45 11/10/23 10:45 Labs: Laboratory Results - last 24 hr 11/10/23 10:45: WBC 10.6, RBC 3.28 L, Hgb 8.0 L, Hct 26.9 L, MCV 82.0, MCH 24.4 L, MCHC 29.7 L, RDW Std Deviation 46.5 H, RDW Coeff of Ambreen 15.6 H, Plt Count 474 H, MPV 8.7, Immature Gran % (Auto) 0.400, Neut % (Auto) 79.5 H, Lymph % (Auto) 7.2 L, Tillman % (Auto) 9.5, Eos % (Auto) 2.4, Baso % (Auto) 1.0, Absolute Neuts (auto) 8.4 H, Absolute Lymphs (auto) 0.76 L, Nucleated RBC % 0, PT 15.0 H, INR 1.2, APTT 28.5, Sodium 135 L, Potassium 3.5, Chloride 103, Carbon Dioxide 27.0, Anion Gap 5, BUN 24 H, Creatinine 2.19 H, Estim Creat Clear Calc 40.77, Est GFR (MDRD) Af Amer 38 L, Est GFR (MDRD) Non-Af 32 L, BUN/Creatinine Ratio 11.0, Glucose 126 H, Calcium 8.6, Total Bilirubin 0.50, AST 15, ALT 16, Alkaline Phosphatase 125 H, Troponin I High Sens 199 H*, B-Natriuretic Peptide 419.1 H, Total Protein 7.9, Albumin 3.1 L, Globulin 4.8 H, Albumin/Globulin Ratio 0.6 L 11/10/23 15:32: Troponin I High Sens 202 H* Imaging Radiology Impression Chest X-Ray 11/10/23 11:20 IMPRESSION: Mild degree of CHF. There has been improvement as compared to prior study. Borderline cardiomegaly. Electronically Signed: Timothy Cruz MD at 12:12 EDT , Chest CTA 11/10/23 13:22 IMPRESSION: Bilateral pleural effusions with bibasilar pulmonary infiltration and/or atelectasis. Mild degree of CHF. Electronically Signed: Timothy Cruz MD at 14:37 EDT , Echocardiogram 11/10/23 15:14 Interpretation Summary Normal LV size. Left ventricular systolic function is normal. Stage 1 diastolic dysfunction. The left ventricular ejection fraction is 60 %. Contrast injection was performed. Ordering Physician: Tacos Gerardo Referring Physician: Tacos Sutton Performed By: Kika Fered RDCS and Student Assessment & Plan Assessment/Plan (1) SOB (shortness of breath): PLAN: Plan 1. Acute congestive heart failure-exact type unknown at this time, patient will be admitted to PCU, IV Lasix will be administered, patient will have an echocardiogram done tomorrow, medications will be adjusted, labs will be monitored #2 hypoxia secondary to #1-pulse ox will be monitored #3 anemia-etiology unclear, I placed the patient on oral Protonix, he will need to undergo endoscopic procedures to rule out a GI issue, patient is not stable at this time to undergo a GI workup due to his heart failure. Labs will be monitored. I will get iron studies and ferritin #4 chronic kidney disease stage IIIb-complicates care, management, recovery, and prognosis #5 morbid obesity-complicates care, management, recovery, and prognosis #6 demand ischemia-patient's cardiac enzymes will be cycled, I do not believe he has had a type II SD #7 probable COPD-patient denies any history of COPD although he was using inhalers as an outpatient, he will need further workup as an outpatient. Total clinical time spent by myself addressing the patient's medical issues, reviewing all of the data, and collaborating with patient's care team: 75 minutes Charges/Coding Visit Charges Inpatient E&M: 71496 Init Hosp L3
[2023-11-10 19:26] LABS: Ferritin 37 ng/mL (26-388); Iron 22 ug/dL (65-175); Iron Binding Capacity,Total 453 ug/dL (250-450); PERCENT IRON SATURATION 4.9 % (15.0-55.0); Troponin-I HS 167 pg/mL (3.0-78.0)
[2023-11-10] MEDS: Pantoprazole Sodium 40 MG Tablet PO (21:43)
[2023-11-10] MEDS: Heparin Injection (Vial) 5,000 UNIT/ML VIAL 5000 UNIT SC (21:43)
[2023-11-11] VITALS (14 sets, daily range): BP systolic 109–176; BP diastolic 73–91; PULSE 85–124; RESP 14–18; TEMP 36.2–36.9; O2SAT 93–99
[2023-11-11] MEDS: Furosemide 20 MG/2 ML VIAL IV ×3 (06:03→21:48)
[2023-11-11] MEDS: Ipratropium/Albuterol Sulfate 3 ML AMPUL.NEB INHALATION ×2 (07:08→19:20)
[2023-11-11 07:11] LABS: Anion Gap 10 (5-15); BUN 33 mg/dL (7-18); BUN/Creat Ratio 14.6 RATIO (10-20); Calcium,Total 8.8 mg/dL (8.5-10.1); Chloride 101 mmol/L (98-107); Creatinine, Serum 2.26 mg/dL (0.70-1.30); EST Glomerular Filtration Rate 30 mL/min (>60); Est Glom Filt Rate - Afr Amer 37 mL/min (>60); Glucose 146 mg/dL (74-106); Potassium 3.6 mmol/L (3.5-5.1); Sodium Level 138 mmol/L (136-145)
[2023-11-11] MEDS: Aspirin E.C. 81 MG Tablet PO (09:29)
[2023-11-11] MEDS: Heparin Injection (Vial) 5,000 UNIT/ML VIAL 5000 UNIT SC ×2 (09:30→21:48)
[2023-11-11] MEDS: Metoprolol(XL)Succ 25 MG Tablet PO ×2 (09:30→12:10)
[2023-11-11] MEDS: amLODIPine 10 MG Tablet PO (09:30)
[2023-11-11] MEDS: Pantoprazole Sodium 40 MG Tablet PO ×2 (09:30→21:48)
[2023-11-11] MEDS: Potassium Chloride Oral Tablet 20 MEQ PO ×2 (09:30→18:01)
--- NOTE | 2023-11-11 11:16 | EKG12_ITS ---
Test Reason : AM EKG Blood Pressure : / mmHG Vent. Rate : 075 BPM Atrial Rate : 075 BPM P-R Int : 168 ms QRS Dur : 084 ms QT Int : 426 ms P-R-T Axes : 063 025 101 degrees QTc Int : 475 ms Sinus rhythm with Premature atrial complexes Nonspecific ST and T wave abnormality Abnormal ECG When compared with ECG of 11-NOV-2023 11:21, MANUAL COMPARISON REQUIRED, DATA IS UNCONFIRMED Confirmed by CLIFF RODRIGUEZ, JARRETT ([id number]), dictionary editor DEWEY MACHADO ([id number]) on 11/16/2023 9:26:33 AM Referred By: SMILEY Confirmed By:JARRETT CORONADO MD
--- NOTE | 2023-11-11 12:00 | CASEMGMT ---
PAWEL AVILA Assessment Face to Face with patient for initial transition planning/care coordination assessment. PAWEL AVILA introduced self and role at [facility], pt voices understanding. Pt is A&Ox4 and is resting comfortably in the chair and is calm. Care providers, pharmacy, and demographics verified. Admitting dx: CHF/ Elevated Troponin/ CKD PCP: Tacos Sutton Specialists: Denies. Pt given a list of resources Preferred Pharmacy: [facility] Insurance: AARBharati GAMBLE ADV, [employer] Prescription Benefit: Yes LNOK: Saundra Greeneyer (W) Living Arrangements: Pt lives with his in a 2 story condo with a flat entrance ADLs/IADLs: Ind Transportation: Self, DME: Shower chair. Raised toilet. Cane. FWW. Grab bars. Pt states that he has home oxygen through [facility]. Pt states that he only wears @ HS through his CPAP. E-Mail sent to [facility] to verify current Rx. Pt states that he has a concentrator as well as a pulse ox. Pt states that he does not have any portability. CM to follow. HHC/SNF: Denies history or needs Pt?s goal: Home Plan: Home no needs. Follow oxygen requirements. 6-Click is 23. No PT/OT ordered. Pt denies home going concerns. Pt denies the need for HHC or OP therapy and states that he feels safe at home with his . CM to follow. Linda Mendez RN, CM
[2023-11-11] MEDS: Sodium Ferric Gluconat/Sucrose 250 MG in 0.9% Normal Saline (250mL Bag) 250 ML 135 MG IV (12:11)
--- NOTE | 2023-11-11 14:24 | CHAPLAIN ---
Type of Pastoral Visit _x__ Initial Visit ___ Follow-up Visit ___ On-call Visit ___ General Patient Visit ___ Spiritual Assessment ___ Family Conference ___ Bereavement ___ Rapid Response ___ Code Blue ___ Other (describe below) Pastoral Care Referral From _x__ Patient ___ Family ___ Nurse ___ Physician ___ Senior Chemical Process Engineer ___ Enterprise Architect ___ Other (describe below) Sacrament/Intervention _x__ Active listening ___ Anointing ___ Tenriism ___ Bereavement ___ Communion ___ Bethany exploration ___ ___ Life review _x__ Prayer ___ Reconciliation ___ Sacrament of Sick _x__ Supportive presence ___ Wedding ___ Other (describe below) Pastoral Comments patient and spouse are in the room; pt talks about coming to the ED and how scared he was with the breathing difficulties; pt was glad to be admitted and received help for his now improved status; spouse also speaks of her fear at how the day went yesterday with 's inability to breath; pt is receiving treatment now and is happy about it; pt speaks of how he might have to say no' to requests for his work and care; pt welcomes a prayer for support
--- NOTE | 2023-11-11 16:54 | PN.HOSP_ITS ---
Reason for Visit Reason for Visit: Diagnoses Shortness of breath (11/10/23) Subjective Subjective Patient was seen and examined today, I had a long discussion with the patient and his , I had to repeat things many times to his to remind her of what I said. Patient's hemoglobin remained stable at this time, I talked with Dr. Gold by phone who stated that he would rather perform endoscopy as an outpatient on the patient in the last he had a bleeding episode. Patient's serum iron is low in the iron binding capacity is high, I elected to give the patient IV Venofer today, patient appears to be diuresing slowly, and may have to increase the patient's furosemide. Patient's creatinine bumped up slightly today, I will recheck it tomorrow Objective Data Objective Data Vital Signs: Vital Signs Temp Pulse Resp BP Pulse Ox O2 Del Method O2 Flow Rate 98.1 F 93 16 109/73 99 Nasal Cannula 3 11/11/23 14:12 11/11/23 14:12 11/11/23 14:12 11/11/23 14:12 11/11/23 14:12 11/11/23 15:57 11/11/23 15:57 Oxygen Flow Rate (L/min) 3 Oxygen Delivery Method Nasal Cannula Weight: 133 kg Body Mass Index (BMI) 44.6 Intake & Output: Intake and Output for Last 24 Hours 11/09/23 11/10/23 11/11/23 23:59 23:59 23:59 Intake Total 420 / 420 790 / 790 Output Total 250 / 250 350 / 350 Balance 170 / 170 440 / 440 Lab / Micro Data 11/10/23 10:45 11/11/23 05:30 Labs: Laboratory Results - last 24 hr 11/10/23 15:32: Troponin I High Sens 202 H* 11/10/23 18:30: Iron 22 L, TIBC 453 H, Iron Saturation 4.9 L, Ferritin 37, T roponin I High Sens 167 H* 11/11/23 05:30: Sodium 138, Potassium 3.6, Chloride 101, Carbon Dioxide 27.0, Anion Gap 10, BUN 33 H, Creatinine 2.26 H, Estim Creat Clear Calc 38.80, Est GFR (MDRD) Af Amer 37 L, Est GFR (MDRD) Non-Af 30 L, BUN/Creatinine Ratio 14.6, G lucose 146 H, Calcium 8.8 Physical Exam Narrative alert, oriented x3 and no apparent distress Constitutional Narrative: Patient is morbidly obese General Appearance: cooperative, well kempt and well developed Orientation / Consciousness: awake, oriented to person, oriented to place and oriented to time HEENT normocephalic, head/scalp atraumatic, hearing grossly normal bilaterally and moist oral mucous membranes Eyes PERRL, EOMs intact bilaterally and conjunctivae normal Neck supple, no JVD, thyroid normal and no carotid bruits General: trachea midline Resp normal respiratory effort, no retractions and no use of accessory muscles Resp Narrative: Patient appears comfortable on supplemental oxygen, auscultation of lungs reveals inspiratory rales scattered over both lung ortiz Auscultation: rales bilateral; Negative for rhonchi or wheezes Cardio regular rate, regular rhythm, S1 normal heart sound, S2 normal heart sound, no murmurs, no rub and no gallops GI normal to inspection, nondistended, normoactive bowel sounds, soft to palpation, non-tender and non-distended Extremity Extremity Narrative: Moderate bilateral lower extremity edema is noted in the lower legs Skin no rashes or lesions noted General Skin Exam: no breakdown Neuro oriented x3, CN's II-XII intact bilaterally, moves all extremities, no focal motor deficits and no sensory deficits noted Sensorium / Orientation: awake and alert Speech: speech normal Psych affect normal Assessment & Plan Assessment/Plan (1) SOB (shortness of breath): PLAN: Plan 1. Acute diastolic congestive heart failure-patient will remain on IV Lasix, I's and O's will be monitored #2 hypoxia secondary to #1-pulse ox will be monitored #3 anemia-etiology unclear, I placed the patient on oral Protonix, he will need to undergo endoscopic procedures to rule out a GI issue, unless the patient has a bleeding episode during his hospitalization, these test can be done as an outpatient. Patient was given an infusion of Venofer today. #4 chronic kidney disease stage IIIb-complicates care, management, recovery, and prognosis, labs will be monitored #5 morbid obesity-complicates care, management, recovery, and prognosis #6 demand ischemia secondary to hypoxia #7 probable COPD-patient denies any history of COPD although he was using inhalers as an outpatient, he will need further workup as an outpatient. #8 pulmonary hypertension-again patient is on IV Lasix Total clinical time spent by myself addressing the patient's medical issues, reviewing all of the data, and collaborating with patient's care team: 35 minutes Charges/Coding Visit Charges Inpatient E&M: 48745 Subs Hosp L2
--- NOTE | 2023-11-11 16:58 | CASEMGMT ---
Advance Directive Validation Received notice from validation of advance directive. Noted in chart that patient is indicated to have a living will but no power of corporate attorney. Met with patient to clarify. Patient's in the room, and patient open to social work having discussion. Patient reported belief to have at least one of the documents filled to for clarification. reports belief there is paperwork at home for both the power of corporate attorney for healthcare and living will. agrees to bring the paperwork in tomorrow 11/12/2023. Patient and expressed the directives may need to be updated. Left this race and sports book writer's contact information for the to call upon arrival to the hospital could help look over the paperwork with the patient and to determine whether would like the directives to be redone. Plan: Social work to follow for advance directive validation -CORDELIA Rowan, EBEN *This note was generated with OnLive dictation software. It may contain incorrect words, spelling, and punctuation that were not noted in review of the chart prior to signing*
[2023-11-11] MEDS: Psyllium 1 PACKET PO (21:48)
[2023-11-11] MEDS: Acetaminophen 325 MG Tablet 650 MG PO (22:04)
[2023-11-12] VITALS (9 sets, daily range): BP systolic 115–154; BP diastolic 77–95; PULSE 63–120; RESP 16–18; TEMP 35.9–36.8; O2SAT 94–99; BMI 44.7
[2023-11-12] MEDS: Furosemide 20 MG/2 ML VIAL IV (05:33)
[2023-11-12 05:57] LABS: Absolute Lymphocyte Count 0.89 X10^3/uL (0.83-4.51); Absolute Neutrophil Count 7.8 X10^3/uL (2.0-7.7); Basophil# 0.06 X10^3/uL; Basophil% 0.6 % (0-1); Eosinophil# 0.32 X10^3/uL; Eosinophils% 3.2 % (0-5); Hematocrit 23.3 % (40-54); Hemoglobin 6.9 g/dL (13.0-16.5); Lymphocyte # 0.89 X10^3/ul (0.83-4.51); Lymphocyte % 8.9 % (19-41); Mean Corp Hgb Conc 29.6 g/dL (32-36); Mean Corpuscular Hgb 24.6 pg (27.0-32.0); Mean Corpuscular Volume 82.9 fL (80-94); Mean Platelet Vol. 8.9 fl (6.2-12.0); Monocyte# 0.93 X10^3/uL; Monocyte% 9.3 % (0-10); NRBC Flagged by Analyzer 0 % (0-5); Neutrophil # 7.79 X10^3/uL (2.7-7.7); Neutrophil % 77.5 % (47-70); Platelet Count 414 K/mm3 (150-450); RBC Distribution Width CV 15.7 % (11.6-14.6); RBC Distribution Width SD 47.4 fl (35.1-43.9); Red Blood Count 2.81 M/mm3 (4.6-6.2)
[2023-11-12 06:42] LABS: Anion Gap 10 (5-15); BUN 35 mg/dL (7-18); BUN/Creat Ratio 14.8 RATIO (10-20); Calcium,Total 8.2 mg/dL (8.5-10.1); Chloride 102 mmol/L (98-107); Creatinine, Serum 2.37 mg/dL (0.70-1.30); EST Glomerular Filtration Rate 29 mL/min (>60); Est Glom Filt Rate - Afr Amer 35 mL/min (>60); Estimated Creatinine Clearance 37.07 ml/min; Glucose 108 mg/dL (74-106); Potassium 3.1 mmol/L (3.5-5.1); Sodium Level 140 mmol/L (136-145)
[2023-11-12] MEDS: Ipratropium/Albuterol Sulfate 3 ML AMPUL.NEB INHALATION (06:55)
[2023-11-12] MEDS: Pantoprazole Sodium 40 MG Tablet PO ×2 (08:29→21:46)
[2023-11-12] MEDS: Potassium Chloride Oral Tablet 20 MEQ PO ×2 (08:29→17:54)
[2023-11-12] MEDS: Aspirin E.C. 81 MG Tablet PO (08:29)
[2023-11-12] MEDS: Metoprolol(XL)Succ 50 MG Tablet PO ×2 (08:30→10:51)
[2023-11-12] MEDS: amLODIPine 10 MG Tablet PO (08:30)
[2023-11-12] MEDS: Psyllium 1 PACKET PO ×2 (08:30→21:45)
--- NOTE | 2023-11-12 10:23 | RAD_ITS ---
STUDY: X-RAY CHEST REASON FOR EXAM: Male, 73 years old. Hypoxia TECHNIQUE: PA and lateral views of the chest. COMPARISON: Comparison is made with prior study dated November 10, 2023. FINDINGS: EKG electrodes are seen. Mild degree of vascular congestion and CHF with bibasilar atelectasis. There is been essentially no change. There is blunting of both costophrenic angles. There is borderline cardiomegaly. Normal mediastinum and gabriela. Normal visualized pulmonary arteries. There is atherosclerotic calcification of the aortic arch with tortuosity. There are diffuse degenerative changes of the visualized thoracic spine. Normal visualized ribs, clavicles, and shoulders. There is no demonstrated abnormality of the visualized soft tissue structures of the upper abdomen. RAD/Chest PA and Lateral IMPRESSION: Vascular congestion and a mild degree of CHF with bibasilar atelectasis more prominent the left lung base. There has been essentially no change. Electronically Signed: Timothy Cruz MD at 14:15 EDT ,
[2023-11-12] MEDS: Sodium Ferric Gluconat/Sucrose 250 MG in 0.9% Normal Saline (250mL Bag) 250 ML 135 MG IV (10:46)
--- NOTE | 2023-11-12 12:43 | CON.PCM.SX_ITS ---
Assessment & Plan Assessment/Plan (1) Anemia: PLAN: The patient has iron deficiency anemia. He is being transfused today for this anemia and his hemoglobin dropped 1 g since yesterday. He is not having any gross blood in his stool or signs of overt bleeding. Plan for EGD and colonoscopy on Wednesday. Bowel prep over the weekend. I will order clear liquid diet to start tomorrow as he is constipated and this may take 2 days. I will order some Dulcolax for tomorrow and then a full bowel prep for Wednesday. N.p.o. after midnight Wednesday morning and plan for EGD and colonoscopy Wednesday at 11 I explained endoscopy in detail to the patient. I explained the risks including but not limited to stroke or heart attack with anesthesia, perforation of the GI tract, bleeding, infection. I explained that any of these could necessitate further emergency surgery. The patient understands and all questions were answered sufficiently. The patient wishes to proceed with procedure. Joseph Gold MD Pager: [facility] [address] [place] [address] [address] [place] [address] Office: HPI Consult Data Date of Consult: 11/12/23 HPI Narrative HPI Narrative: EDIL DONALDSON, is a 73 M who presents with CHF exacerbation. Patient was also found to have iron deficiency anemia. He denies abdominal pain or blood in the stool. He says he has been having constipation ever since he had gallbladder surgery. The patient's last EGD and colonoscopy were in 2020 and were normal. [facility] Medical History Daytime hypersomnia Morbid obesity Carotid artery disease Paroxysmal atrial fibrillation Atrial fibrillation CAD (coronary artery disease) Dyspnea on exertion Melanoma in situ Gallstones Hypertension MADI (acute kidney injury) Syncope and collapse COVID-19 SARS pneumonia Home Medications ?Medication ?Instructions ?Recorded ?Last Taken ?Type amlodipine 10 mg tablet 10 mg PO DAILY bp 03/29/20 11/10/23 History vitamin E mixed 400 unit tablet 400 unit PO DAILY suppliment 08/14/22 11/10/23 History psyllium husk 0.4 gram capsule 0.4 g PO BID constipation 08/24/22 11/10/23 History (Metamucil) metoprolol succinate 25 mg 25 mg PO DAILY heart #90 tabs 02/08/23 11/10/23 Rx tablet,extended release 24 hr albuterol sulfate 90 mcg/actuation 2 puff inhalation Q4H PRN sob 10/28/23 Unknown History aerosol inhaler aspirin 81 mg tablet,delayed 81 mg PO DAILY preventative 10/28/23 11/10/23 History release potassium chloride 10 mEq 10 meq PO BID suppliment 10/28/23 Unknown History tablet,extended release furosemide 20 mg tablet 40 mg PO DAILY diuretic 11/08/23 Unknown History umeclidinium 62.5 mcg-vilanterol 1 ea inhalation QDAY PRN sob 11/11/23 11/10/23 History 25 mcg/actuation powdr for inhalation (Anoro Ellipta) Allergy/AdvReac Type Severity Reaction Status Date / Time shellfish derived Allergy Severe Other Verified 10/28/23 07:53 Penicillins AdvReac Severe Other Verified 10/28/23 07:53 lisinopril AdvReac Intermediate Other Verified 10/28/23 07:53 beclomethasone (From Qvar) AdvReac Mild Nausea Verified 10/28/23 07:53 Family History Father Heart disease Mother Heart disease Brother Heart disease Surgical History Hx of bilateral cataract extraction S/P cholecystectomy History of colonoscopy History of foot surgery History of total left knee replacement History of left-sided carotid endarterectomy (~11/10/15) Social History Smoking Status: Former smoker Tobacco: How many years used: 40 how long ago did patient quit smokin alcohol intake: current alcohol intake frequency: a few times a month substance use type: does not use caffeine: Yes (very little) ROS Constitutional Constitutional: Denies anorexia, chills or fatigue Eyes Eyes: Denies blurry vision ENT HEENT: Denies abnormal hearing Cardiovascular Cardiovascular: Denies chest pain Respiratory/Chest Respiratory/Chest: Reports dyspnea Gastrointestinal Gastrointestinal: Reports constipation; Denies abdominal pain, diarrhea, melena, nausea, rectal bleeding or vomiting Genitourinary Genitourinary: Denies change in urinary stream Neurologic Neurologic: Denies abnormal gait Psychiatric Psychiatric: Denies anxiety Physical Exam Const alert and oriented x3 HEENT normocephalic Eyes PERRL Lymph Lymphatic: no lymphadenopathy noted Cardio Rate: regular rate Rhythm: regular rhythm GI normal to inspection, nondistended, normoactive bowel sounds Lab / Micro Data 11/12/23 05:16 11/12/23 05:16 Labs: Laboratory Results - last 24 hr 11/12/23 05:16: WBC 10.0, RBC 2.81 L, Hgb 6.9 L, Hct 23.3 L, MCV 82.9, MCH 24.6 L, MCHC 29.6 L, RDW Std Deviation 47.4 H, RDW Coeff of Ambreen 15.7 H, Plt Count 414, MPV 8.9, Immature Gran % (Auto) 0.500, Neut % (Auto) 77.5 H, Lymph % (Auto) 8.9 L, [place] % (Auto) 9.3, Eos % (Auto) 3.2, Baso % (Auto) 0.6, Absolute Neuts (auto) 7.8 H, Absolute Lymphs (auto) 0.89, Nucleated RBC % 0, Sodium 140, P otassium 3.1 L, Chloride 102, Carbon Dioxide 28.0, Anion Gap 10, BUN 35 H, C reatinine 2.37 H, Estim Creat Clear Calc 37.07, Est GFR (MDRD) Af Amer 35 L, Est GFR (MDRD) Non-Af 29 L, BUN/Creatinine Ratio 14.8, Glucose 108 H, Calcium 8.2 L 11/12/23 08:33: Blood Type O POSITIVE, Antibody Screen NEGATIVE, Crossmatch See Detail
--- NOTE | 2023-11-12 12:52 | PN.HOSP_ITS ---
Reason for Visit Reason for Visit: Diagnoses Anemia, unspecified (11/10/23) Shortness of breath (11/10/23) Subjective Subjective Patient was seen and examined today, he remains in atrial fibrillation, I increased his metoprolol today to bring his rate under better control. Patient does not seem to be diuresing very much, I increased his Lasix dosage to 40 mg every 8 hours. Patient's hemoglobin today was 6.9, I elected to give him 1 unit of packed red blood cells and I talked with general surgery about performing an upper and a lower endoscopy-they are able to do this on Wednesday, I told the patient he would need to remain in the hospital through the weekend. Objective Data Objective Data Vital Signs: Vital Signs Temp Pulse Resp BP Pulse Ox O2 Del Method O2 Flow Rate 97.8 F 97 17 128/91 H 99 Nasal Cannula 3 11/12/23 08:16 11/12/23 10:51 11/12/23 08:16 11/12/23 10:51 11/12/23 08:16 11/12/23 08:16 11/12/23 08:16 Oxygen Flow Rate (L/min) 3 Oxygen Delivery Method Nasal Cannula Weight: 133.4 kg Body Mass Index (BMI) 44.7 Intake & Output: Intake and Output for Last 24 Hours 11/10/23 11/11/23 11/12/23 23:59 23:59 23:59 Intake Total 420 / 420 1265 / 1565 650 / 650 Output Total 250 / 250 1000 / 1750 1400 / 1400 Balance 170 / 170 265 / -185 -750 / -750 Lab / Micro Data 11/12/23 05:16 11/12/23 05:16 Labs: Laboratory Results - last 24 hr 11/12/23 05:16: WBC 10.0, RBC 2.81 L, Hgb 6.9 L, Hct 23.3 L, MCV 82.9, MCH 24.6 L, MCHC 29.6 L, RDW Std Deviation 47.4 H, RDW Coeff of Ambreen 15.7 H, Plt Count 414, MPV 8.9, Immature Gran % (Auto) 0.500, Neut % (Auto) 77.5 H, Lymph % (Auto) 8.9 L, [place] % (Auto) 9.3, Eos % (Auto) 3.2, Baso % (Auto) 0.6, Absolute Neuts (auto) 7.8 H, Absolute Lymphs (auto) 0.89, Nucleated RBC % 0, Sodium 140, P otassium 3.1 L, Chloride 102, Carbon Dioxide 28.0, Anion Gap 10, BUN 35 H, C reatinine 2.37 H, Estim Creat Clear Calc 37.07, Est GFR (MDRD) Af Amer 35 L, Est GFR (MDRD) Non-Af 29 L, BUN/Creatinine Ratio 14.8, Glucose 108 H, Calcium 8.2 L 11/12/23 08:33: Blood Type O POSITIVE, Antibody Screen NEGATIVE, Crossmatch See Detail Physical Exam Narrative alert, oriented x3 and no apparent distress Constitutional Narrative: Patient is morbidly obese General Appearance: cooperative, well kempt and well developed Orientation / Consciousness: awake, oriented to person, oriented to place and oriented to time HEENT normocephalic, head/scalp atraumatic, hearing grossly normal bilaterally and moist oral mucous membranes Eyes PERRL, EOMs intact bilaterally and conjunctivae normal Neck supple, no JVD, thyroid normal and no carotid bruits General: trachea midline Resp normal respiratory effort, no retractions and no use of accessory muscles Resp Narrative: Patient appears comfortable on supplemental oxygen, auscultation of lungs reveals inspiratory rales scattered over both lung ortiz Auscultation: rales bilateral at the bases; Negative for rhonchi or wheezes Cardio irregular rate, irregular rhythm, S1 normal heart sound, S2 normal heart sound, no murmurs, no rub and no gallops GI normal to inspection, nondistended, normoactive bowel sounds, soft to palpation, non-tender and non-distended Extremity Extremity Narrative: Moderate bilateral lower extremity edema is noted in the lower legs Skin no rashes or lesions noted General Skin Exam: no breakdown Neuro oriented x3, CN's II-XII intact bilaterally, moves all extremities, no focal motor deficits and no sensory deficits noted Sensorium / Orientation: awake and alert Speech: speech normal Psych affect normal Assessment & Plan Assessment/Plan (1) Paroxysmal atrial fibrillation: (2) SOB (shortness of breath): PLAN: Plan 1. Acute diastolic congestive heart failure-patient will remain on IV Lasix, I's and O's will be monitored, I have elected to increase patient's Lasix to 40 mg every 8 hours #2 hypoxia secondary to #1-pulse ox will be monitored, oxygen will be weaned if possible #3 anemia-etiology unclear, I placed the patient on oral Protonix, he will need to undergo endoscopic procedures to rule out a GI issue, general surgery saw the patient today and the plan is for the patient undergo endoscopy on Wednesday. I give the patient 1 unit of packed red blood cells today, labs will be monitored #4 chronic kidney disease stage IIIb-complicates care, management, recovery, and prognosis, labs will be monitored #5 morbid obesity-complicates care, management, recovery, and prognosis #6 demand ischemia secondary to hypoxia #7 probable COPD-patient denies any history of COPD although he was using inhalers as an outpatient, he will need further workup as an outpatient. #8 pulmonary hypertension-again patient is on IV Lasix #9 hypokalemia-patient will be given additional potassium today Total clinical time spent by myself addressing the patient's medical issues, reviewing all of the data, and collaborating with patient's care team: 35 minutes Charges/Coding Visit Charges Inpatient E&M: 79892 Subs Hosp L2
--- NOTE | 2023-11-12 13:39 | CPS ---
Pt stated he is breathing fine. Said he didn't see the need for a treatment. Rt will check on pt later.
--- NOTE | 2023-11-12 14:32 | CASEMGMT ---
Care Mgmt. Copies of HC POA and Living Will placed on chart. Anastasiia Matthews DC Planning Asst.
[2023-11-12] MEDS: Furosemide 40 MG/4 ML Vial IV ×2 (14:39→21:45)
[2023-11-12] MEDS: 0.9% Saline Lock 10 ML Syringe IV ×2 (19:00→21:52)
[2023-11-12] MEDS: Acetaminophen 325 MG Tablet 650 MG PO (19:42)
[2023-11-13 05:04] VITALS: BMI 44.6
[2023-11-13] MEDS: Furosemide 40 MG/4 ML Vial IV (05:25)
[2023-11-13] MEDS: 0.9% Saline Lock 10 ML Syringe IV ×2 (05:25→21:17)
[2023-11-13 05:30] VITALS: BP 154/57; PULSE 71; RESP 18; TEMP 35.3; O2SAT 97
[2023-11-13 06:34] LABS: Absolute Neutrophil Count 7.2 X10^3/uL (2.0-7.7); Basophil# 0.09 X10^3/uL; Basophil% 0.9 % (0-1); Eosinophil# 0.55 X10^3/uL; Eosinophils% 5.5 % (0-5); Hematocrit 27.1 % (40-54); Hemoglobin 8.2 g/dL (13.0-16.5); Lymphocyte % 10.1 % (19-41); Mean Corp Hgb Conc 30.3 g/dL (32-36); Mean Corpuscular Hgb 25.2 pg (27.0-32.0); Mean Corpuscular Volume 83.1 fL (80-94); Mean Platelet Vol. 8.9 fl (6.2-12.0); Monocyte# 1.01 X10^3/uL; Monocyte% 10.2 % (0-10); NRBC Flagged by Analyzer 0.4 % (0-5); Neutrophil # 7.16 X10^3/uL (2.7-7.7); Neutrophil % 72.2 % (47-70); Platelet Count 448 K/mm3 (150-450); RBC Distribution Width CV 15.9 % (11.6-14.6); RBC Distribution Width SD 47.9 fl (35.1-43.9); Red Blood Count 3.26 M/mm3 (4.6-6.2); White Blood Count 9.9 K/mm3 (4.4-11.0)
[2023-11-13 06:49] LABS: Anion Gap 10 (5-15); BUN 34 mg/dL (7-18); BUN/Creat Ratio 13.3 RATIO (10-20); Calcium,Total 8.5 mg/dL (8.5-10.1); Chloride 102 mmol/L (98-107); Creatinine, Serum 2.55 mg/dL (0.70-1.30); EST Glomerular Filtration Rate 26 mL/min (>60); Est Glom Filt Rate - Afr Amer 32 mL/min (>60); Estimated Creatinine Clearance 34.39 ml/min; Glucose 110 mg/dL (74-106); Potassium 3.3 mmol/L (3.5-5.1); Sodium Level 141 mmol/L (136-145)
--- NOTE | 2023-11-13 07:21 | PN.SURG_ITS ---
Subjective Subjective Patient seen and examined during AM rounds. He is on the commode at the time of my visit. He denies any awareness of passage of any dark or bloody stools. He also denies any lightheadedness or weakness. Objective Data Objective Data Vital Signs: Vital Signs Temp Pulse Resp BP Pulse Ox O2 Del Method O2 Flow Rate 95.6 F L 71 18 154/57 H 97 CPAP 3 11/13/23 05:30 11/13/23 05:30 11/13/23 05:30 11/13/23 05:30 11/13/23 05:30 11/13/23 05:40 11/13/23 05:40 Oxygen Flow Rate (L/min) 3 Oxygen Delivery Method CPAP Weight: 293 lb 3.437 oz Body Mass Index (BMI) 44.6 Intake & Output: Intake and Output for Last 24 Hours 11/11/23 11/12/23 11/13/23 23:59 23:59 23:59 Intake Total 1265 / 1565 2141 / 2541 600 / 600 Output Total 1000 / 1750 3050 / 3050 1350 / 1350 Balance 265 / -185 -909 / -509 -750 / -750 Lab / Micro Data 11/13/23 05:51 11/13/23 05:51 Labs: Laboratory Results - last 24 hr 11/12/23 08:33: Blood Type O POSITIVE, Antibody Screen NEGATIVE, Crossmatch See Detail 11/13/23 05:51: WBC 9.9, RBC 3.26 L, Hgb 8.2 L, Hct 27.1 L, MCV 83.1, MCH 25.2 L , MCHC 30.3 L, RDW Std Deviation 47.9 H, RDW Coeff of Ambreen 15.9 H, Plt Count 448, MPV 8.9, Immature Gran % (Auto) 1.100 H, Neut % (Auto) 72.2 H, Lymph % (Auto) 10.1 L, [place] % (Auto) 10.2 H, Eos % (Auto) 5.5 H, Baso % (Auto) 0.9, Absolute Neuts (auto) 7.2, Absolute Lymphs (auto) 1.00, Nucleated RBC % 0.4, Sodium 141, Potassium 3.3 L, Chloride 102, Carbon Dioxide 29.0, Anion Gap 10, BUN 34 H, C reatinine 2.55 H, Estim Creat Clear Calc 34.39, Est GFR (MDRD) Af Amer 32 L, Est GFR (MDRD) Non-Af 26 L, BUN/Creatinine Ratio 13.3, Glucose 110 H, Calcium 8.5 Radiography Diagnostic Testing: Radiology Impression Chest X-Ray 11/12/23 10:23 IMPRESSION: Vascular congestion and a mild degree of CHF with bibasilar atelectasis more prominent the left lung base. There has been essentially no change. Electronically Signed: Timothy Cruz MD at 14:15 EDT , Physical Exam Const oriented x3 and no apparent distress Assessment & Plan Assessment/Plan (1) Anemia: PLAN: 73-year-old male with iron deficiency anemia. Appropriate response to transfusion yesterday. Denies evidence of further losses or symptoms of anemia. Hemodynamically stable per EMR. Plan for bowel prep tomorrow in anticipation of double endoscopy 11/15/[address] Gold. Victoriano Motley MD General Surgery Endocrine Surgery Pager: [facility] [address] [place] [address], [facility], [address] [place] [address] Office: [phone]
[2023-11-13 07:22] VITALS: O2SAT 95
[2023-11-13] MEDS: Potassium Chloride Oral Tablet 20 MEQ PO ×2 (08:38→16:56)
[2023-11-13 08:39] VITALS: PULSE 77
[2023-11-13] MEDS: Aspirin E.C. 81 MG Tablet PO (08:39)
[2023-11-13] MEDS: Psyllium 1 PACKET PO ×2 (08:39→21:16)
[2023-11-13] MEDS: Pantoprazole Sodium 40 MG Tablet PO ×2 (08:39→21:16)
[2023-11-13] MEDS: Metoprolol(XL)Succ 100 MG Tablet PO (08:39)
[2023-11-13] MEDS: amLODIPine 10 MG Tablet PO (08:40)
[2023-11-13 10:14] VITALS: BP 137/76; PULSE 75; RESP 16; TEMP 36.7; O2SAT 96
--- NOTE | 2023-11-13 13:08 | PCM.PN.HOSP ---
Reason for Visit Reason for Visit: Diagnoses Anemia, unspecified (11/10/23) Paroxysmal atrial fibrillation (11/10/23) Shortness of breath (11/10/23) Subjective Subjective Patient was seen and examined today, he is currently on room air. Patient's hemoglobin appears to be stable, creatinine has risen slightly and I have elected to cut down on the patient's Lasix dosage. Patient is now in sinus rhythm today. Objective Data Objective Data Vital Signs: Vital Signs Temp Pulse Resp BP Pulse Ox O2 Del Method O2 Flow Rate 98.0 F 75 16 137/76 H 96 Room Air 3 11/13/23 10:14 11/13/23 10:14 11/13/23 10:14 11/13/23 10:14 11/13/23 10:14 11/13/23 10:14 11/13/23 07:22 Oxygen Flow Rate (L/min) 3 Oxygen Delivery Method Room Air Weight: 133 kg Body Mass Index (BMI) 44.6 Intake & Output: Intake and Output for Last 24 Hours 11/11/23 11/12/23 11/13/23 23:59 23:59 23:59 Intake Total 1265 / 1565 2141 / 2541 1150 / 1150 Output Total 1000 / 1750 3050 / 3050 1350 / 1350 Balance 265 / -185 -909 / -509 -200 / -200 Lab / Micro Data 11/13/23 05:51 11/13/23 05:51 Labs: Laboratory Results - last 24 hr 11/12/23 08:33: Blood Type O POSITIVE, Antibody Screen NEGATIVE, Crossmatch See Detail 11/13/23 05:51: WBC 9.9, RBC 3.26 L, Hgb 8.2 L, Hct 27.1 L, MCV 83.1, MCH 25.2 L, MCHC 30.3 L, RDW Std Deviation 47.9 H, RDW Coeff of Ambreen 15.9 H, Plt Count 448, MPV 8.9, Immature Gran % (Auto) 1.100 H, Neut % (Auto) 72.2 H, Lymph % (Auto) 10.1 L, [place] % (Auto) 10.2 H, Eos % (Auto) 5.5 H, Baso % (Auto) 0.9, Absolute Neuts (auto) 7.2, Absolute Lymphs (auto) 1.00, Nucleated RBC % 0.4, Sodium 141, Potassium 3.3 L, Chloride 102, Carbon Dioxide 29.0, Anion Gap 10, BUN 34 H, Creatinine 2.55 H, Estim Creat Clear Calc 34.39, Est GFR (MDRD) Af Amer 32 L, Est GFR (MDRD) Non-Af 26 L, BUN/Creatinine Ratio 13.3, Glucose 110 H, Calcium 8.5 Radiography Diagnostic Testing: Radiology Impression Chest X-Ray 11/12/23 10:23 IMPRESSION: Vascular congestion and a mild degree of CHF with bibasilar atelectasis more prominent the left lung base. There has been essentially no change. Electronically Signed: Timothy Cruz MD at 14:15 EDT , Physical Exam Const alert, oriented x3, no apparent distress and healthy appearing General Appearance: cooperative, well kempt and well developed Orientation / Consciousness: awake, oriented to person, oriented to place and oriented to time HEENT normocephalic and moist oral mucous membranes Eyes PERRL, EOMs intact bilaterally and conjunctivae normal Neck supple, no JVD, thyroid normal and no carotid bruits General: trachea midline Resp normal respiratory effort, no retractions and no use of accessory muscles Resp Narrative: Breath sounds are diminished bilaterally Auscultation: Negative for rales, rhonchi or wheezes Cardio regular rate, regular rhythm, S1 normal heart sound, S2 normal heart sound, no murmurs, no rub and no gallops GI normal to inspection, nondistended, normoactive bowel sounds, soft to palpation, non-tender and non-distended Extremity no clubbing, cyanosis or edema Skin no rashes or lesions noted General Skin Exam: no breakdown Neuro oriented x3, CN's II-XII intact bilaterally, moves all extremities, no focal motor deficits and no sensory deficits noted Sensorium / Orientation: awake and alert Speech: speech normal Psych affect normal Assessment & Plan Assessment/Plan (1) CKD (chronic kidney disease): (2) Paroxysmal atrial fibrillation: (3) SOB (shortness of breath): PLAN: Plan 1. Acute diastolic congestive heart failure-patient will remain on IV Lasix-I have lowered his dose, I's and O's will be monitored #2 hypoxia secondary to #1-resolved at this time #3 anemia-etiology unclear, I placed the patient on oral Protonix, he will need to undergo endoscopic procedures to rule out a GI issue, general surgery will be performing endoscopy on him Wednesday, repeat CBC tomorrow #4 chronic kidney disease stage IIIb-complicates care, management, recovery, and prognosis, labs will be monitored #5 morbid obesity-complicates care, management, recovery, and prognosis #6 demand ischemia secondary to hypoxia #7 probable COPD-patient denies any history of COPD although he was using inhalers as an outpatient, he will need further workup as an outpatient. #8 pulmonary hypertension-again patient is on IV Lasix #9 hypokalemia-patient will be given additional potassium today Total clinical time spent by myself addressing the patient's medical issues, reviewing all of the data, and collaborating with patient's care team: 35 minutes Charges/Coding Visit Charges Inpatient E&M: 49041 Subs Hosp L2
[2023-11-13] MEDS: Potassium Chloride Oral Tablet 20 MEQ 40 MEQ PO (15:22)
[2023-11-13 16:01] VITALS: BP 136/81; PULSE 80; RESP 16; TEMP 36.6; O2SAT 98
[2023-11-13] MEDS: Furosemide 20 MG/2 ML VIAL IV (16:57)
[2023-11-13 21:03] VITALS: BP 147/86; PULSE 78; RESP 16; TEMP 36.1; O2SAT 98
[2023-11-14 03:03] VITALS: BP 133/74; PULSE 82; RESP 16; TEMP 36.6; O2SAT 97
[2023-11-14 06:16] LABS: Absolute Lymphocyte Count 0.79 X10^3/uL (0.83-4.51); Absolute Neutrophil Count 6.4 X10^3/uL (2.0-7.7); Basophil# 0.09 X10^3/uL; Eosinophils% 6.9 % (0-5); Hematocrit 25.8 % (40-54); Hemoglobin 7.8 g/dL (13.0-16.5); Lymphocyte # 0.79 X10^3/ul (0.83-4.51); Lymphocyte % 9.1 % (19-41); Mean Corp Hgb Conc 30.2 g/dL (32-36); Mean Corpuscular Hgb 25.2 pg (27.0-32.0); Mean Corpuscular Volume 83.5 fL (80-94); Mean Platelet Vol. 8.8 fl (6.2-12.0); Monocyte% 9.2 % (0-10); NRBC Flagged by Analyzer 0.2 % (0-5); Neutrophil # 6.39 X10^3/uL (2.7-7.7); Neutrophil % 73.2 % (47-70); Platelet Count 394 K/mm3 (150-450); RBC Distribution Width CV 16.2 % (11.6-14.6); RBC Distribution Width SD 48.6 fl (35.1-43.9); Red Blood Count 3.09 M/mm3 (4.6-6.2); White Blood Count 8.7 K/mm3 (4.4-11.0)
[2023-11-14 06:28] LABS: Anion Gap 6 (5-15); BUN 27 mg/dL (7-18); BUN/Creat Ratio 11.7 RATIO (10-20); Calcium,Total 8.7 mg/dL (8.5-10.1); Chloride 101 mmol/L (98-107); EST Glomerular Filtration Rate 30 mL/min (>60); Est Glom Filt Rate - Afr Amer 36 mL/min (>60); Estimated Creatinine Clearance 38.13 ml/min; Glucose 101 mg/dL (74-106); Potassium 3.3 mmol/L (3.5-5.1); Sodium Level 137 mmol/L (136-145)
[2023-11-14 06:44] VITALS: BMI 44.3
[2023-11-14 07:15] VITALS: O2SAT 91
[2023-11-14 09:53] VITALS: BP 165/74; PULSE 72; RESP 16; TEMP 36.4; O2SAT 95
[2023-11-14 09:56] VITALS: BP 165/74; PULSE 72
[2023-11-14] MEDS: amLODIPine 10 MG Tablet PO (09:56)
[2023-11-14] MEDS: Psyllium 1 PACKET PO (09:56)
[2023-11-14] MEDS: Potassium Chloride Oral Tablet 20 MEQ PO ×2 (09:56→17:45)
[2023-11-14] MEDS: Pantoprazole Sodium 40 MG Tablet PO ×2 (09:56→21:12)
[2023-11-14] MEDS: Metoprolol(XL)Succ 100 MG Tablet PO (09:56)
[2023-11-14] MEDS: Potassium Chloride Oral Tablet 20 MEQ 40 MEQ PO (09:56)
[2023-11-14] MEDS: Furosemide 20 MG/2 ML VIAL IV (09:57)
[2023-11-14] MEDS: Aspirin E.C. 81 MG Tablet PO (09:57)
--- NOTE | 2023-11-14 15:20 | PN.HOSP_ITS ---
Reason for Visit Reason for Visit: Diagnoses Anemia, unspecified (11/10/23) Paroxysmal atrial fibrillation (11/10/23) Chronic kidney disease, unspecified (11/10/23) Shortness of breath (11/10/23) Subjective Subjective Patient was seen and examined today, he is on room air, he remains in sinus rhythm at this time. Patient will be undergoing a colonoscopy and EGD tomorrow. Hemoglobin today was 7.8, creatinine was 2.3. I talked with his who was in the room at the time my examination Objective Data Objective Data Vital Signs: Vital Signs Temp Pulse Resp BP Pulse Ox O2 Del Method O2 Flow Rate 97.5 F L 72 16 165/74 H 95 Room Air 3 11/14/23 09:53 11/14/23 09:56 11/14/23 09:53 11/14/23 09:56 11/14/23 09:53 11/14/23 09:53 11/14/23 03:01 Oxygen Flow Rate (L/min) 3 Oxygen Delivery Method Room Air Weight: 132.2 kg Body Mass Index (BMI) 44.3 Intake & Output: Intake and Output for Last 24 Hours 11/12/23 11/13/23 11/14/23 23:59 23:59 23:59 Intake Total 2141 / 2541 1950 / 1950 Output Total 3050 / 3050 1350 / 1350 Balance -909 / -509 600 / 600 Lab / Micro Data 11/14/23 05:33 11/14/23 05:33 Labs: Laboratory Results - last 24 hr 11/14/23 05:33: WBC 8.7, RBC 3.09 L, Hgb 7.8 L, Hct 25.8 L, MCV 83.5, MCH 25.2 L , MCHC 30.2 L, RDW Std Deviation 48.6 H, RDW Coeff of Ambreen 16.2 H, Plt Count 394, MPV 8.8, Immature Gran % (Auto) 0.600, Neut % (Auto) 73.2 H, Lymph % (Auto) 9.1 L, [place] % (Auto) 9.2, Eos % (Auto) 6.9 H, Baso % (Auto) 1.0, Absolute Neuts (auto) 6.4, Absolute Lymphs (auto) 0.79 L, Nucleated RBC % 0.2, Sodium 137, P otassium 3.3 L, Chloride 101, Carbon Dioxide 30.0, Anion Gap 6, BUN 27 H, C reatinine 2.30 H, Estim Creat Clear Calc 38.13, Est GFR (MDRD) Af Amer 36 L, Est GFR (MDRD) Non-Af 30 L, BUN/Creatinine Ratio 11.7, Glucose 101, Calcium 8.7 Physical Exam Narrative alert, oriented x3, no apparent distress and healthy appearing General Appearance: cooperative, well kempt and well developed Orientation / Consciousness: awake, oriented to person, oriented to place and oriented to time HEENT normocephalic and moist oral mucous membranes Eyes PERRL, EOMs intact bilaterally and conjunctivae normal Neck supple, no JVD, thyroid normal and no carotid bruits General: trachea midline Resp normal respiratory effort, no retractions and no use of accessory muscles Resp Narrative: Breath sounds are diminished bilaterally Auscultation: Negative for rales, rhonchi or wheezes Cardio regular rate, regular rhythm, S1 normal heart sound, S2 normal heart sound, no murmurs, no rub and no gallops GI normal to inspection, nondistended, normoactive bowel sounds, soft to palpation, non-tender and non-distended Extremity no clubbing, cyanosis or edema Skin no rashes or lesions noted General Skin Exam: no breakdown Neuro oriented x3, CN's II-XII intact bilaterally, moves all extremities, no focal motor deficits and no sensory deficits noted Sensorium / Orientation: awake and alert Speech: speech normal Psych affect normal Assessment & Plan Assessment/Plan (1) SOB (shortness of breath): (2) CKD (chronic kidney disease): (3) Paroxysmal atrial fibrillation: PLAN: Plan 1. Acute diastolic congestive heart failure-patient will be transitioned over to oral Lasix #2 hypoxia secondary to #1-resolved at this time #3 anemia-etiology unclear, I placed the patient on oral Protonix, he will need to undergo endoscopic procedures to rule out a GI issue, general surgery will be performing endoscopy on him Wednesday, repeat CBC tomorrow #4 chronic kidney disease stage IIIb-complicates care, management, recovery, and prognosis, labs will be monitored #5 morbid obesity-complicates care, management, recovery, and prognosis #6 demand ischemia secondary to hypoxia #7 probable COPD-patient denies any history of COPD although he was using inhalers as an outpatient, he will need further workup as an outpatient. #8 pulmonary hypertension-again patient is on IV Lasix #9 hypokalemia-patient will be given additional potassium today Total clinical time spent by myself addressing the patient's medical issues, reviewing all of the data, and collaborating with patient's care team: 35 minutes Charges/Coding Visit Charges Inpatient E&M: 42486 Subs Hosp L2
[2023-11-14] MEDS: Bisacodyl 5 MG Tablet 20 MG PO (15:50)
[2023-11-14 15:53] VITALS: BP 136/93; PULSE 70; RESP 16; TEMP 36.3; O2SAT 97
[2023-11-14] MEDS: Polyethylene Glycol 3350 BOWEL PREP 1 BOTTLE PO (17:35)
[2023-11-14] MEDS: Furosemide 40 MG Tablet PO (17:45)
[2023-11-14 21:11] VITALS: BP 155/91; PULSE 78; RESP 16; TEMP 36.1; O2SAT 98
[2023-11-14 21:14] VITALS: BMI 44.4
[2023-11-15] VITALS (15 sets, daily range): BP systolic 83–157; BP diastolic 57–90; PULSE 75–138; RESP 14–18; TEMP 35.8–37.1; O2SAT 93–98; BMI 44.4
--- NOTE | 2023-11-15 05:55 | EKG12_ITS ---
Test Reason : AFIB Blood Pressure : / mmHG Vent. Rate : 128 BPM Atrial Rate : 000 BPM P-R Int : 000 ms QRS Dur : 082 ms QT Int : 342 ms P-R-T Axes : 000 012 134 degrees QTc Int : 499 ms Atrial fibrillation with rapid ventricular response Cannot rule out Inferior infarct , age undetermined Abnormal ECG When compared with ECG of 10-NOV-2023 13:41, MANUAL COMPARISON REQUIRED, DATA IS UNCONFIRMED Confirmed by CLIFF RODRIGUEZ, JARRETT ([id number]), associate editor DEWEY MACHADO ([id number]) on 11/16/2023 9:28:50 AM Referred By: SMILEY Confirmed By:JARRETT CORONADO MD
[2023-11-15 06:24] LABS: Absolute Lymphocyte Count 0.69 X10^3/uL (0.83-4.51); Absolute Neutrophil Count 5.9 X10^3/uL (2.0-7.7); Basophil# 0.09 X10^3/uL; Basophil% 1.1 % (0-1); Eosinophil# 0.49 X10^3/uL; Eosinophils% 6.1 % (0-5); Hematocrit 27.9 % (40-54); Hemoglobin 8.2 g/dL (13.0-16.5); Lymphocyte # 0.69 X10^3/ul (0.83-4.51); Lymphocyte % 8.6 % (19-41); Mean Corp Hgb Conc 29.4 g/dL (32-36); Mean Corpuscular Volume 85.1 fL (80-94); Mean Platelet Vol. 8.9 fl (6.2-12.0); Monocyte# 0.81 X10^3/uL; Monocyte% 10.2 % (0-10); NRBC Flagged by Analyzer 0 % (0-5); Neutrophil # 5.85 X10^3/uL (2.7-7.7); Neutrophil % 73.4 % (47-70); Platelet Count 438 K/mm3 (150-450); RBC Distribution Width CV 16.7 % (11.6-14.6); RBC Distribution Width SD 49.4 fl (35.1-43.9); Red Blood Count 3.28 M/mm3 (4.6-6.2)
[2023-11-15 06:47] LABS: Anion Gap 8 (5-15); BUN 21 mg/dL (7-18); BUN/Creat Ratio 9.5 RATIO (10-20); Chloride 101 mmol/L (98-107); Creatinine, Serum 2.22 mg/dL (0.70-1.30); EST Glomerular Filtration Rate 31 mL/min (>60); Est Glom Filt Rate - Afr Amer 38 mL/min (>60); Estimated Creatinine Clearance 39.45 ml/min; Glucose 107 mg/dL (74-106); Potassium 3.2 mmol/L (3.5-5.1); Sodium Level 137 mmol/L (136-145)
[2023-11-15 08:22] LABS: International Normalized Ratio 1.3; Prothrombin Time (Protime)PT. 15.7 SECONDS (11.7-14.9)
[2023-11-15 08:23] LABS: Partial Thromboplast Time 33.5 Seconds (24.1-36.2)
[2023-11-15] MEDS: Lactated Ringers 1,000 ML 15 ML IV (10:15)
--- NOTE | 2023-11-15 10:36 | PRE.ANES_ITS ---
ASA Classification* ASA Classification ASA Classification: 3 Assessment & Plan Anesthesia* Anesthesia Assessment Anesthesia Assessment: Discussed sedation and/or anesthesia options, risks, benefits, and alternatives with patient/parents/legal guardian/POA. Questions invited. The patient/parents/legal guardian/POA seems to understand and agrees to proceed with anesthesia plan. Reviewed the physical assessment, medical history, allergy history and patient home medications list prior to surgery/procedure/anesthetic and documented any changes. Performed airway and anesthesia risk assessments. Anesthesia Type Anesthesia Type: MAC Pre-Assessment Diagnosis/Proposed Procedure Planned Operative Procedure(s): Colonoscopy Anesthesia History Anesthesia History - science interpreter: Anesthesia History - science interpreter Hx Hospitalization No 09/16/20 11:14 Any Problems With Anesthesia No 11/14/23 21:14 Cholinesterase deficiency No 09/16/20 11:14 You/Your Family Experience No 11/14/23 21:14 fever (hyperthermia) with Relationship Recent Exposure to Contagious No 11/14/23 21:14 Disease Does patient have nerve No 11/14/23 21:14 stimulator Patient instructed to have device shut off --Does patient have Pacemaker No 11/14/23 21:14 or ICD? When Was Last Pacemaker Check QUESTION #4 FULL TEXT: You/Your Family Experience fever (hyperthermia) with Anesthesia Last Oral Intake Last Oral intake: Last Oral Intake NPO since 00:00 11/14/23 21:14 Meds taken in AM with sips of water? Meds patient instructed to take am of surgery PONV PONV - science interpreter: PONV - science interpreter Female HX of Motion Sickness HX of N/V After Surgery Non-Smoker Duration of Surgery greater than 60 minutes Number of Risk Factors PONV Score Any additional information?: Yes Female: No HX of Motion Sickness: No HX of N/V After Surgery: No Non-Smoker: Yes Duration of Surgery greater than 60 minutes: No Number of Risk Factors: 1 PONV Score: Low Risk Height & Weight Height & Weight: Anesthesia: Height & Weight Height 5 ft 8 in 11/14/23 21:14 Weight: 132.7 kg 11/15/23 03:33 Body Mass Index (BMI) 44.4 11/15/23 03:33 Respiratory Assessment Respiratory Assessment - science interpreter: Respiratory Tract Infection Hx - science interpreter Hx Respiratory Tract Infection No 11/14/23 21:14 STOP Sleep Apnea STOP Sleep Apnea - science interpreter: STOP Sleep Apnea - science interpreter Hx Hypertension Yes 11/10/23 15:12 Hx Sleep Apnea Yes 11/10/23 15:12 CPAP Yes 11/10/23 15:12 BIPAP No 11/10/23 15:12 Do you snore loudly (louder than talking or can be heard Do you often feel tired/ fatigued/ sleepy during daytime? Has anyone observed you stop breathing during sleep? STOP Results Positive 11/10/23 15:12 QUESTION #5 FULL TEXT : Do you snore loudly (louder than talking or can be heard through closed doors)? Tobacco Use History Tobacco Use History - science interpreter: Tobacco Use History - science interpreter Tobacco Use Smoking Status Former smoker 11/10/23 15:12 Hx Tobacco Use No 11/10/23 15:12 Years Smoking Packs Smoked per Day Smoking Cessation Date was Yes - quit smoking within 15 11/10/23 15:12 within the last 15 years years Hx Smoking Cessation Date 05/31/05 11/10/23 15:12 Hx Smoking Cessation No 11/10/23 15:12 Counseling Hematologic Medial History Hematologic Hx - science interpreter: Hematologic Medical Hx - kitchen hand Hx of Blood Transfusion No 11/10/23 15:12 Hx of Transfusion in last 3 No 11/10/23 15:12 Months Date of Last Transfusion (if within last 3 months) Ever experience any problems No 11/10/23 15:12 with transfusion(s)? Specify any problems Hx of Preganancy in last 3 N/A 11/10/23 15:12 Months Nurse Filling Out Transfusion JROTH 11/10/23 15:12 & Questions: Date: 11/10/23 11/10/23 15:12 Time: 15:25 11/10/23 15:12 Patient unable to answer at this time (ie. confused, unrespo /Reproduction History /Reproductive History - science interpreter: /Reproductive Hx- science interpreter Hx Now Gestational Age (in weeks): EDC: Hx Hx Para Hx Section SAB Active Medications Active Medications: Current Medications Generic Name Dose Route Start Last Admin Trade Name Freq PRN Reason Stop Dose Admin Acetaminophen 650 mg 11/10/23 15:14 11/12/23 19:42 Acetaminophen 325 Mg Tablet PO 650 mg Q6H PRN PRN Administration Pain 1-10 Or Fever >100.7 Albuterol/Ipratropium 3 ml 11/10/23 15:14 11/12/23 06:55 Ipratropium/Albuterol Sulfate 3 Ml Ampul.Neb INHALATION 3 ml Q6HWA.RT ROSALEE Administration Amlodipine Besylate 10 mg 11/11/23 10:00 11/14/23 09:56 Amlodipine 10 Mg Tablet PO 10 mg DAILY ROSALEE Administration Protocol Aspirin 81 mg 11/11/23 08:00 11/14/23 09:57 Aspirin E.C. 81 Mg Tablet PO 81 mg DAILYCM ROSALEE Administration Furosemide 40 mg 11/14/23 18:00 11/14/23 17:45 Furosemide 40 Mg Tablet PO 40 mg BIDLX ROSALEE Administration Protocol Sodium Chloride 250 mls @ 15 mls/hr 11/12/23 13:59 IV .[id number] PRN Additional IVPB Infusion Sodium Chloride 250 mls @ 15 mls/hr 11/12/23 13:59 IV .[id number] PRN Saline Flush Lactated Ringer's 1,000 mls @ 15 mls/hr 11/15/23 10:15 11/15/23 10:15 IV 15 mls/hr .Q48H ROSALEE Administration Metoprolol Succinate 100 mg 11/13/23 10:00 11/14/23 09:56 Metoprolol(Xl)Succ 100 Mg Tablet PO 100 mg DAILY ROSALEE Administration Protocol Ondansetron HCl 4 mg 11/10/23 15:14 Ondansetron 4 Mg/2 Ml Vial IV Q8H PRN PRN NAUSEA/VOMITING Oxycodone HCl 5 mg 11/10/23 15:14 Oxycodone 5 Mg Tablet PO Q4H PRN PRN Pain Score 4-10 Pantoprazole Sodium 40 mg 11/10/23 22:00 11/14/23 21:12 Pantoprazole Sodium 40 Mg Tablet PO 40 mg BID ROSALEE Administration Potassium Chloride 20 meq 11/10/23 17:00 11/14/23 17:45 Potassium Chloride Oral Tablet 20 Meq PO 20 meq BIDCM ROSALEE Administration Psyllium Hydrophilic Mucilloid 1 packet 11/11/23 22:00 11/14/23 21:13 Psyllium 1 Packet PO Not Given BID ROSALEE Sodium Chloride 10 - 40 ml 11/12/23 13:59 11/13/23 21:17 0.9% Saline Lock 10 Ml Syringe IV 10 ml UD PRN Administration SALINE FLUSH Anesthesia Focused Assessment* Temperature: 98.2 F Pulse Rate: 75 Blood Pressure: 139/57 Respiratory Rate: 16 Pulse Ox: 97 Oxygen Flow Rate (L/min): 3 Airway Assessment Mouth opens: >3 cm Mallampati Score: II Focused Labs Anesthesia Preop lab: CBC WBC 8.0 K/mm3 (4.4-11.0) 11/15/23 05:33 RBC 3.28 M/mm3 (4.6-6.2) L 11/15/23 05:33 Hgb 8.2 g/dL (13.0-16.5) L 11/15/23 05:33 Hct 27.9 % (40-54) L 11/15/23 05:33 Plt Count 438 K/mm3 (150-450) 11/15/23 05:33 CHEMISTRY Potassium 3.2 mmol/L (3.5-5.1) L 11/15/23 05:33 Sodium 137 mmol/L (136-145) 11/15/23 05:33 Magnesium 2.3 mg/dL (1.6-2.6) 12/02/22 14:32 BUN 21 mg/dL (7-18) H 11/15/23 05:33 Creatinine 2.22 mg/dL (0.70-1.30) H 11/15/23 05:33 Glucose 107 mg/dL (74-106) H 11/15/23 05:33 TSH 1.34 uIU/mL (0.358-3.74) 07/27/22 09:40 COAG PT 15.7 SECONDS (11.7-14.9) H 11/15/23 05:33 Review of Systems (Anesthesia) ROS Narrative System reviewed and no additional complaints, except as documented. [facility] Medical History Daytime hypersomnia Morbid obesity Carotid artery disease Paroxysmal atrial fibrillation Atrial fibrillation CAD (coronary artery disease) Dyspnea on exertion Melanoma in situ Gallstones Hypertension MADI (acute kidney injury) Syncope and collapse COVID-19 SARS pneumonia Home Medications ?Medication ?Instructions ?Recorded ?Last Taken ?Type amlodipine 10 mg tablet 10 mg PO DAILY bp 03/29/20 11/10/23 History vitamin E mixed 400 unit tablet 400 unit PO DAILY suppliment 08/14/22 11/10/23 History psyllium husk 0.4 gram capsule 0.4 g PO BID constipation 08/24/22 11/10/23 His tory (Metamucil) metoprolol succinate 25 mg 25 mg PO DAILY heart #90 tabs 02/08/23 11/10/23 Rx tablet,extended release 24 hr albuterol sulfate 90 mcg/actuation 2 puff inhalation Q4H PRN sob 10/28/23 Unknown History aerosol inhaler aspirin 81 mg tablet,delayed 81 mg PO DAILY preventative 10/28/23 11/10/23 History release potassium chloride 10 mEq 10 meq PO BID suppliment 10/28/23 Unknown History tablet,extended release furosemide 20 mg tablet 40 mg PO DAILY diuretic 11/08/23 Unknown History umeclidinium 62.5 mcg-vilanterol 1 ea inhalation QDAY PRN sob 11/11/23 11/10/23 History 25 mcg/actuation powdr for inhalation (Anoro Ellipta) Allergy/AdvReac Type Severity Reaction Status Date / Time shellfish derived Allergy Severe Other Verified 10/28/23 07:53 Penicillins AdvReac Severe Other Verified 10/28/23 07:53 lisinopril AdvReac Intermediate Other Verified 10/28/23 07:53 beclomethasone (From Qvar) AdvReac Mild Nausea Verified 10/28/23 07:53 Family History Father Heart disease Mother Heart disease Brother Heart disease Surgical History Hx of bilateral cataract extraction S/P cholecystectomy History of colonoscopy History of foot surgery History of total left knee replacement History of left-sided carotid endarterectomy (~11/10/15) Social History Smoking Status: Former smoker Tobacco: How many years used: 40 how long ago did patient quit smokin alcohol intake: current alcohol intake frequency: a few times a month substance use type: does not use caffeine: Yes (very little) Prior Cardiac Testing/Procedures Prior Cardiac Testing/Procedures: Echocardiogram (Ejection fraction 60%, mild aortic stenosis) Addt'l Information Additional Findings: Current EKG shows sinus rhythm, PACs, nonspecific ST changes
--- NOTE | 2023-11-15 11:00 | COLBX_PTH ---
PATIENT: EDIL DONALDSON LOC: [facility] U#:[id number] AGE/SX: 73/M ROOM: [facility] RE11/10/[address]: Dr. Tacos Gerardo DO : 1950 BED: 1 DIS: 11/15/2023 SPEC #: [id number] RECD: 11/15/23 12:11 STATUS: MARIO FELIPE #: [id number] MINE: 11/15/23 11:[address]: Joseph Gold DEPT: SURGICAL PATHOLOGY RECD BY: Diana Jensen ENTERED: 11/15/23 13:22 SP TYPE: COLON BX OTHR DR: DO Dr. Tacos Smith DO Tissues: Descending colon Procedures: Surgery Specimen Level IV HEADER OPERATION: Colonoscopy, polypectomy, EGD PRE-OP DIAGNOSIS: Anemia TISSUE SUBMITTED: Descending polyp MICROSCOPIC DIAGNOSIS Descending colon polyp, biopsy: Tubular adenoma. AM/mr 11/16/2023 MICROSCOPIC DESCRIPTION Slides are reviewed. GROSS DESCRIPTION Received in fixative is one container labeled with the patient's name and designated Descending colon polyp. The specimen consists of one irregular fragment of light gupta soft tissue that measures 0.6 x 0.6 x 0.2 cm. The specimen is totally submitted in one cassette. AM/mr 11/15/2023 TC:5 CPT:29040
--- NOTE | 2023-11-15 11:10 | OP.EGD_ITS ---
Patient Name: Bethel Zhu Procedure Date: 11/15/2023 10:34 AM Date of : 1950 Age: 73 Procedure: Upper GI endoscopy Indications: Iron deficiency anemia Providers: Joseph Gold MD Medicines: Propofol per Anesthesia Patient Profile: This is a 73 year old male. Refer to note in patient chart for documentation of history and physical. Complications: No immediate complications. Procedure: Pre-Anesthesia Assessment: - Prior to the procedure, a History and Physical was performed, and patient medications and allergies were reviewed. The patient's tolerance of previous anesthesia was also reviewed. The risks and benefits of the procedure and the sedation options and risks were discussed with the patient. All questions were answered, and informed consent was obtained. Prior Anticoagulants: The patient has taken no anticoagulant or antiplatelet agents. After reviewing the risks and benefits, the patient was deemed in satisfactory condition to undergo the procedure. After obtaining informed consent, the endoscope was passed under direct vision. Throughout the procedure, the patient's blood pressure, pulse, and oxygen saturations were monitored continuously. The Endoscope was introduced through the mouth, and advanced to the second part of duodenum. The upper GI endoscopy was accomplished without difficulty. The patient tolerated the procedure well. Scope In: 10:47:01 AM Scope Out: 10:48:12 AM Total Procedure Duration Time 0 hours 1 minute 11 seconds Findings: The esophagus was normal. The stomach was normal. The examined duodenum was normal. Impression: - Normal esophagus. - Normal stomach. - Normal examined duodenum. - No specimens collected. Recommendation: - Return patient to [facility] for ongoing care. - Continue present medications. Procedure Code(s): --- Professional --- 30634, Esophagogastroduodenoscopy, flexible, transoral; diagnostic, including collection of specimen(s) by brushing or washing, when performed (separate procedure) Diagnosis Code(s): --- Professional --- D50.9, Iron deficiency anemia, unspecified CPT copyright 2021 [employer]. All rights reserved. The codes documented in this report are preliminary and upon stock feeder review may be revised to meet current compliance requirements. Joseph Gold MD 11/15/2023 11:10:26 AM This report has been signed electronically. Number of Addenda: 0 Note Initiated On: 11/15/2023 10:34 AM
--- NOTE | 2023-11-15 11:10 | OP.CCLET_ITS ---
11/15/2023 Tacos Sutton [address] [place] [address] Re : Upper GI endoscopy procedure for Bethel Zhu Dear Dr. Sutton This procedure was performed on Wednesday, November 15, 2023. My impressions and recommendations are as follows: Impressions : - Normal esophagus. - Normal stomach. - Normal examined duodenum. - No specimens collected. Recommendations : - Return patient to [facility] for ongoing care. - Continue present medications. My findings are described in the full procedure note, which is enclosed. If I can be of further assistance, please feel free to contact me at Doctor phone number(s): , Work: . Sincerely, Joseph Gold MD 11/15/2023 11:10:26 AM This report has been signed electronically.
--- NOTE | 2023-11-15 11:11 | PCM.POST.ANE ---
Anesthesia: Postop Eval I Current Vital Signs Temperature: 97.2 F Pulse Rate: 87 Blood Pressure: 101/70 Respiratory Rate: 16 Pulse Ox: 96 Oxygen Delivery Method: Nasal Cannula Oxygen Flow Rate (L/min): 2 Assessment Airway patent: Yes Spontaneous unlabored respirations: Yes Mental status: Asleep nausea: No Vomiting: No Anesthesia Complication: No Fluid Hydration Crystalloid volume administer (ml): 400 Total IV fluid infused: 400 Progress Note Anesthesia document: Postop Eval 1 completed: Yes
--- NOTE | 2023-11-15 11:14 | OP.COLON_ITS ---
Patient Name: Bethel Zhu Procedure Date: 11/15/2023 10:50 AM Date of : 1950 Age: 73 Procedure: Colonoscopy Indications: Iron deficiency anemia Providers: Joseph Gold MD Medicines: Propofol per Anesthesia Patient Profile: This is a 73 year old male. Refer to note in patient chart for documentation of history and physical. Last Colonoscopy: several years ago. Complications: No immediate complications. Estimated blood loss: Minimal. Procedure: Pre-Anesthesia Assessment: - Prior to the procedure, a History and Physical was performed, and patient medications and allergies were reviewed. The patient's tolerance of previous anesthesia was also reviewed. The risks and benefits of the procedure and the sedation options and risks were discussed with the patient. All questions were answered, and informed consent was obtained. Prior Anticoagulants: The patient has taken no anticoagulant or antiplatelet agents. After reviewing the risks and benefits, the patient was deemed in satisfactory condition to undergo the procedure. - Prior to the procedure, a History and Physical was performed, and patient medications and allergies were reviewed. The patient's tolerance of previous anesthesia was also reviewed. The risks and benefits of the procedure and the sedation options and risks were discussed with the patient. All questions were answered, and informed consent was obtained. Prior Anticoagulants: The patient has taken no anticoagulant or antiplatelet agents. After reviewing the risks and benefits, the patient was deemed in satisfactory condition to undergo the procedure. After I obtained informed consent, the scope was passed under direct vision. Throughout the procedure, the patient's blood pressure, pulse, and oxygen saturations were monitored continuously. The Colonoscope was introduced through the anus and advanced to the cecum, identified by appendiceal orifice and ileocecal valve. The colonoscopy was performed without difficulty. The patient tolerated the procedure well. The quality of the bowel preparation was good. The ileocecal valve, appendiceal orifice, and rectum were photographed. Scope In: 10:51:13 AM Scope Withdrawal Time 0 hours 6 minutes 54 seconds Scope Out: 11:03:58 AM Total Procedure Duration Time 0 hours 12 minutes 45 seconds Findings: A small polyp was found in the descending colon. The polyp was removed with a hot snare. Resection and retrieval were complete. Impression: - One small polyp in the descending colon, removed with a hot snare. Resected and retrieved. Recommendation: - Return patient to [facility] for ongoing care. - Repeat colonoscopy in 5 years for surveillance based on pathology results. - Continue present medications. Procedure Code(s): --- Professional --- 24220, Colonoscopy, flexible; with removal of tumor(s), polyp(s), or other lesion(s) by snare technique Diagnosis Code(s): --- Professional --- D12.4, Benign neoplasm of descending colon D50.9, Iron deficiency anemia, unspecified CPT copyright 2021 [employer]. All rights reserved. The codes documented in this report are preliminary and upon invoice coder review may be revised to meet current compliance requirements. Joseph Gold MD 11/15/2023 11:13:51 AM This report has been signed electronically. Number of Addenda: 0 Note Initiated On: 11/15/2023 10:50 AM
--- NOTE | 2023-11-15 11:14 | OP.CCLET_ITS ---
11/15/2023 Tacos Sutton [address] [place] [address] Re : Colonoscopy procedure for Bethel Zhu Dear Dr. Sutton This procedure was performed on Wednesday, November 15, 2023. My impressions and recommendations are as follows: Impressions : - One small polyp in the descending colon, removed with a hot snare. Resected and retrieved. Recommendations : - Return patient to [facility] for ongoing care. - Repeat colonoscopy in 5 years for surveillance based on pathology results. - Continue present medications. My findings are described in the full procedure note, which is enclosed. If I can be of further assistance, please feel free to contact me at Doctor phone number(s): , Work: . Sincerely, Joseph Gold MD 11/15/2023 11:13:51 AM This report has been signed electronically.
--- NOTE | 2023-11-15 12:40 | PCM.POSTANE2 ---
Anesthesia Postop Eval I Sum Postop Eval Completion status Anesthesia document: Postop Eval 1 completed: Yes Anesthesia Postop Eval I Summary Anesthesia Postop Eval I Summary: Anesthesia Postop Eval I: Assessment Summary Airway patent Yes 11/15/23 11:17 [email or web address] Spontaneous unlabored Yes 11/15/23 11:17 [email or web address] respirations Mental status Asleep 11/15/23 11:17 [email or web address] nausea No 11/15/23 11:17 [email or web address] Vomiting No 11/15/23 11:17 [email or web address] Anesthesia Postop Eval I: Fluid Summary Crystalloid volume administer 400 11/15/23 11:17 [email or web address] (ml) Colloids volume administered ( ml) Blood Product volume administered (ml) Total IV fluid infused 400 11/15/23 11:17 [email or web address] Anesthesia Postop Eval I: Summary Notes Anesthesia Complication No 11/15/23 11:17 [email or web address] Anesthesia Complication Comment: Post-operative progress note Anesthesia: Postop Eval II Evaluation Mental status: Awake Pain Level: 0 nausea: No Vomiting: No Complications Anesthesia Complication: No
--- NOTE | 2023-11-15 12:55 | DCINST_ITS ---
Discharge Instructions Diet Discharge Diet: No restrictions Activity Discharge Activity: Return to Normal Activity Weight Bearing Status: Full weight bearing Follow Up Care Test Results: Test results from this visit will be discussed in further detail at your follow- up appointment, if applicable. Discharge Plan Admission Admit Date/Time: 11/10/23 14:45 Primary Reason for Your Visit: CHF, anemia Attending Provider: Tacos Gerardo Primary Care Provider: Tacos Sutton Consulting Providers: Joseph Gold Discharge Orders/Prescriptions Prescriptions: New furosemide 40 mg Tablet 40 mg PO BIDLX Qty: 60 0RF metoprolol succinate 100 mg Tablet Extended Release 24 Hr 100 mg PO DAILY Qty: 30 0RF potassium chloride 20 mEq Tablet,Er Particles/Crystals 20 meq PO BIDCM Qty: 60 0RF ferrous sulfate 325 mg (65 mg iron) tablet 325 mg PO BID Qty: 60 0RF Continued psyllium husk [Metamucil] 0.4 gram capsule 0.4 g PO BID aspirin 81 mg tablet,delayed release (DR/EC) 81 mg PO DAILY albuterol sulfate 90 mcg/actuation HFA aerosol inhaler 2 puff inhalation Q4H PRN (Reason: sob) amlodipine 10 MG tablet 10 mg PO DAILY Anoro Ellipta 62.5-25 mcg/actuation blister with device 1 ea inhalation QDAY PRN (Reason: sob) Discontinued vitamin E mixed 400 unit tablet 400 unit PO DAILY potassium chloride 10 mEq tablet extended release 10 meq PO BID metoprolol succinate 25 mg tablet extended release 24 hr 25 mg PO DAILY Qty: 90 3RF furosemide 20 mg tablet 40 mg PO DAILY Referrals / Follow Up: Tacos Sutton DO [Primary Care Provider] - Within 1 Week (He will need a CBC repeated, you will need a BMP repeated) Disposition Disposition (needs filled in before D/C Order can be placed): Home, Self Care
[2023-11-15] MEDS: Psyllium 1 PACKET PO (12:59)
[2023-11-15] MEDS: amLODIPine 10 MG Tablet PO (12:59)
[2023-11-15] MEDS: Aspirin E.C. 81 MG Tablet PO (12:59)
[2023-11-15] MEDS: Metoprolol(XL)Succ 100 MG Tablet PO (12:59)
[2023-11-15] MEDS: Potassium Chloride Oral Tablet 20 MEQ PO (12:59)
[2023-11-15] MEDS: Pantoprazole Sodium 40 MG Tablet PO (12:59)
[2023-11-15] MEDS: Furosemide 40 MG Tablet PO (13:05)
--- NOTE | 2023-11-15 13:07 | PCM.DC.SUM ---
Providers Date of Admission: 11/10/23 Date of Discharge: 11/15/23 Primary Care Physician: Dr. Tacos Sutton, Consultations 11/12/23 08:13 Consult: General Surgery Routine Consulting Provider: Joseph Gold Reason for Consult: anemia EMERGENT Consult: No MD Notified: Yes Date Notified: 11/12/23 Time Notified: 08:13 Method of Notification: Verbal Reason For Visit: CHF/ELEVATED TROPONIN/CKD Diagnosis Discharge Diagnosis (1) SOB (shortness of breath): Status: Acute Code(s): R06.02 - Shortness of breath (2) CKD (chronic kidney disease): Status: Chronic Code(s): N18.9 - Chronic kidney disease, unspecified (3) Paroxysmal atrial fibrillation: Status: Chronic Code(s): I48.0 - Paroxysmal atrial fibrillation Plan 1. Acute diastolic congestive heart failure-patient will be transitioned over to oral Lasix #2 hypoxia secondary to #1-resolved at this time #3 anemia-etiology unclear, iron deficiency anemia #4 chronic kidney disease stage IIIb-complicates care, management, recovery, and prognosis, labs will be monitored #5 morbid obesity-complicates care, management, recovery, and prognosis #6 demand ischemia secondary to hypoxia #7 probable COPD-patient denies any history of COPD although he was using inhalers as an outpatient, he will need further workup as an outpatient. #8 pulmonary hypertension-again patient is on IV Lasix #9 hypokalemia-patient will be given additional potassium today #10 polyp in the descending colon-removed with hot snare Total clinical time spent by myself addressing the patient's medical issues, reviewing all of the data, and collaborating with patient's care team: 35 minutes Medications at Discharge Home Medications amlodipine 10 mg tablet 10 mg PO DAILY bp 03/29/20 psyllium husk 0.4 gram capsule (Metamucil) 0.4 g PO BID constipation 08/24/22 albuterol sulfate 90 mcg/actuation aerosol inhaler 2 puff inhalation Q4H PRN sob 10/28/23 aspirin 81 mg tablet,delayed release 81 mg PO DAILY preventative 10/28/23 umeclidinium 62.5 mcg-vilanterol 25 mcg/actuation powdr for inhalation (Anoro Ellipta) 1 ea inhalation QDAY PRN sob 11/11/23 ferrous sulfate 325 mg (65 mg iron) tablet 325 mg PO BID #60 tabs 11/15/23 furosemide 40 mg tablet 40 mg PO BIDLX #60 tabs 11/15/23 metoprolol succinate 100 mg tablet,extended release 24 hr 100 mg PO DAILY #30 tabs 11/15/23 potassium chloride 20 mEq tablet,extended release(part/cryst) 20 meq PO BIDCM #60 tabs 11/15/23 Hospital Course Operations None Summary of Care Provided Minutes Spent on Discharge: 32 Hospital Course: This 73-year-old white male was seen in the emergency room at [facility] with complaints of progressive shortness of breath mainly on exertion and ambulation over the last several weeks. Patient stated he wears oxygen at night to help him sleep due to sleep apnea but he had experienced increased dyspnea over the last several weeks. Patient stated at his primary care office that his pulse ox was in the 60s on room air. Workup in the emergency room showed a normal white blood cell count, chemistry panel was remarkable for creatinine of 2.9 and a BUN of 24. Patient's troponin was elevated at 199, beta natruretic peptide was elevated at 419. EKG showed no evidence of ischemic changes, chest x-ray showed mild degree of CHF, patient also had a CT of the chest performed and this did not show any evidence of pulmonary embolism or aortic dissection, again there was noted to be pulmonary congestion on CTA. Patient was admitted to PCU for congestive heart failure, placed on IV diuresis and labs were monitored. Patient's blood count trended downward during his hospitalization he was given 1 unit of packed red blood cells, patient's iron level was noted to be low, patient was weaned off oxygen after several days of diuresis. Patient had episodes of A-fib during his hospitalization but converted to normal sinus rhythm. I had discussions with him about taking a full anticoagulant such as Eliquis or Xarelto, patient did not want to take full anticoagulation. Patient was given Venofer infusions during his hospital stay due to iron deficiency anemia. Echocardiogram showed normal EF with evidence of mild pulmonary hypertension. Patient was seen in consultation by general surgery and an upper and lower endoscopy was performed, there was a small polyp noted in the colon but no evidence of dorene bleeding was noted on the upper or lower endoscopy. On 11/15/2023, patient was seen and examined: On examination he appeared in good health and spirits. Vital signs as documented. Skin warm and dry and without overt rashes. Neck without JVD, neck was supple, trachea midline, thyroid was normal. Lungs clear bilaterally, normal air movement was noted. Heart exam notable for regular rhythm, normal sounds and absence of murmurs, rubs or gallops. Abdomen unremarkable and without evidence of organomegaly, masses, or abdominal aortic enlargement. Bowel sounds are present, abdomen is not distended. Extremities nonedematous, no cyanosis was noted, no clubbing was noted. Neuro: Cranial nerves II through XII are grossly intact, no focal motor deficits were noted, sensation to light touch and pinprick intact, motor exam 5/5 throughout. Psych: Patient is alert and oriented x3, he does not appear anxious or depressed, he does not appear agitated. On 11/15/2023, patient was seen and examined and felt to be stable for discharge home. Weight / BMI Weight Weight: 132.7 kg Body Mass Index (BMI) 44.4 ABG / Lab / Microbiology Data 11/15/23 05:33 11/15/23 05:33 Laboratory: Laboratory Results - last 24 hr 11/15/23 05:33: WBC 8.0, RBC 3.28 L, Hgb 8.2 L, Hct 27.9 L, MCV 85.1, MCH 25.0 L, MCHC 29.4 L, RDW Std Deviation 49.4 H, RDW Coeff of Ambreen 16.7 H, Plt Count 438, MPV 8.9, Immature Gran % (Auto) 0.600, Neut % (Auto) 73.4 H, Lymph % (Auto) 8.6 L, Polk % (Auto) 10.2 H, Eos % (Auto) 6.1 H, Baso % (Auto) 1.1 H, Absolute Neuts (auto) 5.9, Absolute Lymphs (auto) 0.69 L, Nucleated RBC % 0, PT 15.7 H, INR 1.3, APTT 33.5, Sodium 137, Potassium 3.2 L, Chloride 101, Carbon Dioxide 28.0, Anion Gap 8, BUN 21 H, Creatinine 2.22 H, Estim Creat Clear Calc 39.45, Est GFR (MDRD) Af Amer 38 L, Est GFR (MDRD) Non-Af 31 L, BUN/Creatinine Ratio 9.5 L, Glucose 107 H, Calcium 9.0 D/C Instructions Discharge Diet: No restrictions Weight Bearing Status: Full weight bearing Meaningful Use Info Meaningful Use Meaningful Use Diagnoses (Choose all that apply): CHF CHF ESTELA/ARB ordered at discharge?: No Reason ESTELA/ARB not ordered?: Not indicated Documented LVEF (%): 60 Ischemic Stroke Statin Dosing Therapy Reference: STATIN DOSE THERAPY REFERENCE: * Patients > 75 years receive moderate or high dose statin therapy. * Patients 75 years or YOUNGER should receive HIGH intensity statin dose unless contraindicated. You will be required to document reason for non-treatment if statin daily dose does not meet guidelines. HIGH DOSE STATIN THERAPY DAILY Atorvastatin > than or = to 40 mg Rosuvastatin > than or = to 20 mg Amlodipine + Atorvastatin > than or = to 2.5/40 mg Ezetimibe + Simvastatin 10/80 mg Simvastatin 80mg Discharge Plan Admission Admit Date/Time: 11/10/23 14:45 Primary Reason for Your Visit: CHF, anemia Attending Provider: Tacos Gerardo Primary Care Provider: Tacos Sutton Consulting Providers: Joseph Gold Discharge Orders/Prescriptions Prescriptions: New furosemide 40 mg Tablet 40 mg PO BIDLX Qty: 60 0RF metoprolol succinate 100 mg Tablet Extended Release 24 Hr 100 mg PO DAILY Qty: 30 0RF potassium chloride 20 mEq Tablet,Er Particles/Crystals 20 meq PO BIDCM Qty: 60 0RF ferrous sulfate 325 mg (65 mg iron) tablet 325 mg PO BID Qty: 60 0RF Continued psyllium husk [Metamucil] 0.4 gram capsule 0.4 g PO BID aspirin 81 mg tablet,delayed release (DR/EC) 81 mg PO DAILY albuterol sulfate 90 mcg/actuation HFA aerosol inhaler 2 puff inhalation Q4H PRN (Reason: sob) amlodipine 10 MG tablet 10 mg PO DAILY Anoro Ellipta 62.5-25 mcg/actuation blister with device 1 ea inhalation QDAY PRN (Reason: sob) Discontinued vitamin E mixed 400 unit tablet 400 unit PO DAILY potassium chloride 10 mEq tablet extended release 10 meq PO BID metoprolol succinate 25 mg tablet extended release 24 hr 25 mg PO DAILY Qty: 90 3RF furosemide 20 mg tablet 40 mg PO DAILY Referrals / Follow Up: Tacos Sutton DO [Primary Care Provider] - Within 1 Week (Please call the office to schedule an appt within the next week. You will need a CBC repeated, you will need a BMP repeated. ) Disposition Disposition (needs filled in before D/C Order can be placed): Home, Self Care Charges/Coding Visit Charges Inpatient E&M: 54227 Disch Hosp >30min
[2023-11-15] MEDS: Sodium Ferric Gluconat/Sucrose 250 MG in 0.9% Normal Saline (250mL Bag) 250 ML 135 MG IV (13:10)
[2023-11-15] MEDS: 0.9% Normal Saline (250mL Bag) 250 ML 15 ML IV (13:14)
--- NOTE | 2023-11-15 14:02 | CASEMGMT ---
PAWEL AVILA NOTE: Discharge order is in. RN CM to room. Pt sitting up in chair in room. He denies having any discharge needs. On RA. Pt states he has been up ambulating w/out difficulty in room. Melvi VICENTEN PAWEL CM
--- NOTE | 2023-11-15 14:40 | PHA.DC_ITS ---
Pharmacy [facility] has performed discharge medication reconciliation and counseling for this patient. 1. FERROUS SULFATE 325MG PO BID 2. FUROSEMIDE INCREASED TO 40MG BID, METOPROLOL SUCCINATE INCREASED TO 100MG, POTASSIUM INCREASED TO 20MEQ BID The patient's discharge medication list was reviewed for discrepancies and discrepancies were resolved. The patient was counseled on the following discharge medications and changes in medications for homegoing were reviewed. The Reason for Use, instructions for use, and potential side effects were reviewed for all new medications. The patient's questions regarding all of their medications were answered. The patient was able to verbally demonstrate an understanding of their discharge medications. Patient counseled by director student unionYeni. Medications at Discharge Home Medications amlodipine 10 mg tablet 10 mg PO DAILY bp 03/29/20 psyllium husk 0.4 gram capsule (Metamucil) 0.4 g PO BID constipation 08/24/22 albuterol sulfate 90 mcg/actuation aerosol inhaler 2 puff inhalation Q4H PRN sob 10/28/23 aspirin 81 mg tablet,delayed release 81 mg PO DAILY preventative 10/28/23 umeclidinium 62.5 mcg-vilanterol 25 mcg/actuation powdr for inhalation (Anoro Ellipta) 1 ea inhalation QDAY PRN sob 11/11/23 ferrous sulfate 325 mg (65 mg iron) tablet 325 mg PO BID #60 tabs 11/15/23 furosemide 40 mg tablet 40 mg PO BIDLX #60 tabs 11/15/23 metoprolol succinate 100 mg tablet,extended release 24 hr 100 mg PO DAILY #30 tabs 11/15/23 potassium chloride 20 mEq tablet,extended release(part/cryst) 20 meq PO BIDCM #60 tabs 11/15/23
--- NOTE | 2023-11-15 16:41 | NURSING ---
11/15/23@ 1157 and 1400- This RN reviewed both assessments and POC.
== END 2023-11-15 16:10 | disposition home or self-care (01) | DRG 291 ==
LOC: ED 12:44 → PCU 14:40
PROVIDERS: Anesthesiology; Surgery; Admitting Provider Internal Medicine; Emergency Provider Emergency Medicine; PCP Family Medicine; Visit Provider Internal Medicine
PROC: 0DJD8ZZ Inspection of Lower Intestinal Tract, Via Natural or Artificial Opening Endoscopic (ICD-10-PCS; CPT 45378; principal; 2023-11-15 10:55)
DX: I13.0 Hypertensive heart and chronic kidney disease with heart failure and stage 1 through stage 4 chronic kidney disease, or unspecified chronic kidney disease (principal); I50.31 Acute diastolic (congestive) heart failure; I24.89 Other forms of acute ischemic heart disease; Z68.41 Body mass index [BMI] 40.0-44.9, adult; D63.1 Anemia in chronic kidney disease; I27.20 Pulmonary hypertension, unspecified; J44.9 Chronic obstructive pulmonary disease, unspecified; N18.32 Chronic kidney disease, stage 3b; E66.01 Morbid (severe) obesity due to excess calories; I48.0 Paroxysmal atrial fibrillation; I25.2 Old myocardial infarction; I25.10 Atherosclerotic heart disease of native coronary artery without angina pectoris; D50.9 Iron deficiency anemia, unspecified; E87.6 Hypokalemia; D12.4 Benign neoplasm of descending colon; Z87.891 Personal history of nicotine dependence; Z79.82 Long term (current) use of aspirin; Z86.16 Personal history of COVID-19; Z79.51 Long term (current) use of inhaled steroids
CPT/HCPCS: 36415; 71045; 71046; 71275; 80048; 80053; 82728; 83540; 83550; 83880; 84484; 85025; 85610; 85730; 86850; 86900; 86901; 86920; 86922; 88305; 93005; 93306; 94002; 94003; 94640; 99252; 99285; J7040; J7050; J7120; P9016; Q9957; Q9967; A4216; C8929; G0463; J1940; J2405; J2916

== ENCOUNTER → 2024-01-03 | Outpatient (CLI) | payer MEDICARE, OTHER, SELFPAY ==
[2024-01-03 12:07] LABS: Absolute Lymphocyte Count 1.28 X10^3/uL (0.83-4.51); Absolute Neutrophil Count 6.5 X10^3/uL (2.0-7.7); Basophil# 0.07 X10^3/uL; Basophil% 0.8 % (0-1); Eosinophils% 6.5 % (0-5); Hematocrit 36.3 % (40-54); Hemoglobin 11.1 g/dL (13.0-16.5); Lymphocyte # 1.28 X10^3/ul (0.83-4.51); Lymphocyte % 13.8 % (19-41); Mean Corp Hgb Conc 30.6 g/dL (32-36); Mean Corpuscular Hgb 26.9 pg (27.0-32.0); Mean Corpuscular Volume 88.1 fL (80-94); Mean Platelet Vol. 9.1 fl (6.2-12.0); Monocyte# 0.87 X10^3/uL; Monocyte% 9.4 % (0-10); NRBC Flagged by Analyzer 0 % (0-5); Neutrophil # 6.45 X10^3/uL (2.7-7.7); Neutrophil % 69.3 % (47-70); Platelet Count 335 K/mm3 (150-450); RBC Distribution Width CV 17.4 % (11.6-14.6); RBC Distribution Width SD 56.5 fl (35.1-43.9); Red Blood Count 4.12 M/mm3 (4.6-6.2); White Blood Count 9.3 K/mm3 (4.4-11.0)
[2024-01-03 12:37] LABS: Anion Gap 6 (5-15); BUN 22 mg/dL (7-18); BUN/Creat Ratio 9.6 RATIO (10-20); Calcium,Total 9.1 mg/dL (8.5-10.1); Chloride 106 mmol/L (98-107); Creatinine, Serum 2.29 mg/dL (0.70-1.30); EST Glomerular Filtration Rate 30 mL/min (>60); Est Glom Filt Rate - Afr Amer 36 mL/min (>60); Ferritin 59 ng/mL (26-388); Glucose 112 mg/dL (74-106); PSA,Total - Annual Screen 0.13 ng/mL (0.00-4.00); Potassium 4.2 mmol/L (3.5-5.1); Sodium Level 141 mmol/L (136-145)
== END | disposition home or self-care (01) ==
PROVIDERS: PCP Family Medicine; Referring Provider Urology; Visit Provider Urology
DX: Z12.5 Encounter for screening for malignant neoplasm of prostate (principal); N18.32 Chronic kidney disease, stage 3b; D64.9 Anemia, unspecified
CPT/HCPCS: 36415; 80048; 82728; 84153; 85025; G0103

== ENCOUNTER → 2024-02-23 | Outpatient (CLI) | payer MEDICARE, OTHER, SELFPAY ==
--- NOTE | 2024-02-23 13:28 | RAD_ITS ---
STUDY: X-RAY - UNILATERAL RIBS ( RIGHT ) WITH CHEST REASON FOR EXAM: Male, 73 years old. Right rib pain. TECHNIQUE - RIBS: 4 view(s) of the ribs. TECHNIQUE - CHEST: Single frontal view of the chest. COMPARISON: Chest dated November 12, 2023 FINDINGS - RIBS: Diffuse osteopenia. No displaced rib fracture identified. FINDINGS - CHEST: Stable mild hyperinflation. There is no demonstrated pleural abnormality. Borderline cardiomegaly unchanged. Normal mediastinum and gabriela. Normal visualized pulmonary arteries. Stable aortic tortuosity. No abnormality of the visualized soft tissue structures of the upper abdomen. RAD/Ribs Uni Min 3V w/PA Chest IMPRESSION: RIBS: Osteopenia with no displaced rib fracture. CHEST: Stable borderline cardiomegaly. Electronically Signed: Liborio Ceja MD at 15:20 EDT ,
--- NOTE | 2024-02-23 13:30 | RAD_ITS ---
STUDY: X-RAY - ABDOMEN/PELVIS REASON FOR EXAM: Male, 73 years old. Pain. TECHNIQUE: Single AP view of the abdomen / pelvis on 6 images. COMPARISON: None. FINDINGS: Probable small bilateral Normal bowel gas pattern is consistent moderate to marked feces colon. The visualized liver, spleen and kidneys are grossly normal in size and morphology. Vascular calcification Normal visualized osseous structures. RAD/Abdomen Single View IMPRESSION: No acute abnormality. Electronically Signed: Liborio Ceja MD at 14:16 EDT ,
== END | disposition home or self-care (01) ==
LOC: MTRAD 13:25
PROVIDERS: PCP Family Medicine; Referring Provider Family Medicine; Visit Provider Family Medicine
DX: R11.10 Vomiting, unspecified (principal); R07.81 Pleurodynia
CPT/HCPCS: 71101; 74018

== ENCOUNTER → 2024-03-21 | Outpatient (CLI) | payer MEDICARE, OTHER, SELFPAY ==
[2024-03-21 12:28] LABS: Absolute Lymphocyte Count 1.05 X10^3/uL (0.83-4.51); Absolute Neutrophil Count 8.4 X10^3/uL (2.0-7.7); Basophil# 0.09 X10^3/uL; Basophil% 0.8 % (0-1); Eosinophils% 3.6 % (0-5); Hematocrit 34.3 % (40-54); Hemoglobin 10.4 g/dL (13.0-16.5); Lymphocyte # 1.05 X10^3/ul (0.83-4.51); Lymphocyte % 9.6 % (19-41); Mean Corp Hgb Conc 30.3 g/dL (32-36); Mean Corpuscular Hgb 25.4 pg (27.0-32.0); Mean Corpuscular Volume 83.7 fL (80-94); Mean Platelet Vol. 9.8 fl (6.2-12.0); Monocyte# 0.95 X10^3/uL; Monocyte% 8.7 % (0-10); NRBC Flagged by Analyzer 0 % (0-5); Neutrophil # 8.44 X10^3/uL (2.7-7.7); Neutrophil % 76.9 % (47-70); Platelet Count 417 K/mm3 (150-450); RBC Distribution Width CV 15.2 % (11.6-14.6); RBC Distribution Width SD 45.2 fl (35.1-43.9)
[2024-03-21 12:40] LABS: AST(SGOT) 10 U/L (15-37); Alanine Aminotransfer ALT/SGPT 12 U/L (16-61); Albumin, Serum 2.9 g/dL (3.2-5.0); Alkaline Phosphatase 110 U/L (45-117); Bilirubin, Direct 0.07 mg/dL (0.00-0.30); Cholesterol 173 mg/dL (200); High Density Lipoprotein 50 mg/dL; Protein, Total 7.9 g/dL (6.4-8.2); Triglycerides 70 mg/dL; Very Low Density Lipoprotein 14 mg/dL (5-40)
[2024-03-21 12:44] LABS: ALB/GLOB Ratio 0.6 RATIO (0.9-2.4); AST(SGOT) 7 U/L (15-37); Alanine Aminotransfer ALT/SGPT 14 U/L (16-61); Albumin, Serum 2.9 g/dL (3.2-5.0); Alkaline Phosphatase 114 U/L (45-117); Anion Gap 7 (5-15); BUN 27 mg/dL (7-18); BUN/Creat Ratio 12.1 RATIO (10-20); Chloride 109 mmol/L (98-107); Creatinine, Serum 2.24 mg/dL (0.70-1.30); EST Glomerular Filtration Rate 31 mL/min (>60); Est Glom Filt Rate - Afr Amer 37 mL/min (>60); Globulin 4.9 g/dL (2.2-4.2); Glucose 116 mg/dL (74-106); Lipase 55 U/L (13-75); Potassium 3.9 mmol/L (3.5-5.1); Protein, Total 7.8 g/dL (6.4-8.2); Sodium Level 142 mmol/L (136-145)
== END | disposition home or self-care (01) ==
LOC: MTLAB 09:31
PROVIDERS: Internal Medicine Cardiovascular Disease; PCP Family Medicine
DX: R11.2 Nausea with vomiting, unspecified (principal); K59.00 Constipation, unspecified; D50.9 Iron deficiency anemia, unspecified; R10.10 Upper abdominal pain, unspecified; K21.9 Gastro-esophageal reflux disease without esophagitis; K55.1 Chronic vascular disorders of intestine; K63.5 Polyp of colon
CPT/HCPCS: 36415; 80053; 80061; 80076; 83690; 85025

== ENCOUNTER → 2024-03-28 | Outpatient (CLI) | payer MEDICARE, OTHER, SELFPAY ==
[2024-03-28 15:49] LABS: Vitamin B12 565 pg/mL (211-911)
[2024-03-28 16:13] LABS: Ferritin 28 ng/mL (26-388); Iron 26 ug/dL (65-175); Iron Binding Capacity,Total 401 ug/dL (250-450); PERCENT IRON SATURATION 6.5 % (15.0-55.0)
== END | disposition home or self-care (01) ==
LOC: MTLAB 10:47
PROVIDERS: PCP Family Medicine
DX: D50.9 Iron deficiency anemia, unspecified (principal)
CPT/HCPCS: 36415; 82274; 82607; 82728; 82746; 83540; 83550

== ENCOUNTER → 2024-04-05 | Outpatient (CLI) | payer MEDICARE, OTHER, SELFPAY ==
--- NOTE | 2024-04-05 08:00 | CT_ITS ---
We are attempting to reach an attending provider to discuss findings. An addendum with communication details will be sent when the communication is complete. EXAM: CT ABDOMEN AND PELVIS WITHOUT INTRAVENOUS CONTRAST CLINICAL INDICATION: NAUSEA AND VOMITING TECHNIQUE: Helically acquired images were obtained of the abdomen and pelvis without intravenous contrast. This CT exam was performed using one or more of the following dose reduction techniques: automated exposure control, adjustment of the mA and/or kV according to patient size, and/or use of iterative reconstruction technique. RADIATION DOSE: Old = 31.67 mGy, DLP = 1724.83 mGy-cm COMPARISON: Chest CT November 10, 2023 includes to the level of the left renal artery, with mild to moderate pleural effusions and dependent lung base consolidation and at least interstitial markings, advanced coronary artery calcifications or stents, atrophic fatty replaced pancreas FINDINGS: LOWER THORAX: There are calcifications of the aortic valve leaflets, similar to prior exam, possibly some degree of aortic valve stenosis. Coronary artery calcifications or stents, the heart is not fully included. Normal heart size. Lung bases are clear. No significant pericardial effusion. ABDOMEN: LIVER: Right lobe of liver is 16.9 cm. GALLBLADDER AND BILE DUCTS: Cholecystectomy. No intra- or extrahepatic biliary ductal dilation. PANCREAS: Fatty replaced and atrophic pancreas. No focal cystic mass. SPLEEN: Unremarkable. Normal size without focal cystic or solid mass. ADRENALS: Unremarkable. No nodules. KIDNEYS AND URETERS: Mildly atrophic right kidney, mildly increased from prior exam, right kidney 8.7 cm x 3.8 cm, it was 8.8 cm x 4.9 cm. There is a stable punctate 6 mm stone in the upper pole right kidney. No hydronephrosis. STOMACH AND BOWEL: Mildly thick-walled appearance of multiple small bowel loops in the left midabdomen may be due to enteritis or ischemia. No obstruction. Moderate stool in the distal sigmoid and rectum. Mild gas and stool in the colon. PELVIS: APPENDIX: Normal appendix is seen on sagittal images. BLADDER: Unremarkable. REPRODUCTIVE: Unremarkable as visualized. No mass. ABDOMEN and PELVIS: INTRAPERITONEAL SPACE: Unremarkable. No ascites or other fluid collection. No free air. BONES/JOINTS: Unremarkable. No suspicious lytic or blastic abnormality. SOFT TISSUES: Unremarkable. No discrete abdominal or pelvic wall hernia. VASCULATURE: There is mid to distal infrarenal aortic aneurysm, now 4 cm AP by 4.1 cm transverse, it was 3.4 cm AP by 3.5 cm. Origin of the aneurysm is roughly 2 cm inferior to the level of the heavily calcified left renal artery. Apparent high-grade stenosis of origins of the renal arteries seen on prior enhanced CT Heavily calcified and severely stenotic origin of the right common iliac artery appears similar to prior exam. At least moderate narrowing of the origin of the left common iliac artery. 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 Heavily calcified and apparently severely stenotic distal right common iliac artery, similar to prior exam. There is a metallic stents in the proximal at least 2.7 cm of the SMA. Heavily calcified mid to distal main SMA and proximal branches. LYMPH NODES: Unremarkable. No enlarged lymph nodes. CT/Abdomen/Pelvis without Cont IMPRESSION: 1. Mildly larger size of the infrarenal aortic aneurysm, now 4 cm x 4.1 cm. Recommendation: Consider Vascular-Interventional follow-up or consultation. 2. Unenhanced exam, cannot assess patency of the stent in the proximal SMA. No evidence of High-grade apparent renal artery origin stenoses. High-grade bilateral iliac stenoses. 3. No retroperitoneal hemorrhage. The third part of the duodenum immediately drapes over the aortic aneurysm, potential for aortoenteric fistulization. 4. Cholecystectomy. 5. Mildly-moderately thick-walled appearance of multiple small bowel loops in the central and left abdomen. Suspected slight haziness in the mesentery. Concerning for ischemia. No mesenteric venous or portal venous gas. No pneumatosis. Electronically Signed: Juhi Santamaria MD at 2:51 EST ,
--- NOTE | 2024-04-07 14:51 | NURSING ---
[id number] Call received from [facility] to the [place] of a critical CT result. I called the providers ( Mica Hernandez NP) office, [facility] and gave the results to Jackelin who stated would relay to the provider. I also faxed a copy of the results to [facility] at [phone].
== END | disposition home or self-care (01) ==
LOC: CT 07:46
PROVIDERS: PCP Family Medicine
DX: R11.2 Nausea with vomiting, unspecified (principal); K59.00 Constipation, unspecified; D50.9 Iron deficiency anemia, unspecified; R10.10 Upper abdominal pain, unspecified; K21.9 Gastro-esophageal reflux disease without esophagitis; K55.1 Chronic vascular disorders of intestine; K63.5 Polyp of colon
CPT/HCPCS: 74176

== ENCOUNTER → 2024-05-15 | Outpatient (CLI) | payer MEDICARE, OTHER, SELFPAY ==
[2024-05-15 12:19] LABS: Hematocrit 36.1 % (40-54); Hemoglobin 10.8 g/dL (13.0-16.5); Mean Corp Hgb Conc 29.9 g/dL (32-36); Mean Corpuscular Hgb 23.6 pg (27.0-32.0); Mean Corpuscular Volume 78.8 fL (80-94); Mean Platelet Vol. 9.5 fl (6.2-12.0); Platelet Count 405 K/mm3 (150-450); RBC Distribution Width CV 16.5 % (11.6-14.6); RBC Distribution Width SD 46.5 fl (35.1-43.9); Red Blood Count 4.58 M/mm3 (4.6-6.2)
[2024-05-15 13:10] LABS: Ferritin 33 ng/mL (26-388); Iron 35 ug/dL (65-175); Iron Binding Capacity,Total 435 ug/dL (250-450)
== END | disposition home or self-care (01) ==
PROVIDERS: PCP Family Medicine; Referring Provider Internal Medicine; Visit Provider Internal Medicine
DX: R10.84 Generalized abdominal pain (principal); D50.9 Iron deficiency anemia, unspecified
CPT/HCPCS: 36415; 82728; 83540; 83550; 85027

== ENCOUNTER → 2024-08-14 | Outpatient (CLI) | payer MEDICARE, OTHER, SELFPAY ==
[2024-08-14 09:19] LABS: Hematocrit 42.8 % (40-54); Hemoglobin 13.3 g/dL (13.0-16.5); Mean Corp Hgb Conc 31.1 g/dL (32-36); Mean Corpuscular Hgb 25.6 pg (27.0-32.0); Mean Corpuscular Volume 82.5 fL (80-94); Mean Platelet Vol. 9.1 fl (6.2-12.0); POSITIVE MORPHOLOGY YES; Platelet Count 281 K/mm3 (150-450); RBC Distribution Width CV 21.2 % (11.6-14.6); Red Blood Count 5.19 M/mm3 (4.6-6.2); White Blood Count 9.4 K/mm3 (4.4-11.0)
[2024-08-14 09:21] LABS: Scan Indicated on CBC? Y/N YES- FLAGS NOTED
--- NOTE | 2024-08-14 09:25 | RAD_ITS ---
PROCEDURE: CHEST PA AND LATERAL (RADCXR), 08/14/2024 REASON FOR EXAM: SOB TECHNIQUE: PA and lateral views of the chest were obtained. COMPARISON: 02/23/2024 FINDINGS: Heart: Similar borderline cardiomegaly.. Mediastinum: Atherosclerosis. Mild central vascular prominence. Lungs/pleura: No convincing focal consolidation allowing for chest wall attenuation. No effusion or visible pneumothorax. Bones: Demineralization. Multilevel spondylosis. Lines and support devices: None. RAD/Chest PA and Lateral IMPRESSION: 1. Similar borderline cardiomegaly and central vascular prominence without over t pulmonary edema. 2. Additional description as above. Reading Location: [id number]
[2024-08-14 13:02] LABS: Anion Gap 14 (5-15); BUN 23 mg/dL (4-19); BUN/Creat Ratio 9.8 RATIO (10-20); Calcium,Total 8.9 mg/dL (7.6-11.0); Carbon Dioxide 24.4 mmol/L (21.0-32.0); Chloride 100 mmol/L (98-108); Creatinine, Serum 2.36 mg/dL (0.70-1.20); EST Glomerular Filtration Rate 28 (>60); Glucose 149 mg/dL (70-99); Potassium 3.8 mmol/L (3.3-5.1); Pro- Brain NATRIURETIC PEPTIDE 4601 pg/mL (<=900); Sodium Level 138 mmol/L (133-145)
== END | disposition home or self-care (01) ==
LOC: RAD 09:00
PROVIDERS: PCP Family Medicine; Referring Provider Physician Assistant Medical; Visit Provider Physician Assistant Medical
DX: R06.02 Shortness of breath (principal)
CPT/HCPCS: 36415; 71046; 80048; 83880; 85027

== ENCOUNTER → 2024-08-17 | Outpatient (CLI) | payer MEDICARE, OTHER, SELFPAY ==
--- NOTE | 2024-08-17 12:38 | ECHOD_ITS ---
Reason For Study Reason For Study: DYSPNEA Procedure This was a 2D Doppler, Color Flow transthoracic echocardiogram. The study was technically difficult. Exam performed in department. Left Ventricle Normal LV size. Mild concentric left ventricular hypertrophy. Estimated LVEF 50- 55%. Stage 1 diastolic dysfunction. Right Ventricle Normal right ventricle. Atria The left atrium is moderately enlarged. Normal right atrium. Mitral Valve Severe mitral valve annular calcification. Mild mitral valve regurgitation. Tricuspid Valve Mild tricuspid valve regurgitation. Estimated RVSP 49 mmHg. Aortic Valve Aortic valve not well-visualized. Appears calcified. Mild aortic valve stenosis. Pulmonic Valve The pulmonic valve is not well visualized. Great Vessels The aortic root is not well visualized. Pericardium/Pleural No pericardial effusion. MMode/2D Measurements & Calculations LAV(MOD-sp4): 79.4 ml LVAd ap4: 24.1 cm2 SV(MOD-sp4): 28.4 ml LVLd ap4: 8.1 cm SI(MOD-sp4): 11.8 ml/m2 EDV(MOD-sp4): 63.6 ml EDV(sp4-el): 60.6 ml LVAs ap4: 17.4 cm2 LVLs ap4: 7.4 cm ESV(MOD-sp4): 35.2 ml ESV(sp4-el): 34.6 ml EF(MOD-sp4): 44.6 % EF(sp4-el): 42.9 % SV(sp4-el): 26.0 ml LA A4 area: 25.8 cm2 RA A4 area: 18.8 cm2 Doppler Measurements & Calculations MV E max ad: 142.7 cm/sec Ao V2 max: 198.7 cm/sec LV V1 max: 111.6 cm/sec Ao max P.9 mmHg LV V1 max P.1 mmHg Ao V2 mean: 143.0 cm/sec LV V1 mean P.8 mmHg Ao mean P.4 mmHg LV V1 mean: 73.8 cm/sec Ao V2 VTI: 41.6 cm LV V1 VTI: 22.2 cm AV (velocity ratio): 0.53 TR max ad: 331.7 cm/sec TR max P.0 mmHg ECHO/Echo Complete Interpretation Summary Technically difficult study. No parasternal images available. Mild concentric left ventricular hypertrophy. Estimated LVEF 50-55%. Stage 1 diastolic dysfunction. The left atrium is moderately enlarged. Severe mitral valve annular calcification. Mild mitral valve regurgitation. Mild tricuspid valve regurgitation. Estimated RVSP 49 mmHg. Aortic valve not well-visualized. Appears calcified. Mild aortic valve stenosis . Ordering Physician: Kaycee Green Referring Physician: Kaycee Green Performed By: Enriqueta Mcghee RCS
== END | disposition home or self-care (01) ==
LOC: CVS 12:34
PROVIDERS: PCP Family Medicine; Referring Provider Physician Assistant Medical; Visit Provider Physician Assistant Medical
DX: R06.02 Shortness of breath (principal)
CPT/HCPCS: 93306

== ENCOUNTER 2024-09-08 16:03 | Inpatient (IN) | payer MEDICARE, OTHER, SELFPAY ==
[2024-09-08] VITALS (21 sets, daily range): BP systolic 125–203; BP diastolic 84–164; PULSE 52–139; RESP 16–24; TEMP 36.8–37.3; O2SAT 91–96; BMI 45.6; BMI 43.4
--- NOTE | 2024-09-08 16:16 | EKG12_ITS ---
Test Reason : SOB Blood Pressure : */* mmHG Vent. Rate : 134 BPM Atrial Rate : * BPM P-R Int : * ms QRS Dur : 78 ms QT Int : 294 ms P-R-T Axes : * -8 99 degrees QTcB Int : 439 ms Atrial fibrillation with rapid ventricular response Inferior infarct , age undetermined Abnormal ECG Confirmed by Victoriano Hill ([id number]), purchase request editor DEWEY MACHADO ([id number]) on 09/11/2024 6:34:31 AM Referred By: Jaron Shaikh Confirmed By: Victoriano Hill
--- NOTE | 2024-09-08 16:24 | EX.ED.DYSGE1 ---
HPI History of Present Illness Chief Complaint: Shortness of Breath Detail of Chief Complaint: Shortness of breath and A-fib Informant: patient, spouse/S.O. and PCP (Dr. Tacos Sutton called prior to patient's arrival. He was seen in the office.) Onset/Context/Timing Onset: Days Context: Sudden Onset Timing: Continuous Quality: Shortness of breath, dyspnea on exertion, denies orthopnea and palpitations Location: Cardiovascular Current Severity: Moderate Maximum Severity: Severe Worsened by: Walking Relieved by: Nothing Associated Symptoms Associated Symptoms: Shortness of breath, dyspnea on exertion denies orthopnea Narrative Narrative: Patient is a 74-year-old male. He has history of paroxysmal atrial fibrillation, carotid artery disease, coronary artery disease, chronic kidney disease, COPD, anemia, dyslipidemia who was sent to the ER after his primary care physician, Dr. Tacos Sutton evaluated him. He was sent in for A-fib with RVR. According to patient and spouse this probably started several days ago. He is not certain the exact time. He does report increased shortness of breath. He states he able to walk maybe 20 feet before coming short of breath. He denies orthopnea. Denies PND. He does endorse swelling of his lower extremity. He is not presently on anticoagulant. He takes a baby aspirin a day. According to the note taken by Dr. Ortega patient declined anticoagulation therapy. Patient denies leg pain or discoloration. Patient denies history of VTE. He denies black or maroon-colored stool. He states he is on metoprolol 200 mg twice a day. He is uncertain whether it is tartrate or succinate salt form. Prior similar symptoms: Yes Recent Illness/Hospitalization: No PFSH [facility] Medical History Former tobacco use Aortic disease Carotid arterial disease ARNULFO on CPAP PAF (paroxysmal atrial fibrillation) Morbid obesity HLD (hyperlipidemia) HTN (hypertension) Non-ST elevation MT (NSTEMI) Daytime hypersomnia Morbid obesity Carotid artery disease Paroxysmal atrial fibrillation Atrial fibrillation CAD (coronary artery disease) Dyspnea on exertion Melanoma in situ Gallstones Hypertension MADI (acute kidney injury) Syncope and collapse COVID-19 SARS pneumonia Home Medications ?Medication ?Instructions ?Recorded ?Last Taken ?Type psyllium husk 0.4 gram capsule 0.4 g PO DAILY 05/13/23 09/08/24 History (Metamucil) furosemide 40 mg tablet 40 mg PO DAILY #40 tabs 05/16/23 09/08/24 Rx aspirin 81 mg tablet,delayed 81 mg PO DAILY preventative 10/28/23 11/10/23 History release potassium chloride 10 mEq 10 meq PO BID 12/22/23 09/08/24 History capsule,extended release metoprolol succinate 200 mg 200 mg PO QDAY #90 tabs 03/29/24 09/08/24 Rx tablet,extended release 24 hr polyethylene glycol 3350 17 4 g PO QDAY 03/29/24 Unknown History gram/dose oral powder (Miralax) famotidine 40 mg tablet 40 mg PO QDAY 05/04/24 09/08/24 History Allergy/AdvReac Type Severity Reaction Status Date / Time shellfish derived Allergy Severe Other Verified 09/08/24 16:19 Penicillins AdvReac Severe Other Verified 09/08/24 16:19 lisinopril AdvReac Intermediate Other Verified 09/08/24 16:19 beclomethasone (From Qvar) AdvReac Mild Nausea Verified 09/08/24 16:19 Family History Father Heart disease Mother Heart disease Brother Heart disease Mother CAD (coronary artery disease) Heart disease Hypertension Myocardial infarction Father CAD (coronary artery disease) Heart disease Hypertension Myocardial infarction Brother CAD (coronary artery disease) Heart disease Hypertension Myocardial infarction Surgical History History of cholecystectomy History of total left knee replacement History of left-sided carotid endarterectomy History of endovascular stent graft for abdominal aortic aneurysm Hx of bilateral cataract extraction S/P cholecystectomy History of colonoscopy History of foot surgery History of total left knee replacement History of left-sided carotid endarterectomy (~11/10/15) Social History household members: spouse Smoking Status: Former smoker Tobacco: How many years used: 40 how long ago did patient quit smoking: Quit 2005, smoked 3 ppd from 15 y/o until quit. alcohol intake: never substance use type: does not use caffeine: Yes (very little) ROS ROS ED Constitutional Constitutional ED: Denies chills, fever(s), subjective or sweats Eyes Eyes: Denies blurry vision or change in vision ENT ENT ED: Denies ear pain, rhinorrhea or sore throat Cardiovascular Cardiovascular: Reports palpitations and racing heartbeat; Denies chest pain, orthopnea or paroxysmal nocturnal dyspnea Respiratory/Chest Respiratory/Chest: Reports dyspnea and dyspnea on exertion; Denies cough, orthopnea or paroxysmal nocturnal dyspnea Gastrointestinal Gastrointestinal: Denies abdominal pain, melena, nausea or vomiting Genitourinary Genitourinary ED: Denies dysuria or hematuria Musculoskeletal Musculoskeletal: Denies arthralgias or myalgias Integumentary Denies rash Neurologic Neurologic: Denies headache(s) or weakness Endocrine Endocrinology: Denies cold intolerance or heat intolerance Hematologic/Lymphatic Hematologic/Lymphatic: Reports systems reviewed and no addt'l complaints, except as documented EXAM Physical Exam Const Vital Signs: 09/08/24 16:04 09/08/24 16:34 09/08/24 17:04 Temperature 99.2 F H Temperature Source Oral Pulse Rate 52 L 113 H 95 Respiratory Rate 18 22 H 23 H Respiratory Effort Respiratory Depth Respiratory Pattern Blood Pressure 152/12 H 189/141 H 169/120 H Blood Pressure Mean 58 157 136 Pulse Ox 92 96 95 Oxygen Delivery Method Room Air Room Air Room Air 09/08/24 17:04 09/08/24 18:00 09/08/24 18:28 Temperature Temperature Source Pulse Rate 106 H 139 H Respiratory Rate 23 H Respiratory Effort Short of Breath Labored Respiratory Depth Shallow Respiratory Pattern Tachypnea Blood Pressure 172/107 H 187/159 H Blood Pressure Mean 128 168 Pulse Ox 92 Oxygen Delivery Method Room Air Positive well nourished and well developed General Appearance ED: well developed; Negative for cyanotic, diaphoretic, NAD or pallor HEENT Reports moist mucous membranes HEENT Narrative: And is atraumatic normocephalic. Ears normal. Nares patent. Posterior pharynx is normal. Eyes PERRL and EOMs intact bilaterally General Eye ED: Negative for pale conjunctiva or scleral icterus Neck no lymphadenopathy, supple and no JVD Neck Narrative: Trachea is midline. There is no stridor. Chest Wall inspection of chest normal and palpation of chest normal Resp No normal respiratory effort and clear to auscultation bilaterally Cardio no murmurs Rate: tachycardic Rhythm: abnormal rhythm irregularly irregular GI normal to inspection, nondistended, normoactive bowel sounds, non-tender, non-distended and no masses; Negative for hepatosplenomegaly Back/Spine no CVA tenderness Extremity normal to inspection Extremity Narrative: There is mild pitting edema 2 mm. Neuro oriented x3, CN's II-XII intact bilaterally and no sensory deficits noted Sensorium / Orientation: alert Motor Exam: strength 5/5 throughout Psych Mood & Affect: anxious Skin no rashes or lesions noted, no wounds and skin turgor normal General Skin Exam: Negative for jaundice or pallor MDM MDM MDM Narrative Medical decision making narrative: Patient appears in respiratory distress. He is tachycardic. Monitor reveals atrial fibrillation with a rate varying between 125 and 132. Need to evaluate for cardiac ischemia, congestive heart failure, fluid overload due to renal failure as well. Workup included EKG, chest x-ray, appropriate blood work which included a troponin and BNP as well as CBC to assess H&H and BMP to assess electrolytes and renal function since he has history of chronic kidney disease. History & Record Review Additional record(s) reviewed:: Prior ED visit and Prior labs Lab Data Attestation: I reviewed the patient's lab results. Lab results narrative: CBC is unremarkable. Basic metabolic panel reveals a CO2 of 20.3 with a normal anion gap. BUN and creatinine are elevated 29 2.41 which is patient's baseline. Glucose is slightly elevated 122. BNP is elevated 18,015. Labs: Laboratory Results - last 24 hr 09/08/24 09/08/24 16:19 18:18 WBC 9.6 RBC 5.46 Hgb 14.4 Hct 45.3 MCV 83.0 MCH 26.4 L MCHC 31.8 L RDW Std Deviation 61.2 H RDW Coeff of Ambreen 21.0 H Plt Count 239 MPV 10.1 Immature Gran % (Auto) 0.600 Neut % (Auto) 84.3 H Lymph % (Auto) 5.0 L Barnes % (Auto) 9.6 Eos % (Auto) 0.1 Baso % (Auto) 0.4 Absolute Neuts (auto) 8.1 H Absolute Lymphs (auto) 0.48 L Nucleated RBC % 0 Sodium 135 Potassium 4.3 Chloride 100 Carbon Dioxide 20.3 L Anion Gap 15 BUN 29 H Creatinine 2.41 H Est GFR (MDRD) Non-Af 27 L BUN/Creatinine Ratio 12.0 Glucose 122 H Calcium 8.5 Troponin T High Sens 21 Troponin T Hi Sens 2 Hr 18 [place] [address] H Radiography Chest X-Ray - ED: 2 View and Read by ED Physician (Independently reviewed interpreted by me at 1637 as negative for any acute findings. Cardiac silhouette size normal. Lung parenchyma reveals some chronic changes. There is no evidence of cephalization or curly B-lines. There is no infiltrate. There is no evidence of effusion. Osseous structure) Diagnostic Testing: Clinical Impression(s) from Imaging Studies Chest X-Ray 09/08/24 16:25 IMPRESSION: Mild cardiomegaly and pulmonary vascular congestion. Reading Location: [facility] EKG Initial EKG: Attestation: I personally reviewed and interpreted this EKG as follows: Interpretation: Atrial Fibrillation (Rate is 134. QRS duration 70 ms. QT durations are 94 ms. [place] is normal. There is nonspecific changes small slightly due to the A-fib with RVR.) Management Discussion w/another healthcare provider: Hospitalist (Case was discussed with the hospitalist Dr. Jaron Orr. Full admit PCU patient was started on Eliquis. Dose was reduced to 2.5 mg.) Treatment and Re-Evaluation :: Patient's heart rate improved with metoprolol. Since patient clinically has mild fluid overload we will administer Lasix in the emergency department discharge with prescription for Lasix. Since patient's vitals improved with a respirate of 18 he is no longer tachycardic plan is to discharge to home unless his symptoms worsen prior to the second troponin resulting. Comments:: Patient was reassessed at 1833. With minimal activity taking 2 steps he became quite tachypneic with respiratory distress and heart rate of 130+. Suspect patient will require admission. Vital Sign Attestation:: Patient was reassessed. His heart rate is rapid. Between 120 and 135. Discussed anticoagulation. He is willing to go on anticoagulant. Eliquis was ordered. Hospitalist was paged as well. Discharge Plan Dx/Rx/DC Orders Clinical Impression: Atrial fibrillation with RVR, CAD (coronary artery disease), Obstructive sleep apnea, CKD (chronic kidney disease), Dyslipidemia, Acute CHF (congestive heart failure), Elevated blood pressure reading with diagnosis of hypertension, BMI 45.0-49.9, adult Disposition Disposition: Acute Care Hospital [facility]
--- NOTE | 2024-09-08 16:25 | RAD_ITS ---
PROCEDURE: CHEST PA AND LATERAL 09/08/2024 REASON FOR EXAM: DYSPNEA AND PEDAL EDEMA TECHNIQUE: Frontal and lateral views of the chest. COMPARISON: Chest radiograph 08/14/2024 FINDINGS: Hardware: EKG wires overlie the heart. Heart: Heart size is mildly enlarged with mild pulmonary vascular congestion. Mediastinum: There are atherosclerotic calcifications of the thoracic aorta. Lungs: No focal consolidation, pleural effusion or pneumothorax. Bones: Degenerative changes are identified within the thoracic spine. RAD/Chest PA and Lateral IMPRESSION: Mild cardiomegaly and pulmonary vascular congestion. Reading Location: [id number]
[2024-09-08] MEDS: Metoprolol Tartrate 5 MG/5 ML Vial IV ×2 (16:34→18:28)
[2024-09-08 16:39] LABS: Absolute Lymphocyte Count 0.48 X10^3/uL (0.83-4.51); Absolute Neutrophil Count 8.1 X10^3/uL (2.0-7.7); Basophil# 0.04 X10^3/uL; Basophil% 0.4 % (0-1); Eosinophil# 0.01 X10^3/uL; Eosinophils% 0.1 % (0-5); Hematocrit 45.3 % (40-54); Hemoglobin 14.4 g/dL (13.0-16.5); Lymphocyte # 0.48 X10^3/ul (0.83-4.51); Mean Corp Hgb Conc 31.8 g/dL (32-36); Mean Corpuscular Hgb 26.4 pg (27.0-32.0); Mean Platelet Vol. 10.1 fl (6.2-12.0); Monocyte# 0.92 X10^3/uL; Monocyte% 9.6 % (0-10); NRBC Flagged by Analyzer 0 % (0-5); Neutrophil % 84.3 % (47-70); POSITIVE DIFFERENTIAL YES; POSITIVE MORPHOLOGY YES; Platelet Count 239 K/mm3 (150-450); RBC Distribution Width SD 61.2 fl (35.1-43.9); Red Blood Count 5.46 M/mm3 (4.6-6.2); White Blood Count 9.6 K/mm3 (4.4-11.0)
[2024-09-08 16:44] LABS: Differential Indicated SCAN CRITERIA MET
[2024-09-08 17:09] LABS: Anion Gap 15 (5-15); BUN 29 mg/dL (4-19); Calcium,Total 8.5 mg/dL (7.6-11.0); Carbon Dioxide 20.3 mmol/L (21.0-32.0); Chloride 100 mmol/L (98-108); Creatinine, Serum 2.41 mg/dL (0.70-1.20); EST Glomerular Filtration Rate 27 (>60); Glucose 122 mg/dL (70-99); Potassium 4.3 mmol/L (3.3-5.1); Pro- Brain NATRIURETIC PEPTIDE 18015 pg/mL (<=900); Sodium Level 135 mmol/L (133-145)
[2024-09-08 17:21] LABS: Troponin T High Sensitivity 21 ng/L (<=22)
[2024-09-08] MEDS: Furosemide 20 MG/2 ML VIAL IV (18:28)
[2024-09-08 18:52] LABS: Troponin T High Sens 2 HR 18 ng/L (<=22)
--- NOTE | 2024-09-08 19:17 | PCM.HP.STD ---
[facility] General Date of Admission: 09/08/24 Date of Service: 09/08/24 Chief Complaint: SOB and Palpitations. HPI Narrative EDIL ZHU, is a 74 M with a past medical history of essential hypertension; on metoprolol and furosemide, history of dyslipidemia; currently not on treatment, former tobacco abuse (quit 2005); with subsequent COPD, morbid obesity; with BMI of 45.6 this admission, ARNULFO; on CPAP, CAD; s/p non-ST elevation MN, history of paroxysmal atrial fibrillation; on BASA daily but not currently on anticoagulation at time of admission, history of chronic diastolic CHF; with LVEF 60% with stage I diastolic dysfunction and [id number] ~1-2+ tricuspid valve insufficiency with pulmonary artery systolic pressure ~40 mmHg (10/2023), history of aortic stenosis, history of carotid artery disease; s/p Left CEA (2015), history of AAA; s/p endovascular stent graft, history of melanoma in situ; s/p excision, CKD; stage IIIb, history of COVID-19, history of syncope and collapse, history of cholecystectomy, GERD; on famotidine and OA; s/p Left TKR who presents to [facility] ER complaining of shortness of breath palpitations. Mr. Zhu reports his symptoms began several days prior to admission with patient not sure of exact time of onset but with a gradual-onset of dyspnea on exertion with patient only able to walk about 20 feet before becoming very short of breath. He went to see his PCP, Dr. Tacos Sutton, who evaluated him and recommended he come to the ER for further evaluation and treatment. He also admits to severe palpitations and heart racing similar to his previous bouts of paroxysmal atrial fibrillation. He also admits to ~2+ bilateral lower extremity pitting edema. He denies associated fever, chills, changes in vision, runny nose, sore throat, ear pain, chest pain, orthopnea, PND, abdominal pain, nausea, vomiting, diarrhea, constipation, dysuria, hematuria, arthralgias, myalgias, headache or rash. In the ER he was noted to have a highly elevated blood pressure of 187/159 mmHg consistent with Hypertensive Emergency complicated by EKG evidence of PAF; with RVR@~139 bpm with both of these issues combining to cause AE of chronic diastolic CHF; evidenced by highly elevated NT pro-BNP II of 18,015 pg/mL present on admission with corresponding CXR that revealed mild cardiomegaly and pulmonary vascular congestion and he was then admitted to the PCU for ongoing care for a stay that is expected to extend beyond 2 midnights. [facility] Medical History (Updated 09/08/24 @ 19:[address] Jaron Shaikh DO) Non-ST elevation MN (NSTEMI) Former tobacco use Aortic disease Carotid arterial disease ARNULFO on CPAP PAF (paroxysmal atrial fibrillation) Morbid obesity HLD (hyperlipidemia) HTN (hypertension) Daytime hypersomnia Morbid obesity Carotid artery disease Paroxysmal atrial fibrillation Atrial fibrillation CAD (coronary artery disease) Dyspnea on exertion Melanoma in situ Gallstones Hypertension MADI (acute kidney injury) Syncope and collapse COVID-19 SARS pneumonia Home Medications ?Medication ?Instructions ?Recorded ?Last Taken ?Type psyllium husk 0.4 gram capsule 0.4 g PO DAILY 05/13/23 09/08/24 History (Metamucil) furosemide 40 mg tablet 40 mg PO DAILY #40 tabs 05/16/23 09/08/24 Rx aspirin 81 mg tablet,delayed 81 mg PO DAILY preventative 10/28/23 11/10/23 History release potassium chloride 10 mEq 10 meq PO BID 12/22/23 09/08/24 History capsule,extended release metoprolol succinate 200 mg 200 mg PO QDAY #90 tabs 03/29/24 09/08/24 Rx tablet,extended release 24 hr polyethylene glycol 3350 17 4 g PO QDAY 03/29/24 Unknown History gram/dose oral powder (Miralax) famotidine 40 mg tablet 40 mg PO QDAY 05/04/24 09/08/24 History Allergy/AdvReac Type Severity Reaction Status Date / Time shellfish derived Allergy Severe Other Verified 09/08/24 16:19 Penicillins AdvReac Severe Other Verified 09/08/24 16:19 lisinopril AdvReac Intermediate Other Verified 09/08/24 16:19 beclomethasone (From Qvar) AdvReac Mild Nausea Verified 09/08/24 16:19 Family History Father Heart disease Mother Heart disease Brother Heart disease Mother CAD (coronary artery disease) Heart disease Hypertension Myocardial infarction Father CAD (coronary artery disease) Heart disease Hypertension Myocardial infarction Brother CAD (coronary artery disease) Heart disease Hypertension Myocardial infarction Surgical History History of cholecystectomy History of total left knee replacement History of left-sided carotid endarterectomy History of endovascular stent graft for abdominal aortic aneurysm Hx of bilateral cataract extraction S/P cholecystectomy History of colonoscopy History of foot surgery History of total left knee replacement History of left-sided carotid endarterectomy (~11/10/15) Social History household members: spouse Smoking Status: Former smoker Tobacco: How many years used: 40 how long ago did patient quit smoking: Quit 2005, smoked 3 ppd from 15 y/o until quit. alcohol intake: never substance use type: does not use caffeine: Yes (very little) ROS ROS Narrative Review of Systems: Constitutional: Patient denies fever or chills. Eyes: Patient denies change in vision or discharge from eyes. ENT: Patient denies runny nose, sore throat or ear pain. Resp: Patient admits to dyspnea on exertion as per HPI. He denies cough. CV: Patient admits to palpitations and heart racing as per HPI. He denies chest pain, orthopnea or PND. GI: Patient denies abdominal pain, nausea, vomiting, diarrhea or constipation. : Patient denies dysuria, hematuria urinary frequency. MSK: Patient denies arthralgias or myalgias. Skin: Patient denies rash, abscess, wounds or jaundice. Psych: Patient denies symptoms of uncontrolled depression or anxiety. Neuro: Patient denies headache, paresthesias or focal neurologic deficits. Allergy: Patient denies lip swelling, tongue swelling or urticaria. Hematology: Patient denies easy bleeding or easy bruisability. Endocrinology: Patient denies polyuria, polydipsia, polyphagia or heat/cold intolerance. 14 point ROS otherwise negative save for positives noted above in HPI. Vital Signs Vital Signs Vital Signs: 09/08/24 16:04 09/08/24 16:34 09/08/24 17:04 Temperature 99.2 F H Temperature Source Oral Pulse Rate 52 L 113 H 95 Respiratory Rate 18 22 H 23 H Respiratory Effort Respiratory Depth Respiratory Pattern Blood Pressure 152/12 H 189/141 H 169/120 H Blood Pressure Mean 58 157 136 Pulse Ox 92 96 95 Oxygen Delivery Method Room Air Room Air Room Air 09/08/24 17:04 09/08/24 18:00 09/08/24 18:28 Temperature Temperature Source Pulse Rate 106 H 139 H Respiratory Rate 23 H Respiratory Effort Short of Breath Labored Respiratory Depth Shallow Respiratory Pattern Tachypnea Blood Pressure 172/107 H 187/159 H Blood Pressure Mean 128 168 Pulse Ox 92 Oxygen Delivery Method Room Air Weight Weight: 299 lb 13.259 oz Body Mass Index (BMI) 45.6 Physical Exam Const alert and oriented x3 Constitutional Narrative: Mild distress noted and morbidly obese chronically ill-appearing patient. HEENT normocephalic, head/scalp atraumatic, hearing grossly normal bilaterally and moist oral mucous membranes Eyes PERRL, EOMs intact bilaterally and conjunctivae normal Neck no lymphadenopathy, supple and no JVD Resp Resp Narrative: Diminished breath sounds throughout with bibasilar rales. Auscultation: rales Cardio Cardio Narrative: Irregularly irregular and tachycardic in the ~130 bpm range. GI normal to inspection, nondistended, normoactive bowel sounds, soft to palpation, non-tender and non-distended GI Narrative: Morbidly obese. Extremity Extremity Narrative: ~2+ bilateral lower extremity pitting edema. Skin Skin Narrative: Patient has evidence of rash, abscess, wounds or jaundice. Neuro oriented x3, CN's II-XII intact bilaterally, moves all extremities and no focal motor deficits Sensorium / Orientation: awake, alert, oriented to person, oriented to place and oriented to time Speech: speech normal Psych affect normal Results Medical Records Data Attestation: I reviewed the patient's medical records Lab / Micro Data Attestation: I reviewed the patient's lab results. 09/09/24 07:24 09/09/24 07:24 Labs: Laboratory Results - last 24 hr 09/08/24 16:19: WBC 9.6, RBC 5.46, Hgb 14.4, Hct 45.3, MCV 83.0, MCH 26.4 L, MCHC 31.8 L, RDW Std Deviation 61.2 H, RDW Coeff of Ambreen 21.0 H, Plt Count 239, MPV 10.1, Immature Gran % (Auto) 0.600, Neut % (Auto) 84.3 H, Lymph % (Auto) 5.0 L, [place] % (Auto) 9.6, Eos % (Auto) 0.1, Baso % (Auto) 0.4, Absolute Neuts (auto) 8.1 H, Absolute Lymphs (auto) 0.48 L, Nucleated RBC % 0, Sodium 135, Potassium 4.3, Chloride 100, Carbon Dioxide 20.3 L, Anion Gap 15, BUN 29 H, Creatinine 2.41 H, Est GFR (MDRD) Non-Af 27 L, BUN/Creatinine Ratio 12.0, Glucose 122 H, Calcium 8.5, Troponin T High Sens 21, [place] [address] H 09/08/24 18:18: Troponin T Hi Sens 2 Hr 18 Imaging Radiology Impression Chest X-Ray 09/08/24 16:25 IMPRESSION: Mild cardiomegaly and pulmonary vascular congestion. Reading Location: [facility] Assessment & Plan Assessment/Plan (1) Hypertensive emergency: (2) Paroxysmal atrial fibrillation with rapid ventricular response: (3) Acute CHF (congestive heart failure): QUALIFIERS: Heart failure type: diastolic Qualified Code(s): I50.31 - Acute diastolic (congestive) heart failure (4) BMI 45.0-49.9, adult: (5) Obstructive sleep apnea: (6) CAD (coronary artery disease): QUALIFIERS: Associated angina: without angina Coronary Disease-Associated Artery/Lesion type: unspecified vessel or lesion type [place] vs. transplanted heart: [place] heart Qualified Code(s): I25.10 - Atherosclerotic heart disease of [place] coronary artery without angina pectoris (7) CKD (chronic kidney disease): QUALIFIERS: Chronic kidney disease stage: stage 3 (moderate) Chronic kidney disease stage 3 subtype: stage 3b (GFR 30-44) Qualified Code(s): N18.32 - Chronic kidney disease, stage 3b PLAN: Plan 1. Hypertensive Emergency; evidenced by highly elevated blood pressure of 187/159 mmHg noted shortly after admission - Admit to PCU. Continue oral metoprolol and IV furosemide plus give prn IV hydralazine for systolic blood pressure > 160 mmHg. Give acetaminophen as needed for [id number] (level 1-5/10) pain or fever. Give morphine IV as needed for severe (level 6-10/10) pain. Finally, we will consult [facility] see this patient on rounds in the a.m. for further recommendations given his myriad acute/chronic cardiac issues, with help appreciated in advance. 2. EKG evidence of PAF; with RVR@~139 bpm complicating #1 - Start IV Cardizem and titrate to keep heart rate less than or equal to 100 bpm. Patient ordered renally-dosed apixaban in ER which will be continued. 3. AE of chronic diastolic CHF; evidenced by highly elevated NT pro-BNP II of 18,015 pg/mL present on admission with corresponding CXR that revealed mild cardiomegaly and pulmonary vascular congestion and clinical exam that confirmed ~2+ bilateral lower extremity pitting edema attributable to #1 & #2 - Maintain IV furosemide begun in ER and give supplemental KCl and magnesium. Check limited echocardiogram to evaluate LVEF. 4. Morbid Obesity; with BMI of 45.6 this admission plus ARNULFO; on CPAP adding to the burden of disease outlined from #1 - #4 - Weight loss will be recommended. Check TSH. Resume nocturnal CPAP as before. This complicates his case and may hamper recovery. 5. CAD; s/p non-ST elevation MN adding to the medical complexity of #1 - #4 - Serialize troponin. 6. CKD; stage IIIb amplifying the negative effects of #1 - #5 - Check renal indices daily to follow trend. 7. History of dyslipidemia; currently not on treatment - Check Lipid Profile to confirm status. 8. Former tobacco abuse (quit 2005); with subsequent COPD - Stable with no evidence of acute flare. Continue prn nebulizers. 9. History of aortic stenosis - Noted. Echocardiogram to evaluate LVEF. 10. History of carotid artery disease; s/p Left CEA (2015) - Noted. 11. History of AAA; s/p endovascular stent graft - Stable. 12. History of melanoma in situ; s/p excision - Noted. 13. History of COVID-19 - Noted. 14. History of syncope and collapse - Noted with no evidence of recurrence. 15. History of cholecystectomy - Noted. 16. GERD; on famotidine - Maintain current regimen. 17. OA; s/p Left TKR - Give acetaminophen prn as per pain scale outlined in #1. 18. DVT prophylaxis - Patient started on renally-dosed apixaban for #2. Total time: Approximately (but not less than) 75 minutes. Charges/Coding Visit Charges Inpatient E&M: 98120 Init Hosp L3
[2024-09-08] MEDS: APIXABAN 2.5 MG TABLET (WCH) PO (19:50)
[2024-09-08 20:13] LABS: Anisocytosis 1+; Platelet Estimate ADEQUATE (ADEQ)
[2024-09-08 20:34] LABS: Magnesium 2.1 mg/dL (1.5-2.2)
[2024-09-08] MEDS: Diltiazem 125 MG in Dextrose 5%-Water (100mL Bag) 100 ML IV (21:05)
[2024-09-08] MEDS: Magnesium Chloride 64 MG Delay Rel.Tablet 128 MG PO (22:19)
[2024-09-08 22:40] LABS: Hemoglobin A1c 6.3 % (<=5.6)
[2024-09-08] MEDS: hydrALAZINE 20 MG/ML Vial 5 MG IV (22:58)
[2024-09-08 23:40] LABS: Troponin T High Sens 4 HR 21 ng/L (<=22)
[2024-09-09] VITALS (26 sets, daily range): BP systolic 127–206; BP diastolic 74–119; PULSE 62–105; RESP 16–26; TEMP 35.9–36.6; O2SAT 93–97; BMI 43.4
[2024-09-09] MEDS: Diltiazem 125 MG in Dextrose 5%-Water (100mL Bag) 100 ML 15 MG IV ×2 (06:32→14:36)
[2024-09-09 07:47] LABS: Absolute Lymphocyte Count 0.79 X10^3/uL (0.83-4.51); Absolute Neutrophil Count 4.3 X10^3/uL (2.0-7.7); Basophil# 0.04 X10^3/uL; Basophil% 0.7 % (0-1); Eosinophil# 0.03 X10^3/uL; Eosinophils% 0.5 % (0-5); Hematocrit 43.4 % (40-54); Hemoglobin 13.9 g/dL (13.0-16.5); Lymphocyte # 0.79 X10^3/ul (0.83-4.51); Lymphocyte % 13.2 % (19-41); Mean Corpuscular Hgb 26.4 pg (27.0-32.0); Mean Corpuscular Volume 82.4 fL (80-94); Mean Platelet Vol. 9.7 fl (6.2-12.0); Monocyte# 0.84 X10^3/uL; Monocyte% 14.1 % (0-10); NRBC Flagged by Analyzer 0 % (0-5); Neutrophil # 4.25 X10^3/uL (2.7-7.7); Neutrophil % 71.2 % (47-70); POSITIVE MORPHOLOGY YES; Platelet Count 195 K/mm3 (150-450); RBC Distribution Width CV 20.6 % (11.6-14.6); RBC Distribution Width SD 59.5 fl (35.1-43.9); Red Blood Count 5.27 M/mm3 (4.6-6.2)
[2024-09-09 07:51] LABS: Differential Indicated SCAN CRITERIA MET
[2024-09-09] MEDS: APIXABAN 2.5 MG TABLET (WCH) PO ×2 (08:05→22:11)
[2024-09-09] MEDS: Magnesium Chloride 64 MG Delay Rel.Tablet 128 MG PO ×2 (08:05→22:11)
[2024-09-09] MEDS: Famotidine 20 MG Tablet PO (08:05)
[2024-09-09] MEDS: Metoprolol(XL)Succ 200 MG Tablet PO (08:05)
[2024-09-09] MEDS: Potassium Chloride Oral Tablet 10 MEQ PO ×2 (08:06→17:29)
[2024-09-09] MEDS: Aspirin E.C. 81 MG Tablet PO (08:06)
[2024-09-09] MEDS: Furosemide 40 MG/4 ML Vial IV ×2 (08:06→17:29)
[2024-09-09 08:11] LABS: ALB/GLOB Ratio 0.8 RATIO (0.9-2.4); AST(SGOT) 22 U/L (<=37); Alanine Aminotransfer ALT/SGPT 12 U/L (<=46); Albumin, Serum 3.4 g/dL (3.4-4.8); Alkaline Phosphatase 98 U/L (40-129); Anion Gap 15 (5-15); BUN 34 mg/dL (4-19); BUN/Creat Ratio 13.6 RATIO (10-20); Calcium,Total 8.5 mg/dL (7.6-11.0); Carbon Dioxide 18.6 mmol/L (21.0-32.0); Chloride 100 mmol/L (98-108); Cholesterol 127 mg/dL (<=200); Creatinine, Serum 2.52 mg/dL (0.70-1.20); EST Glomerular Filtration Rate 26 (>60); Estimated Creatinine Clearance 34.84 ml/min (50-250); Globulin 4.3 g/dL (2.2-4.2); Glucose 97 mg/dL (70-99); High Density Lipoprotein 45 mg/dL; Low Density Lipoprotein Calc. 64 mg/dL; Phosphorus 3.7 mg/dL (2.7-4.5); Potassium 3.6 mmol/L (3.3-5.1); Protein, Total 7.7 g/dL (5.9-8.4); Sodium Level 133 mmol/L (133-145); Total Bilirubin 0.67 mg/dL (0.00-1.30); Triglycerides 92 mg/dL; Very Low Density Lipoprotein 18 mg/dL (5-40); cholesterol:hdl ratio screen 2.84
[2024-09-09 08:25] LABS: Differential Comment SCANNED
[2024-09-09 08:26] LABS: Anisocytosis 2+
[2024-09-09] MEDS: hydrALAZINE 20 MG/ML Vial 5 MG IV ×2 (09:28→22:11)
--- NOTE | 2024-09-09 09:58 | PCM.PN.HOSP ---
Reason for Visit Reason for Visit: Diagnoses Obstructive sleep apnea (adult) (pediatric) (09/08/24) Hypertensive emergency (09/08/24) Paroxysmal atrial fibrillation (09/08/24) Heart failure, unspecified (09/08/24) Chronic kidney disease, unspecified (09/08/24) Body mass index [BMI] 45.0-49.9, adult (09/08/24) Subjective Subjective Patient taken off of the Cardizem drip, feeling better overall, has had some lower GI upset and was found to have the flu, denies any chest pain Objective Data Objective Data Vital Signs: Vital Signs Temp Pulse Resp BP Pulse Ox O2 Del Method FiO2 97.2 F L 97 18 148/98 H 96 Room Air 21 09/09/24 08:02 09/09/24 09:28 09/09/24 04:00 09/09/24 04:00 09/09/24 04:00 09/09/24 08:22 09/09/24 02:05 Oxygen Delivery Method Room Air Weight: 133.4 kg Body Mass Index (BMI) 43.4 Intake & Output: Intake and Output for Last 24 Hours 09/07/24 09/08/24 09/09/24 23:59 23:59 23:59 Intake Total 23.33 / 27.08 101.67 / 101.67 Balance 23.33 / 27.08 101.67 / 101.67 Lab / Micro Data 09/09/24 07:24 09/09/24 07:24 Labs: Laboratory Results - last 24 hr 09/08/24 16:19: WBC 9.6, RBC 5.46, Hgb 14.4, Hct 45.3, MCV 83.0, MCH 26.4 L, MCHC 31.8 L, RDW Std Deviation 61.2 H, RDW Coeff of Ambreen 21.0 H, Plt Count 239, MPV 10.1, Immature Gran % (Auto) 0.600, Neut % (Auto) 84.3 H, Lymph % (Auto) 5.0 L, [place] % (Auto) 9.6, Eos % (Auto) 0.1, Baso % (Auto) 0.4, Absolute Neuts (auto) 8.1 H, Absolute Lymphs (auto) 0.48 L, Nucleated RBC % 0, Platelet Estimate ADEQUATE, Anisocytosis 1+, Sodium 135, Potassium 4.3, Chloride 100, Carbon Dioxide 20.3 L, Anion Gap 15, BUN 29 H, Creatinine 2.41 H, Est GFR (MDRD) Non-Af 27 L, BUN/Creatinine Ratio 12.0, Glucose 122 H, Calcium 8.5, Troponin T High Sens 21, [place] [address] H 09/08/24 16:26: Hemoglobin A1c 6.3 H, TSH 1.120 09/08/24 18:18: Magnesium 2.1, Troponin T Hi Sens 2 Hr 18 09/08/24 22:53: Troponin T Hi Sens 4Hr 21 09/09/24 07:24: WBC 6.0, RBC 5.27, Hgb 13.9, Hct 43.4, MCV 82.4, MCH 26.4 L, MCHC 32.0, RDW Std Deviation 59.5 H, RDW Coeff of Ambreen 20.6 H, Plt Count 195, MPV 9.7, Immature Gran % (Auto) 0.300, Neut % (Auto) 71.2 H, Lymph % (Auto) 13.2 L, [place] % (Auto) 14.1 H, Eos % (Auto) 0.5, Baso % (Auto) 0.7, Absolute Neuts (auto) 4.3, Absolute Lymphs (auto) 0.79 L, Nucleated RBC % 0, Differential Comment SCANNED, Anisocytosis 2+, Sodium 133, Potassium 3.6, Chloride 100, Carbon Dioxide 18.6 L, Anion Gap 15, BUN 34 H, Creatinine 2.52 H, Estim Creat Clear Calc 34.84 L, Est GFR (MDRD) Non-Af 26 L, BUN/Creatinine Ratio 13.6, Glucose 97, Calcium 8.5, Phosphorus 3.7, Total Bilirubin 0.67, AST 22, ALT 12, Alkaline Phosphatase 98, Total Protein 7.7, Albumin 3.4, Globulin 4.3 H, Albumin/Globulin Ratio 0.8 L, Triglycerides 92, Cholesterol 127, LDL Cholesterol, Calc 64, VLDL Cholesterol 18, HDL Cholesterol 45, Cholesterol/HDL Ratio 2.84 Radiography Diagnostic Testing: Radiology Impression Chest X-Ray 09/08/24 16:25 IMPRESSION: Mild cardiomegaly and pulmonary vascular congestion. Reading Location: [facility] Physical Exam Narrative General: Alert, oriented, no apparent distress HEENT: Atraumatic, normocephalic Eyes: Anicteric, normal conjunctiva, extraocular movements grossly intact Neck: Supple Respiratory: Somewhat diminished at the bases but seems largely due to habitus, normal respiratory effort Cardiovascular: Irregularly irregular, not tachycardic GI: Slightly firm without any tenderness, rebound, guarding, rigidity Extremities: No significant pitting edema Musculoskeletal: Moving all extremities Neuro: No overt focal neurological deficits Skin: No rashes appreciated Psych: Cooperative Assessment & Plan Assessment/Plan (1) Paroxysmal atrial fibrillation with rapid ventricular response: PLAN: Plan #Afib w/ RVR - Patient presented with increased shortness of breath for several days and was found to be in A-fib and RVR in his PCPs office and sent to the ED -EKG revealed tachycardia and monitor with A-fib with rates between 125 and 132 - Has declined anticoagulation therapy per ED and cardiology notes, was placed on renally dosed apixaban here, will need to assess if patient is willing to take this long-term - Patient admitted on diltiazem drip - Resume metoprolol - Cardiology consult- -discussed with cardiology, patient is now on p.o. Cardizem and drip discontinued - Possible DC tomorrow if patient doing well/stable # Acute exacerbation of chronic heart failure with preserved ejection fraction -Admit to telemetry -proBNP 18,000 -CXR with mild cardiomegaly and pulmonary vascular congestion -Continue IV lasix -Last echo just completed 08/17/2024 and demonstrated stage I diastolic dysfunction with RVSP of 49 - No repeat echo ordered at this time, suspect that the fluid overload is due to the RVR on top of his stage I diastolic dysfunction and controlling rate and increasing Lasix temporarily will improve -Daily weights, I's and O's -Fluid restriction, heart healthy diet # CKD stage IV -Appears to be at baseline -Avoid nephrotoxic agents -Daily BMPs # History of left-sided carotid endarterectomy - Takes aspirin # Diarrhea - Patient has been having diarrhea, standing stool samples #Morbid obesity -BMI documented as 43.4 kg/m? at time of admission -Complicates treatment, prognosis, outcomes -Recommend weight loss and lifestyle changes #ARNULFO -Continue home NIPPV if applicable #DVT ppx: On Kimberly Bauer MD Charges/Coding Visit Charges Inpatient E&M: 19083 Subs Hosp L2
--- NOTE | 2024-09-09 13:12 | CASEMGMT ---
PAWEL AVILA Assessment: Face to Face with pt for initial transition planning/care coordination assessment. RN AUSTIN introduced self and role at [facility], pt voices understanding and consents to assessment. Pt is A&O x4 and answers all questions appropriately at this time. Pt sitting up in bed in no distress. Care providers, pharmacy, and demographics verified/updated. Admitting Dx: hypertensive emergency, PAF with RVR, AE CHF PCP:Herman Specialists:Justin, cardio; Ali, GI; Prim, vasc Preferred Pharmacy: [facility] Insurance: Dhiraj VICK Prescription Benefit: yes LNOK: Saundra Zhu, Living Arrangements: Pt lives with in a single story home with 2 steps to enter. Pt reports he is I in ADL/IADLs but does most IADLs. Pt denies concerns at home. Transportation: Pt drives self and denies concerns with transportation. DME:shower chair, cane, walker- Doesn't use AD HHC/SNF: Denies hx of Pt states no concerns with going home at time of dc. Pt may benefit from education but is not homebound for HHC. 6 cl=24. Provided pt with an [employer] savings card and explanation provided. Pt states no further concerns/needs. CM to follow. Advised pt to ask CM if any further questions/concerns/needs arise, voices understanding. Pt Goal: Home Plan: Home, eliquis card given Liv ARMAS CM
--- NOTE | 2024-09-09 14:28 | CON.PCM.CA_ITS ---
Assessment & Plan Assessment/Plan (1) Carotid artery disease: (2) CKD (chronic kidney disease): QUALIFIERS: Chronic kidney disease stage: stage 3 (moderate) C hronic kidney disease stage 3 subtype: stage 3b (GFR 30-44) Qualified Code(s): N18.32 - Chronic kidney disease, stage 3b (3) Atrial fibrillation with RVR: PLAN: 74-year-old patient presented to ED at [facility] complaining of symptoms of shortness of breath. Patient has multiple medical comorbidities with history of paroxysmal atrial fibrillation, carotid artery disease, coronary artery disease and CKD. Longstanding history of COPD with anemia And dyslipidemia. Evaluation during this admission noted he had underlying atrial fibrillation with a rapid ventricular rate and started on Cardizem IV he has been already on beta-gurwinder with metoprolol of 200 mg. Also had hypertension blood pressure was not well-controlled. Patient seen and evaluated the and discussed with the nursing staff Review of the cardiac telemetry showed improvement in the ventricular rate on the current treatment Cardiac care plan recommendations; 1. Added Cardizem CD to his current treatment For better control of ventricular rate 2. Patient has been on anticoagulation and based of his renal function and his age she was given the lower dose 2.5 mg of Eliquis twice daily Review all the current evaluation and his follow-up in the office. Patient has prior echocardiogram which showed LV function is preserved He had a mild elevation of high sensitive troponin This is secondary to type II ND in the setting of CKD and elevated creatinine. From cardiac standpoint no further follow-up would be required during this admission Noted patient tested positive for influenza during this admission. Patient to follow-up with primary engraver ornamental design for continuation of cardiac care. HPI Consult Data Date of Consult: 09/09/24 HPI Narrative Reason for Consultation: Patient with persistent atrial fibrillation HPI Narrative: EDIL DONALDSON, is a 74 M who presents [facility] Medical History (Updated 09/08/24 @ 19:[address] Jaron Shaikh, DO) Non-ST elevation ND (NSTEMI) Former tobacco use Aortic disease Carotid arterial disease ARNULFO on CPAP PAF (paroxysmal atrial fibrillation) Morbid obesity HLD (hyperlipidemia) HTN (hypertension) Daytime hypersomnia Morbid obesity Carotid artery disease Paroxysmal atrial fibrillation Atrial fibrillation CAD (coronary artery disease) Dyspnea on exertion Melanoma in situ Gallstones Hypertension MADI (acute kidney injury) Syncope and collapse COVID-19 SARS pneumonia Home Medications ?Medication ?Instructions ?Recorded ?Last Taken ?Type psyllium husk 0.4 gram capsule 0.4 g PO DAILY 05/13/23 09/08/24 History (Metamucil) furosemide 40 mg tablet 40 mg PO DAILY #40 tabs 04/3009/08/24 Rx aspirin 81 mg tablet,delayed 81 mg PO DAILY preventati ve 10/28/23 11/10/23 History release potassium chloride 10 mEq 10 meq PO BID 12/22/2309/08 History capsule,extended release metoprolol succinate 200 mg 200 mg PO QDAY #90 tabs 09/08/24 Rx tablet,extended release 24 hr polyethylene glycol 3350 17 4 g PO QDAY 03/29/24 Unkno wn History gram/dose oral powder (Miralax) famotidine 40 mg tablet 40 mg PO QDAY 05/04/2409/08 History Allergy/AdvReac Type Severity Reaction Status Date / Time shellfish derived Allergy Severe Other Verified 09/08/24 16:19 Penicillins AdvReac Severe Other Verified 09/08/24 16:19 lisinopril AdvReac Intermediate Other Verified 09/08/24 16:19 beclomethasone (From Qvar) AdvReac Mild Nausea Verified 09/08/24 16:19 Family History Father Heart disease Mother Heart disease Brother Heart disease Mother CAD (coronary artery disease) Heart disease Hypertension Myocardial infarction Father CAD (coronary artery disease) Heart disease Hypertension Myocardial infarction Brother CAD (coronary artery disease) Heart disease Hypertension Myocardial infarction Surgical History History of cholecystectomy History of total left knee replacement History of left-sided carotid endarterectomy History of endovascular stent graft for abdominal aortic aneurysm Hx of bilateral cataract extraction S/P cholecystectomy History of colonoscopy History of foot surgery History of total left knee replacement History of left-sided carotid endarterectomy (~11/10/15) Social History household members: spouse Smoking Status: Former smoker Tobacco: How many years used: 40 how long ago did patient quit smoking: Quit 2005, smoked 3 ppd from 15 y/o until quit. alcohol intake: never substance use type: does not use caffeine: Yes (very little) Physical Exam Cardio Cardio Narrative: Alert orientated comfortable in bed No symptoms reported petrophysicist reviewed which showed underlying atrial fibrillation with controlled ventricular rate. Stable hemodynamically Card exam S1-S2 irregular Chest exam clear to auscultation bilateral. Risk Stratification Risk Stratification Applicable: No Objective Data Vital Signs: Vital Signs Temp Pulse Resp BP Pulse Ox O2 Del Method FiO2 97.2 F L 74 20 H 152/111 H 95 Room Air 21 09/09/24 08:02 09/09/24 13:30 09/09/24 13:30 09/09/24 13:30 09/09/24 13:30 09/09/24 13:30 09/09/24 02:05 Oxygen Delivery Method Room Air Weight: 294 lb 1.546 oz Body Mass Index (BMI) 43.4 Intake & Output: Intake and Output for Last 24 Hours 09/07/24 09/08/24 09/09/24 23:59 23:59 23:59 Intake Total 23.33 / 27.08 406.17 / 406.17 Output Total 2 / 2 Balance 23.33 / 27.08 404.17 / 404.17 Lab / Micro Data 09/09/24 07:24 09/09/24 07:24 Labs: Laboratory Results - last 24 hr 09/08/24 16:19: WBC 9.6, RBC 5.46, Hgb 14.4, Hct 45.3, MCV 83.0, MCH 26.4 L, M CHC 31.8 L, RDW Std Deviation 61.2 H, RDW Coeff of Ambreen 21.0 H, Plt Count 239, MPV 10.1, Immature Gran % (Auto) 0.600, Neut % (Auto) 84.3 H, Lymph % (Auto) 5.0 L, Menard % (Auto) 9.6, Eos % (Auto) 0.1, Baso % (Auto) 0.4, Absolute Neuts (auto) 8.1 H, Absolute Lymphs (auto) 0.48 L, Nucleated RBC % 0, Platelet Estimate ADEQUATE, Anisocytosis 1+, Sodium 135, Potassium 4.3, Chloride 100, Carbon Dioxide 20.3 L, Anion Gap 15, BUN 29 H, Creatinine 2.41 H, Est GFR (MDRD) Non-Af 27 L, BUN/Creatinine Ratio 12.0, Glucose 122 H, Calcium 8.5, Troponin [place] 21, [place] [address] H 09/08/24 16:26: Hemoglobin A1c 6.3 H, TSH 1.120 09/08/24 18:18: Magnesium 2.1, Troponin T Hi Sens 2 Hr 18 09/08/24 22:53: Troponin T Hi Sens 4Hr 21 09/09/24 07:24: WBC 6.0, RBC 5.27, Hgb 13.9, Hct 43.4, MCV 82.4, MCH 26.4 L, MCHC 32.0, RDW Std Deviation 59.5 H, RDW Coeff of Ambreen 20.6 H, Plt Count 195, MPV 9.7, Immature Gran % (Auto) 0.300, Neut % (Auto) 71.2 H, Lymph % (Auto) 13.2 L, Menard % (Auto) 14.1 H, Eos % (Auto) 0.5, Baso % (Auto) 0.7, Absolute Neuts (auto) 4.3, Absolute Lymphs (auto) 0.79 L, Nucleated RBC % 0, Differential Comment SCANNED, Anisocytosis 2+, Sodium 133, Potassium 3.6, Chloride 100, Carbon Dioxide 18.6 L, Anion Gap 15, BUN 34 H, Creatinine 2.52 H, Estim Creat Clear Calc 34.84 L, Est GFR (MDRD) Non-Af 26 L, BUN/Creatinine Ratio 13.6, Glucose 97, Calcium 8.5, Phosphorus 3.7, Total Bilirubin 0.67, AST 22, ALT 12, Alkaline Phosphatase 98, Total Protein 7.7, Albumin 3.4, Globulin 4.3 H, Albumin/Globulin Ratio 0.8 L, Triglycerides 92, Cholesterol 127, LDL Cholesterol, Calc 64, VLDL Cholesterol 18, HDL Cholesterol 45, Cholesterol/HDL Ratio 2.84 Micro: Microbiology 09/09/24 13:02 Stool Clostridioides difficile (PCR) - Final 09/09/24 10:20 Mucosa - Nasopharyngeal Respiratory Panel (PCR) - Final Influenza A (Subtype H3) Cardiology Labs/Tests 09/08/24 16:19: WBC 9.6, RBC 5.46, Hgb 14.4, Hct 45.3, MCV 83.0, MCH 26.4 L, M CHC 31.8 L, Plt Count 239, MPV 10.1, Immature Gran % (Auto) 0.600, Neut % (Auto) 84.3 H, Lymph % (Auto) 5.0 L, Menard % (Auto) 9.6, Eos % (Auto) 0.1, Baso % (Auto) 0.4, Absolute Neuts (auto) 8.1 H, Nucleated RBC % 0, Sodium 135, Potassium 4.3, Chloride 100, Carbon Dioxide 20.3 L, Anion Gap 15, BUN 29 H, Creatinine 2.41 H, Est GFR (MDRD) Non-Af 27 L, BUN/Creatinine Ratio 12.0, Glucose 122 H, Calcium 8.5 09/08/24 16:26: Hemoglobin A1c 6.3 H 09/08/24 18:18: Magnesium 2.1 09/09/24 07:24: WBC 6.0, RBC 5.27, Hgb 13.9, Hct 43.4, MCV 82.4, MCH 26.4 L, MCHC 32.0, Plt Count 195, MPV 9.7, Immature Gran % (Auto) 0.300, Neut % (Auto) 71.2 H, Lymph % (Auto) 13.2 L, Menard % (Auto) 14.1 H, Eos % (Auto) 0.5, Baso % (Auto) 0.7, Absolute Neuts (auto) 4.3, Nucleated RBC % 0, Sodium 133, Potassium 3.6, Chloride 100, Carbon Dioxide 18.6 L, Anion Gap 15, BUN 34 H, Creatinine 2.52 H, Est GFR (MDRD) Non-Af 26 L, BUN/Creatinine Ratio 13.6, Glucose 97, Calcium 8.5, Phosphorus 3.7, Total Bilirubin 0.67, Triglycerides 92, Cholesterol 127, VLDL Cholesterol 18, HDL Cholesterol 45, Cholesterol/HDL Ratio 2.84 Rhythm: EKG: ECHO: Stress Test: Cardiac Cath: PCI: CT Surgery: Holter monitor: EPS: PPM: CXR: Chest CT Scan: Radiography Diagnostic Testing: Radiology Impression Chest X-Ray 09/08/24 16:25 IMPRESSION: Mild cardiomegaly and pulmonary vascular congestion. Reading Location: [facility]
[2024-09-09] MEDS: dilTIAZem 30 MG Tablet PO (15:08)
[2024-09-10] VITALS (8 sets, daily range): BP systolic 132–173; BP diastolic 87–110; PULSE 71–97; RESP 18–20; TEMP 36.4–37; O2SAT 94–96; BMI 43.9
[2024-09-10] MEDS: dilTIAZem 30 MG Tablet PO ×3 (01:00→12:17)
[2024-09-10 06:08] LABS: Absolute Lymphocyte Count 0.66 X10^3/uL (0.83-4.51); Absolute Neutrophil Count 4.8 X10^3/uL (2.0-7.7); Basophil# 0.04 X10^3/uL; Basophil% 0.6 % (0-1); Eosinophil# 0.31 X10^3/uL; Eosinophils% 4.6 % (0-5); Hematocrit 41.1 % (40-54); Hemoglobin 13.4 g/dL (13.0-16.5); Lymphocyte # 0.66 X10^3/ul (0.83-4.51); Lymphocyte % 9.9 % (19-41); Mean Corp Hgb Conc 32.6 g/dL (32-36); Mean Corpuscular Hgb 26.5 pg (27.0-32.0); Mean Corpuscular Volume 81.4 fL (80-94); Mean Platelet Vol. 9.8 fl (6.2-12.0); Monocyte# 0.82 X10^3/uL; Monocyte% 12.3 % (0-10); NRBC Flagged by Analyzer 0 % (0-5); Neutrophil # 4.84 X10^3/uL (2.7-7.7); Neutrophil % 72.3 % (47-70); Platelet Count 200 K/mm3 (150-450); RBC Distribution Width CV 19.7 % (11.6-14.6); RBC Distribution Width SD 57.9 fl (35.1-43.9); Red Blood Count 5.05 M/mm3 (4.6-6.2); White Blood Count 6.7 K/mm3 (4.4-11.0)
[2024-09-10] MEDS: hydrALAZINE 20 MG/ML Vial 5 MG IV (06:08)
[2024-09-10 06:58] LABS: Anion Gap 13 (5-15); BUN 36 mg/dL (4-19); BUN/Creat Ratio 14.8 RATIO (10-20); Calcium,Total 8.1 mg/dL (7.6-11.0); Carbon Dioxide 20.8 mmol/L (21.0-32.0); Chloride 103 mmol/L (98-108); Creatinine, Serum 2.43 mg/dL (0.70-1.20); EST Glomerular Filtration Rate 27 (>60); Estimated Creatinine Clearance 36.36 ml/min (50-250); Glucose 99 mg/dL (70-99); Phosphorus 3.2 mg/dL (2.7-4.5); Potassium 3.2 mmol/L (3.3-5.1); Sodium Level 137 mmol/L (133-145)
[2024-09-10] MEDS: Aspirin E.C. 81 MG Tablet PO (09:03)
[2024-09-10] MEDS: Magnesium Chloride 64 MG Delay Rel.Tablet 128 MG PO (09:03)
[2024-09-10] MEDS: Famotidine 20 MG Tablet PO (09:03)
[2024-09-10] MEDS: Metoprolol(XL)Succ 200 MG Tablet PO (09:04)
[2024-09-10] MEDS: Potassium Chloride Oral Tablet 10 MEQ PO (09:05)
[2024-09-10] MEDS: APIXABAN 2.5 MG TABLET (WCH) PO (09:05)
[2024-09-10] MEDS: guaiFENesin 10 ML UDC (200MG/10ML) 20 ML PO (09:10)
[2024-09-10] MEDS: Acetaminophen 325 MG Tablet 650 MG PO (09:10)
[2024-09-10] MEDS: Potassium Chloride Oral Tablet 20 MEQ 60 MEQ PO (09:52)
[2024-09-10] MEDS: Furosemide 40 MG Tablet PO (09:52)
--- NOTE | 2024-09-10 12:25 | DCINST_ITS ---
Discharge Instructions Diet Discharge Diet: - (DASH diet) DC O2, CPAP, BIPAP needs Home O2 Discharge instructions: No Dressing / Incision Discharge Activity: - (Increase activity as tolerated) Follow Up Care Test Results: Test results from this visit will be discussed in further detail at your follow- up appointment, if applicable. Discharge Plan Admission Admit Date/Time: 09/08/24 19:59 Primary Reason for Your Visit: Shortness of breath and palpitations Attending Provider: Suyapa Bauer Primary Care Provider: Tacos Sutton Consulting Providers: Jaron Shaikh; Ara Duncan; Robb Francis; Alexandrea Anderson; Klaus Oneill; Bam Briggs; Mary Childs; Victoriano Hill; Lena Haynes; Jordi Zuñiga; Isrrael Alas; Roshan Ruiz NP; Kaycee Green PA; Didier Robles Instructions Patient Instructions: AFib Dc Additional Instructions / Restrictions: DISCHARGE INSTRUCTIONS PLEASE READ *Please take this with you to your next doctors appointment* - You will be discharged on your home medications with the addition of Cardizem 120 mg capsules twice daily and Eliquis 2.5 mg twice daily -Weigh yourself every day. A sudden weight gain can mean you are retaining fluid. Weigh yourself at the same time of day and in the same kind of clothes. Ideally, weigh yourself first thing in the morning after you empty your bladder, but before you eat breakfast. -Please call your physician if your weight goes up by more than 2 pounds in 1 day or 5 pounds in 1 week. This can be a sign that you are retaining more fluid than you should be. -Please follow-up with your primary cost and risk analysis manager upon discharge, please call on Wednesday to schedule hospital follow-up appointment -Please call your primary care provider's office upon discharge to schedule a hospital follow up within 1 week. -For any concerning signs or symptoms please call 911 or proceed to the nearest emergency department Discharge Orders/Prescriptions Prescriptions: New diltiazem HCl [Cardizem CD] 120 mg capsule,extended release 24hr 120 mg PO BID 30 Days Qty: 60 0RF Eliquis 5 mg Tablet 2.5 mg PO BID 30 Days Qty: 30 0RF Continued famotidine 40 mg tablet 40 mg PO QDAY aspirin 81 mg tablet,delayed release (DR/EC) 81 mg PO DAILY potassium chloride 10 mEq capsule, extended release 10 meq PO BID polyethylene glycol 3350 [Miralax] 17 gram/dose powder 4 g PO QDAY metoprolol succinate 200 mg tablet extended release 24 hr 200 mg PO QDAY Qty: 90 3RF psyllium husk [Metamucil] 0.4 gram capsule 0.4 g PO DAILY furosemide 40 mg Tablet 40 mg PO DAILY Qty: 40 0RF Referrals / Follow Up: Alexandrea Anderson MD [Med Staff - Active Staff] - (-Please follow-up with your primary cost and risk analysis manager upon discharge, please call on Wednesday to schedule hospital follow-up appointment ) Tacos Sutton DO [Primary Care Provider] - Within 1 Week Disposition Disposition (needs filled in before D/C Order can be placed): Home, Self Care
--- NOTE | 2024-09-10 12:33 | DS.PCM_ITS ---
Providers Date of Admission: 09/08/24 Date of Discharge: 09/10/24 Primary Care Physician: Dr. Tacos Sutton, DO Consultations 09/08/24 20:56 Consult: Cardiology Routine Consulting Provider: Nadia Dozier Reason for Consult: Hypertensive Emergency, PAF; with RVR & AE CHF. EMERGENT Consult: No MD Notified: Yes Date Notified: 09/09/24 Time Notified: 06:42 Method of Notification: Text Method of Consult:: In-Person Reason For Visit: HYPERTENSIVE EMERGENCY, PAF; WITH RVR, AE CHF Diagnosis Discharge Diagnosis (1) Hypertensive emergency: Status: Acute Code(s): I16.1 - Hypertensive emergency (2) Paroxysmal atrial fibrillation with rapid ventricular response: Status: Acute Code(s): I48.0 - Paroxysmal atrial fibrillation (3) Acute CHF (congestive heart failure): Status: Acute Code(s): I50.9 - Heart failure, unspecified Qualifiers: Heart failure type: diastolic Qualified Code(s): I50.31 - Acute diastolic (congestive) heart failure (4) BMI 45.0-49.9, adult: Status: Acute Code(s): Z68.42 - Body mass index [BMI] 45.0-49.9, adult (5) Obstructive sleep apnea: Status: Acute Code(s): G47.33 - Obstructive sleep apnea (adult) (pediatric) (6) CAD (coronary artery disease): Status: Chronic Code(s): I25.10 - Atherosclerotic heart disease of [place] coronary artery without angina pectoris Qualifiers: Associated angina: without angina Coronary Disease-Associated Artery/Lesion type: unspecified vessel or lesion type [place] vs. transplanted heart: [place] heart Qualified Code(s): I25.10 - Atherosclerotic heart disease of [place] coronary artery without angina pectoris (7) CKD (chronic kidney disease): Status: Chronic Code(s): N18.9 - Chronic kidney disease, unspecified Qualifiers: Chronic kidney disease stage: stage 3 (moderate) Chronic kidney disease stage 3 subtype: stage 3b (GFR 30-44) Qualified Code(s): N18.32 - Chronic kidney disease, stage 3b Plan #Afib w/ RVR # Acute exacerbation of chronic heart failure with preserved ejection fraction # CKD stage IV # History of left-sided carotid endarterectomy #Morbid obesity #ARNULFO Medications at Discharge Home Medications psyllium husk 0.4 gram capsule (Metamucil) 0.4 g PO DAILY constipation 05/13/23 furosemide 40 mg tablet 40 mg PO DAILY diuretic #40 tabs 05/16/23 aspirin 81 mg tablet,delayed release 81 mg PO DAILY preventative 10/28/23 potassium chloride 10 mEq capsule,extended release 10 meq PO BID supplement 12/22/23 metoprolol succinate 200 mg tablet,extended release 24 hr 200 mg PO QDAY blood pressure #90 tabs 03/29/24 polyethylene glycol 3350 17 gram/dose oral powder (Miralax) 4 g PO QDAY 03/29/24 famotidine 40 mg tablet 40 mg PO QDAY reflux 05/04/24 apixaban 5 mg tablet (Eliquis) 2.5 mg (1/2 x 5 mg) PO BID 30 days #30 tabs 09/10/24 diltiazem HCl 120 mg capsule,extended release 24 hr (Cardizem CD) 120 mg PO BID 30 days #60 caps 09/10/24 Hospital Course Summary of Care Provided Minutes Spent on Discharge: 32 Hospital Course: #Afib w/ RVR # Acute exacerbation of chronic heart failure with preserved ejection fraction # CKD stage IV # History of left-sided carotid endarterectomy #Morbid obesity #ARNULFO 74-year-old male with the above presented to [facility] 09/08/24 due to shortness of breath and palpitations, he was sent in by his PCP as he was found to be in A-fib with RVR, patient placed on Cardizem drip and admitted under the hospitalist service. Patient started on anticoagulation and cardiology consulted. Additionally patient did seem to be fluid overloaded, likely due to RVR and he was placed on IV Lasix. Patient was transitioned to oral Cardizem and drip stopped and his metoprolol continued. Patient did well. Also patient had complained of some GI symptoms and was found to be fluid positive. Overall patient doing much better on day of discharge with rate controlled and no new acute complaints. Discharge instructions as follows: - You will be discharged on your home medications with the addition of Cardizem 120 mg capsules twice daily and Eliquis 2.5 mg twice daily -Weigh yourself every day. A sudden weight gain can mean you are retaining fluid. Weigh yourself at the same time of day and in the same kind of clothes. Ideally, weigh yourself first thing in the morning after you empty your bladder, but before you eat breakfast. -Please call your physician if your weight goes up by more than 2 pounds in 1 day or 5 pounds in 1 week. This can be a sign that you are retaining more fluid than you should be. -Please follow-up with your primary costume rental clerk upon discharge, please call on Wednesday to schedule hospital follow-up appointment -Please call your primary care provider's office upon discharge to schedule a hospital follow up within 1 week. -For any concerning signs or symptoms please call 911 or proceed to the nearest emergency department Physical Exam Narrative General: Alert, oriented, no apparent distress HEENT: Atraumatic, normocephalic Eyes: Anicteric, normal conjunctiva, extraocular movements grossly intact Neck: Supple Respiratory: Somewhat diminished at the bases but seems largely due to habitus, normal respiratory effort Cardiovascular: Irregularly irregular, not tachycardic GI: Slightly firm without any tenderness, rebound, guarding, rigidity Extremities: No significant pitting edema Musculoskeletal: Moving all extremities Neuro: No overt focal neurological deficits Skin: No rashes appreciated Psych: Cooperative Weight / BMI Weight Weight: 134.9 kg Body Mass Index (BMI) 43.9 ABG / Lab / Microbiology Data 09/10/24 05:44 09/10/24 05:44 Laboratory: Laboratory Results - last 24 hr 09/10/24 05:44: WBC 6.7, RBC 5.05, Hgb 13.4, Hct 41.1, MCV 81.4, MCH 26.5 L, MCHC 32.6, RDW Std Deviation 57.9 H, RDW Coeff of Ambreen 19.7 H, Plt Count 200, MPV 9.8, Immature Gran % (Auto) 0.300, Neut % (Auto) 72.3 H, Lymph % (Auto) 9.9 L, Shannon % (Auto) 12.3 H, Eos % (Auto) 4.6, Baso % (Auto) 0.6, Absolute Neuts (auto) 4.8, Absolute Lymphs (auto) 0.66 L, Nucleated RBC % 0, Sodium 137, Potassium 3.2 L, Chloride 103, Carbon Dioxide 20.8 L, Anion Gap 13, BUN 36 H, Creatinine 2.43 H, Estim Creat Clear Calc 36.36 L, Est GFR (MDRD) Non-Af 27 L, BUN/Creatinine Ratio 14.8, Glucose 99, Calcium 8.1, Phosphorus 3.2 Microbiology: Microbiology 09/09/24 13:02 Stool Enteric Bacteriology - Final 09/09/24 13:02 Stool Clostridioides difficile (PCR) - Final 09/09/24 10:20 Mucosa - Nasopharyngeal Respiratory Panel (PCR) - Final Influenza A (Subtype H3) D/C Instructions Discharge Diet: - (DASH diet) DC O2, CPAP, BIPAP Needs Home O2 Discharge instructions: No Meaningful Use Info Meaningful Use Meaningful Use Diagnoses (Choose all that apply): CHF CHF ESTELA/ARB ordered at discharge?: No Reason ESTELA/ARB not ordered?: Worsening renal dysfunctn Documented LVEF (%): 55 Ischemic Stroke Statin Dosing Therapy Reference: STATIN DOSE THERAPY REFERENCE: * Patients > 75 years receive moderate or high dose statin therapy. * Patients 75 years or YOUNGER should receive HIGH intensity statin dose unless contraindicated. You will be required to document reason for non-treatment if statin daily dose does not meet guidelines. HIGH DOSE STATIN THERAPY DAILY Atorvastatin > than or = to 40 mg Rosuvastatin > than or = to 20 mg Amlodipine + Atorvastatin > than or = to 2.5/40 mg Ezetimibe + Simvastatin 10/80 mg Simvastatin 80mg Discharge Plan Admission Admit Date/Time: 09/08/24 19:59 Primary Reason for Your Visit: Shortness of breath and palpitations Attending Provider: Suyapa Bauer Primary Care Provider: Tacos Sutton Consulting Providers: Jaron Shaikh; Ara Duncan; Robb Francis; Alexandrea Anderson; Klaus Oneill; Bam Briggs; Mary Childs; Victoriano Hill; Lena Santana; Jordi Zuñiga; Isrrael Alas; Roshan Ruiz NP; Kaycee Green; Didier Robles Instructions Patient Instructions: AFib Dc Additional Instructions / Restrictions: DISCHARGE INSTRUCTIONS PLEASE READ *Please take this with you to your next doctors appointment* - You will be discharged on your home medications with the addition of Cardizem 120 mg capsules twice daily and Eliquis 2.5 mg twice daily -Weigh yourself every day. A sudden weight gain can mean you are retaining fluid. Weigh yourself at the same time of day and in the same kind of clothes. Ideally, weigh yourself first thing in the morning after you empty your bladder, but before you eat breakfast. -Please call your physician if your weight goes up by more than 2 pounds in 1 day or 5 pounds in 1 week. This can be a sign that you are retaining more fluid than you should be. -Please follow-up with your primary costume rental clerk upon discharge, please call on Wednesday to schedule hospital follow-up appointment -Please call your primary care provider's office upon discharge to schedule a hospital follow up within 1 week. -For any concerning signs or symptoms please call 911 or proceed to the nearest emergency department Discharge Orders/Prescriptions Prescriptions: New diltiazem HCl [Cardizem CD] 120 mg capsule,extended release 24hr 120 mg PO BID 30 Days Qty: 60 0RF Eliquis 5 mg Tablet 2.5 mg PO BID 30 Days Qty: 30 0RF Continued famotidine 40 mg tablet 40 mg PO QDAY aspirin 81 mg tablet,delayed release (DR/EC) 81 mg PO DAILY potassium chloride 10 mEq capsule, extended release 10 meq PO BID polyethylene glycol 3350 [Miralax] 17 gram/dose powder 4 g PO QDAY metoprolol succinate 200 mg tablet extended release 24 hr 200 mg PO QDAY Qty: 90 3RF psyllium husk [Metamucil] 0.4 gram capsule 0.4 g PO DAILY furosemide 40 mg Tablet 40 mg PO DAILY Qty: 40 0RF Referrals / Follow Up: Alexandrea Anderson MD [Med Staff - Active Staff] - (-Please follow-up with your primary costume rental clerk upon discharge, please call on Wednesday to schedule hospital follow-up appointment ) Tacos Sutton DO [Primary Care Provider] - Within 1 Week Disposition Disposition (needs filled in before D/C Order can be placed): Home, Self Care Charges/Coding Visit Charges Inpatient E&M: 57027 Disch Hosp >30min
== END 2024-09-10 14:01 | disposition home or self-care (01) | DRG 291 ==
LOC: ED 19:05 → PCU 19:39
PROVIDERS: Admitting Provider Internal Medicine; Emergency Provider Emergency Medicine; PCP Family Medicine; Referring Provider Internal Medicine; Visit Provider Internal Medicine
DX: I13.0 Hypertensive heart and chronic kidney disease with heart failure and stage 1 through stage 4 chronic kidney disease, or unspecified chronic kidney disease (principal); I50.33 Acute on chronic diastolic (congestive) heart failure; I16.1 Hypertensive emergency; N18.4 Chronic kidney disease, stage 4 (severe); Z68.42 Body mass index [BMI] 45.0-49.9, adult; J44.9 Chronic obstructive pulmonary disease, unspecified; I48.0 Paroxysmal atrial fibrillation; I25.119 Atherosclerotic heart disease of native coronary artery with unspecified angina pectoris; M17.12 Unilateral primary osteoarthritis, left knee; K21.9 Gastro-esophageal reflux disease without esophagitis; G47.33 Obstructive sleep apnea (adult) (pediatric); E66.01 Morbid (severe) obesity due to excess calories; E78.5 Hyperlipidemia, unspecified; I25.2 Old myocardial infarction; R19.7 Diarrhea, unspecified; J11.1 Influenza due to unidentified influenza virus with other respiratory manifestations; Z79.82 Long term (current) use of aspirin; Z87.891 Personal history of nicotine dependence; Z79.899 Other long term (current) drug therapy; Z99.89 Dependence on other enabling machines and devices; Z90.49 Acquired absence of other specified parts of digestive tract; Z85.820 Personal history of malignant melanoma of skin; Z96.652 Presence of left artificial knee joint; Z98.41 Cataract extraction status, right eye; Z98.42 Cataract extraction status, left eye
CPT/HCPCS: 36415; 71046; 80048; 83036; 83735; 83880; 84100; 84443; 84484; 85025; 93005; 94660; 94668; 99252; 99285; A4216; G0463; J1940

== ENCOUNTER → 2024-09-15 | Outpatient (CLI) | payer MEDICARE, OTHER, SELFPAY ==
[2024-09-15 11:12] LABS: Absolute Lymphocyte Count 0.93 X10^3/uL (0.83-4.51); Absolute Neutrophil Count 5.9 X10^3/uL (2.0-7.7); Basophil# 0.05 X10^3/uL; Basophil% 0.6 % (0-1); Eosinophil# 0.19 X10^3/uL; Eosinophils% 2.4 % (0-5); Hemoglobin 13.3 g/dL (13.0-16.5); Lymphocyte # 0.93 X10^3/ul (0.83-4.51); Lymphocyte % 11.9 % (19-41); Mean Corp Hgb Conc 32.4 g/dL (32-36); Mean Corpuscular Hgb 26.4 pg (27.0-32.0); Mean Corpuscular Volume 81.3 fL (80-94); Mean Platelet Vol. 9.2 fl (6.2-12.0); Monocyte# 0.71 X10^3/uL; Monocyte% 9.1 % (0-10); NRBC Flagged by Analyzer 0 % (0-5); Neutrophil # 5.89 X10^3/uL (2.7-7.7); Neutrophil % 75.6 % (47-70); Platelet Count 280 K/mm3 (150-450); RBC Distribution Width CV 18.9 % (11.6-14.6); RBC Distribution Width SD 54.9 fl (35.1-43.9); Red Blood Count 5.04 M/mm3 (4.6-6.2); White Blood Count 7.8 K/mm3 (4.4-11.0)
[2024-09-15 11:49] LABS: Anion Gap 11 (5-15); BUN 31 mg/dL (4-19); BUN/Creat Ratio 13.6 RATIO (10-20); Calcium,Total 8.5 mg/dL (7.6-11.0); Carbon Dioxide 22.6 mmol/L (21.0-32.0); Chloride 104 mmol/L (98-108); Creatinine, Serum 2.28 mg/dL (0.70-1.20); EST Glomerular Filtration Rate 29 (>60); Glucose 109 mg/dL (70-99); Pro- Brain NATRIURETIC PEPTIDE 3961 pg/mL (<=900); Sodium Level 137 mmol/L (133-145)
== END | disposition home or self-care (01) ==
LOC: LAB 10:50
PROVIDERS: PCP Family Medicine; Referring Provider Nurse Practitioner Gerontology; Visit Provider Nurse Practitioner Gerontology
DX: R06.09 Other forms of dyspnea (principal)
CPT/HCPCS: 36415; 80048; 83880; 85025

== ENCOUNTER → 2025-03-27 | Outpatient (CLI) | payer MEDICARE, OTHER, SELFPAY ==
--- NOTE | 2025-03-27 09:53 | RAD_ITS ---
PROCEDURE: FINGER(S) MIN 2 VIEWS 03/27/2025 REASON FOR EXAM: RIGHT THUMB PAIN X 2 MONTHS, NO INJURY TECHNIQUE: Procedure Code: RADFIN Modality: DX Procedure: FINGER(S) MIN 2 VIEWS Laterality: Right thigh COMPARISON: None FINDINGS: Bones: No fracture seen. Joints: Normal alignment. Mild degenerative changes. Soft tissues: Soft tissues are unremarkable. Other: RAD/Finger(s) Min 2 Views IMPRESSION: Mild degree of degenerative changes. Reading Location: [facility]
== END | disposition home or self-care (01) ==
PROVIDERS: PCP Family Medicine; Referring Provider Family Medicine; Visit Provider Family Medicine
DX: M79.645 Pain in left finger(s) (principal)
CPT/HCPCS: 73140